=== PATIENT | male | born 1950 | race Caucasian/White ===

== ENCOUNTER 2016-08-04 15:48 | Outpatient (CLI) | payer MEDICARE, OTHER | END 2016-08-04 15:49 | disposition home or self-care (01) | DX: E29.1 Testicular hypofunction (principal) ==

== ENCOUNTER 2016-09-07 07:20 | Day surgery (SDC) | payer MEDICARE, OTHER ==
[2016-09-07] MEDS ORDERED: PHENYLEPHRINE 2.5% OPHTH 2 ML DROPS ONE (07:33)
[2016-09-07] MEDS ORDERED: LACTATED RINGERS 500 ML IV ONE (07:53)
[2016-09-07] MEDS ORDERED: PHENYLEPHRINE 2.5% OPHTH 2 ML DROPS OPTH ONE (07:57)
[2016-09-07] MEDS ORDERED: CYCLOPENTOLATE 1% OPHTH DROPS 2 ML OPTH ONE (07:57)
[2016-09-07] MEDS ORDERED: KETOROLAC 0.45% OPHTH DROPS OPTH ONE (07:57)
[2016-09-07] MEDS ORDERED: PROPARACAINE 0.5% OPHTH DROPS 15 ML OPTH ONE (07:57)
[2016-09-07] MEDS ORDERED: MIDAZOLAM 2 MG/2 ML VIAL IVP ONE (09:00)
[2016-09-07] MEDS ORDERED: PROPOFOL 200 MG/20 ML VIAL IVP ONE (09:00)
[2016-09-07] MEDS ORDERED: LIDOCAINE-PF 2% 10 ML AMP SUBQ ONE (09:00)
[2016-09-07] MEDS ORDERED: EPINEPHrine 1 MG/ML AMP IVP ONE (09:08)
[2016-09-07] MEDS ORDERED: BRIMONIDINE 0.2% OPHTH DROPS 5 ML OPTH ONE (09:08)
[2016-09-07] MEDS ORDERED: CHONDR SULF/HYALURONATE SYRINGE IO ONE (09:09)
[2016-09-07] MEDS ORDERED: TIMOLOL 0.5% OPHTH DROPS OPTH ONE (09:09)
[2016-09-07] MEDS ORDERED: BSS/LIDOCAINE/EPINEPHRINE 1 ML SYRINGE IO ONE (09:10)
[2016-09-07] MEDS ORDERED: TRIAMCIN/MOXIFLOX/VANCO 1 ML VIAL IO ONE (09:10)
== END 2016-09-07 07:21 | disposition home or self-care (01) ==
PROC: 08RJ3JZ Replacement of Right Lens with Synthetic Substitute, Percutaneous Approach (ICD-10-PCS; principal; 2016-09-07 08:30)
DX: H25.811 Combined forms of age-related cataract, right eye (principal); Z86.711 Personal history of pulmonary embolism; I10 Essential (primary) hypertension; G47.33 Obstructive sleep apnea (adult) (pediatric); Z87.01 Personal history of pneumonia (recurrent); F17.210 Nicotine dependence, cigarettes, uncomplicated; I48.91 Unspecified atrial fibrillation
CPT/HCPCS: 66984; A9270; V2632

== ENCOUNTER 2016-11-10 08:00 | Outpatient (CLI) | payer MEDICARE, OTHER ==
[2016-11-10 18:45] LABS: BASOPHILS # (AUTO) 0.1 10^3/uL (0.0-0.1); BASOPHILS % (AUTO) 0.7 %; EOSINOPHILS # (AUTO) 0.2 10^3/uL (0.0-0.7); EOSINOPHILS % (AUTO) 2.4 %; HCT - HEMATOCRIT 44.2 % (42.0-52.0); HGB - HEMOGLOBIN 15.5 g/dL (14.0-18.0); LYMPHOCYTES # (AUTO) 1.9 10^3/uL (1.5-3.5); LYMPHOCYTES % (AUTO) 22.6 %; MEAN CORPUSCULAR HEMOGLOBIN 32.1 pg (27.0-31.0); MEAN CORPUSCULAR HGB CONC 35.1 g/dL (32.0-36.0); MEAN CORPUSCULAR VOLUME 91.4 fL (80.0-94.0); MEAN PLATELET VOLUME 7.9 fL (7.4-11.4); MONOCYTES # (AUTO) 0.6 10^3/uL (0.0-1.0); MONOCYTES % (AUTO) 6.9 %; NEUTROPHILS # (AUTO) 5.6 10^3/uL (1.5-6.6); NEUTROPHILS % (AUTO) 67.4 %; RED BLOOD COUNT 4.84 10^6/uL (4.70-6.10); RED CELL DISTRIBUTION WIDTH 14.8 % (12.0-15.0); UNCORRECTED WHITE BLOOD COUNT 8.3 x10^3/uL; WHITE BLOOD COUNT 8.3 x10^3/uL (4.8-10.8)
== END 2016-11-10 08:01 | disposition home or self-care (01) ==
LOC: LAB.F 08:00
PROVIDERS: ATTEND Internal Medicine Endocrinology, Diabetes & Metabolism
DX: E29.1 Testicular hypofunction (principal)
CPT/HCPCS: 36415; 84153; 84403; 85025

== ENCOUNTER 2017-01-26 08:43 | Outpatient (CLI) | payer MEDICARE, OTHER ==
--- NOTE | 2017-01-26 11:12 | CT Report ---
CT BRAIN WITHOUT CONTRAST: 01/26/2017 CLINICAL INDICATION: Trauma. TECHNIQUE: Axial CT images of the brain were obtained without intravenous contrast. No previous CT is available for comparison. FINDINGS: The ventricles and sulci are normal in size, shape, and configuration. The basilar cister ns are patent. There is no evidence of hemorrhage, mass effect, or midline shift. The visualized or bital contents and paranasal sinuses are unremarkable. IMPRESSION: NORMAL CT OF THE BRAIN WITHOUT CONTRAST. In accordance with CT protocol optimization, one or more of the following dose reduction techniques w ere utilized for this exam: automated exposure control, adjustment of mA and/or KV based on patient size, or use of iterative reconstructive technique. JOB #: [id number] EXT JOB #:[id number]
--- NOTE | 2017-01-26 11:36 | XRAY Report ---
RIGHT HIP AND PELVIS: 01/26/2017 CLINICAL INDICATION: Pain. FINDINGS: Frontal view of the hips and pelvis and frogleg lateral view of the right hip demonstrate mild osteoarthritis. There is no evidence of acute fracture. Mild degenerative changes are seen in the sacroiliac joints. IMPRESSION: MILD RIGHT HIP OSTEOARTHRITIS. JOB #: [id number] EXT JOB #:[id number]
== END 2017-01-26 08:44 | disposition home or self-care (01) ==
LOC: DI 08:43
PROVIDERS: ATTEND Nurse Practitioner Family
DX: M25.551 Pain in right hip (principal); M16.11 Unilateral primary osteoarthritis, right hip; R51 Headache; S09.90XA Unspecified injury of head, initial encounter
CPT/HCPCS: 70450

== ENCOUNTER 2017-03-16 10:45 | Outpatient (CLI) | payer MEDICARE, OTHER ==
[2017-03-16 11:27] LABS: BASOPHILS # (AUTO) 0.1 10^3/uL (0.0-0.1); BASOPHILS % (AUTO) 0.7 %; EOSINOPHILS # (AUTO) 0.2 10^3/uL (0.0-0.7); EOSINOPHILS % (AUTO) 2.4 %; HCT - HEMATOCRIT 45.1 % (42.0-52.0); HGB - HEMOGLOBIN 15.7 g/dL (14.0-18.0); LYMPHOCYTES # (AUTO) 1.6 10^3/uL (1.5-3.5); LYMPHOCYTES % (AUTO) 19.6 %; MEAN CORPUSCULAR HEMOGLOBIN 31.3 pg (27.0-31.0); MEAN CORPUSCULAR HGB CONC 34.7 g/dL (32.0-36.0); MEAN CORPUSCULAR VOLUME 90.1 fL (80.0-94.0); MEAN PLATELET VOLUME 7.4 fL (7.4-11.4); MONOCYTES # (AUTO) 0.7 10^3/uL (0.0-1.0); MONOCYTES % (AUTO) 8.3 %; NEUTROPHILS # (AUTO) 5.8 10^3/uL (1.5-6.6); NUCLEATED RED BLOOD CELLS AUTO 0.1 /100WBC; RED BLOOD COUNT 5.01 10^6/uL (4.70-6.10); RED CELL DISTRIBUTION WIDTH 14.8 % (12.0-15.0); UNCORRECTED WHITE BLOOD COUNT 8.4 x10^3/uL; WHITE BLOOD COUNT 8.4 x10^3/uL (4.8-10.8)
== END 2017-03-16 10:46 | disposition home or self-care (01) ==
LOC: LAB 10:45
PROVIDERS: ATTEND Internal Medicine Endocrinology, Diabetes & Metabolism
DX: E29.1 Testicular hypofunction (principal)
CPT/HCPCS: 36415; 84153; 84403; 85025

== ENCOUNTER 2017-09-14 13:50 | Emergency (ER) | payer MEDICARE, OTHER ==
--- NOTE | 2017-09-14 14:24 | ED Physician Documentation ---
PD HPI CHEST PAIN - Stated complaint Stated Complaint: CHEST PX - Chief complaint Chief Complaint: Cardiac - History obtained from History obtained from: Patient, Family - History of Present Illness Timing - onset: How many days ago (3) Timing - onset during: Light activity Timing - duration: Days (3) Timing - details: Gradual onset, Still present, Waxing and waning Quality: Pressure, Sharp Location: Substernal Radiation: Left upper extremity Improved by: Rest, Other (water) Worsened by: Exertion, Inspiration Associated symptoms: Nausea, Feeling faint / dizzy. No: Shortness of air, Vomiting Similar symptoms before: Has not had sx before Recently seen: Clinic - Additional information Additional information: 67 y/o male developed anterior chest pain after getting on to his tractor to mow his lawn. This pain resolved with water. He subsequently had a return of the pain when he started to use his seeder and he has come to the ED today with pain. He has not shortness of breath or diaphoresis. Review of Systems Constitutional: denies: Fever Eyes: denies: Decreased vision Ears: denies: Ear pain Nose: denies: Congestion Throat: denies: Sore throat Cardiac: reports: Chest pain / pressure, Other (pain and fullness in the left femoral area.). denies: Palpitations, Pedal edema, Calf pain Respiratory: reports: Dyspnea, Cough GI: denies: Abdominal Pain, Nausea, Vomiting : denies: Dysuria, Frequency Skin: denies: Rash Musculoskeletal: denies: Neck pain, Back pain, Extremity pain Neurologic: denies: Generalized weakness, Focal weakness, Numbness PD PAST MEDICAL HISTORY - Past Medical History Cardiovascular: High cholesterol, Pulmonary embolism Respiratory: Pneumonia, Sleep apnea, CPAP use Neuro: None Endocrine/Autoimmune: None GI: Colon polyps, Hemorrhoids : None HEENT: Chronic vision loss Psych: None, Claustrophobia Musculoskeletal: Osteoarthritis Derm: Other - Past Surgical History Past Surgical History: Yes General: Colonoscopy Ortho: Knee replacement HEENT: Cataracts, Tonsil/Adenoidectomy - Present Medications Home Medications: Ambulatory Orders Medication Instructions Recorded Confirmed Hydrocodone/Acetaminophen 1 each PO DAILY 10/18/12 07/26/17 [Hydrocodon-Acetaminophn 10-325] Morphine Sulfate [Ms Contin] 15 mg PO TID 03/30/14 07/26/17 Testosterone Cypionate 120 mg IM ONCE 03/30/14 07/26/17 Aspirin [Aspir 81] 81 mg PO DAILY 07/03/14 07/26/17 - Allergies Allergies/Adverse Reactions: Allergies Allergy/AdvReac Type Severity Reaction Status Date / Time hydromorphone HCl * AdvReac Intermediate Respiratory Verified 09/14/17 14:32 [From Dilaudid] - Social History Does the pt smoke?: Yes Smoking Status: Current every day smoker Does the pt drink ETOH?: No Does the pt have substance abuse?: No - Immunizations Immunizations are current?: Yes - POLST Patient has POLST: No PD ED PE NORMAL - Vitals Vital signs reviewed: Yes (normal ) - General General: Alert and oriented X 3, No acute distress, Well developed/nourished, Other (large male in no distress. ) - HEENT HEENT: Atraumatic, PERRL, EOMI - Neck Neck: Supple, no meningeal sign - Cardiac Cardiac: RRR, No murmur - Respiratory Respiratory: No respiratory distress, Clear bilaterally - Abdomen Abdomen: Soft, Non tender - Back Back: No CVA TTP, No spinal TTP - Derm Derm: Normal color, Warm and dry, No rash - Extremities Extremities: No deformity, No edema, Other (There is a palpable lymph node in the left femoral area. There is palpable non-tender soft tissue accumulation in this same area when he is standing. This does not feel like bowel in the femoral area. ) - Neuro Neuro: No motor deficit, No sensory deficit Eye Opening: Spontaneous Motor: Obeys Commands Verbal: Oriented GCS Score: 15 - Psych Psych: Normal mood, Normal affect Results - Vitals Vitals: Vital Signs - 24 hr 09/14/17 09/14/17 09/14/17 13:56 14:27 16:31 Temperature 37.3 C Heart Rate 90 83 79 Respiratory 20 17 19 Rate Blood Pressure 125/76 118/68 128/63 O2 Saturation 93 94 95 Oxygen O2 Source Room air - EKG (time done) 1356 Rate: Rate (enter#) (85) [place]: LAD Compare to prior EKG: Changed from prior EKG Computer interpretation: Agree with computer - Labs Labs: Laboratory Tests 09/14/17 09/14/17 09/14/17 14:00 14:00 14:00 WBC 8.9 RBC 5.02 Hgb 16.5 Hct 46.2 MCV 92.1 MCH 32.9 H MCHC 35.7 RDW 15.2 H Plt Count 182 MPV 7.5 Neut # 6.3 Lymph # 1.5 [place] # 0.7 Eos # 0.2 Baso # 0.1 Absolute Nucleated RBC 0.00 Nucleated RBC % 0.0 D-Dimer Sodium 136 Potassium 3.8 Chloride 102 Carbon Dioxide 25 Anion Gap 9.0 BUN 11 Creatinine 1.0 Estimated GFR (MDRD) 74 L Glucose 114 H Calcium 9.2 Total Bilirubin 1.1 H AST 51 H ALT 44 Alkaline Phosphatase 49 Troponin I < 0.04 Total Protein 7.1 Albumin 4.3 Globulin 2.8 Albumin/Globulin Ratio 1.5 Lipase 24 09/14/17 09/14/17 14:00 16:15 WBC RBC Hgb Hct MCV MCH MCHC RDW Plt Count MPV Neut # Lymph # [place] # Eos # Baso # Absolute Nucleated RBC Nucleated RBC % D-Dimer TNP Sodium Potassium Chloride Carbon Dioxide Anion Gap BUN Creatinine Estimated GFR (MDRD) Glucose Calcium Total Bilirubin AST ALT Alkaline Phosphatase Troponin I < 0.04 Total Protein Albumin Globulin Albumin/Globulin Ratio Lipase - Rads (name of study) 2 view chest Radiology: Prelim report reviewed (Impression: 1. Normal heart size and clear hyperinflated lungs. 2. Stable lateral pleural thickening bilaterally. 3.Chronic degenerative changes of left shoulder.), EMP read indepedently, See rad report PD MEDICAL DECISION MAKING - ED course Complexity details: considered differential, d/w patient, d/w family ED course: 67-year-old male with episode of chest pain today that has persisted has negative troponin 2 and unchanged electrocardiogram clear chest x-ray and no hypoxia. He does have some improvement in this pain with the use of viscous lidocaine Mylanta. He has temporary resolution of the pain.He passes a road test here in the emergency department. Departure - Departure Disposition: 01 Home, Self Care Clinical Impression: Atypical chest pain Condition: Stable Instructions: ED Chest Pain Atypical Unkn Cause Follow-Up: Guille Lara MD [Provider Admit Priv/Credential] - Tylor Arana MD [Primary Care Provider] -
[2017-09-14 14:35] LABS: BASOPHILS # (AUTO) 0.1 10^3/uL (0.0-0.1); BASOPHILS % (AUTO) 0.7 %; EOSINOPHILS # (AUTO) 0.2 10^3/uL (0.0-0.7); EOSINOPHILS % (AUTO) 2.6 %; HGB - HEMOGLOBIN 16.5 g/dL (14.0-18.0); LYMPHOCYTES # (AUTO) 1.5 10^3/uL (1.5-3.5); LYMPHOCYTES % (AUTO) 17.3 %; MEAN CORPUSCULAR HEMOGLOBIN 32.9 pg (27.0-31.0); MEAN CORPUSCULAR HGB CONC 35.7 g/dL (32.0-36.0); MEAN CORPUSCULAR VOLUME 92.1 fL (80.0-94.0); MEAN PLATELET VOLUME 7.5 fL (7.4-11.4); MONOCYTES # (AUTO) 0.7 10^3/uL (0.0-1.0); MONOCYTES % (AUTO) 8.1 %; NEUTROPHILS # (AUTO) 6.3 10^3/uL (1.5-6.6); NEUTROPHILS % (AUTO) 71.3 %; PLT - PLATELET COUNT 182 10^3/uL (130-450); RED BLOOD COUNT 5.02 10^6/uL (4.70-6.10); RED CELL DISTRIBUTION WIDTH 15.2 % (12.0-15.0); WHITE BLOOD COUNT 8.9 x10^3/uL (4.8-10.8)
[2017-09-14 14:41] LABS: ALBUMIN 4.3 g/dL (3.2-5.5); ALBUMIN/GLOBULIN RATIO 1.5 (1.0-2.2); BILIRUBIN,TOTAL 1.1 mg/dL (0.2-1.0); CALCIUM 9.2 mg/dL (8.5-10.3); TOTAL PROTEIN 7.1 g/dL (6.7-8.2)
--- NOTE | 2017-09-14 15:24 | XRAY Report ---
EXAM: CHEST RADIOGRAPHY EXAM DATE: 09/14/2017 02:53 PM. CLINICAL HISTORY: Chest pain. COMPARISON: 06/06/2013. TECHNIQUE: 2 views. FINDINGS: Lungs/Pleura: Stable pleural thickening laterally on both sides, right worse than left. No sign of ef fusion or pneumothorax. Clear hyperinflated lungs. Mediastinum: Heart and mediastinal contours are unremarkable. Other: No compression fractures. Advanced degenerative changes of the left shoulder. IMPRESSION: 1. Normal heart size and clear hyperinflated lungs. 2. Stable lateral pleural thickening bilaterally. 3. Chronic degenerative changes of the left shoulder. [facility] Referring Provider Line: [phone] SITE ID: [id number]
--- NOTE | 2017-09-14 15:24 | XRAY Preliminary Report ---
Exam: XR CHEST 2 VIEW X-RAY IMPRESSION: 1. Normal heart size and clear hyperinflated lungs. 2. Stable lateral pleural thickening bilaterally. 3. Chronic degenerative changes of the left shoulder. [facility] SITE ID: [id number]
[2017-09-14] MEDS ORDERED: MAG HYDROX/AL HYDROX/SIMETH 30 ML UDC PO STA (17:44)
[2017-09-14] MEDS ORDERED: LIDOCAINE VISCOUS 2% 15 ML UDC MM STA (17:44)
[2017-09-14 17:51] VITALS: BP 131/99
== END 2017-09-14 18:32 | disposition home or self-care (01) ==
LOC: ED 13:50
DX: R07.89 Other chest pain (principal); E78.00 Pure hypercholesterolemia, unspecified; G47.30 Sleep apnea, unspecified; Z86.711 Personal history of pulmonary embolism; Z87.19 Personal history of other diseases of the digestive system; Z79.82 Long term (current) use of aspirin; M19.90 Unspecified osteoarthritis, unspecified site; F17.200 Nicotine dependence, unspecified, uncomplicated
CPT/HCPCS: 36415; 71046; 80053; 83690; 84484; 85025; 93005; 99283; A9270; 85379

== ENCOUNTER 2017-09-19 14:50 | Outpatient (CLI) | payer MEDICARE, OTHER ==
--- NOTE | 2017-09-19 16:21 | Ultrasound Report ---
ULTRASOUND LEFT INGUINAL REGION: 09/19/2017 CLINICAL INDICATION: Left upper thigh swelling, mass, question recurrent hernia. TECHNIQUE: Real-time scanning was performed with contracts representative static images obtained. FINDINGS: Ultrasound of the left groin and proximal thigh was performed. There is no evidence of a recurrent hernia. No hernia is identified. The region of swelling correlates with subcutaneous fat. Normal sized inguinal lymph nodes are present, which correlate with the palpable abnormalities identified by the patient within the region of swelling. No enlarged lymph node is identified. IMPRESSION: REGION OF SWELLING IN THE PROXIMAL LEFT UPPER THIGH CORRELATES WITH SUBCUTANEOUS FAT. PALPABLE ABNORMALITIES IDENTIFIED BY THE PATIENT WITHIN THE REGION OF SWELLING CORRELATE WITH NORMAL SIZED LEFT INGUINAL LYMPH NODES. NO RECURRENT HERNIA IS IDENTIFIED. TD: 09/19/2017 16:20
== END 2017-09-19 14:51 | disposition home or self-care (01) ==
LOC: DI 14:50
PROVIDERS: ATTEND Family Medicine
DX: R22.42 Localized swelling, mass and lump, left lower limb (principal)
CPT/HCPCS: 76857

== ENCOUNTER 2017-10-18 08:26 | Outpatient (CLI) | payer MEDICARE, OTHER | END 2017-10-18 08:27 | disposition home or self-care (01) | LOC: DI 08:26 | PROVIDERS: ATTEND Internal Medicine Cardiovascular Disease | DX: R07.9 Chest pain, unspecified (principal); I51.7 Cardiomegaly | CPT/HCPCS: 93306 ==

== ENCOUNTER 2017-10-18 12:40 | Outpatient (CLI) | payer MEDICARE, OTHER | END 2017-10-18 12:41 | disposition home or self-care (01) | LOC: RT 12:40 | PROVIDERS: ATTEND Internal Medicine Cardiovascular Disease | DX: I10 Essential (primary) hypertension (principal); I25.10 Atherosclerotic heart disease of native coronary artery without angina pectoris | CPT/HCPCS: 93005 ==

== ENCOUNTER 2017-11-02 09:19 | Outpatient (CLI) | payer MEDICARE, OTHER ==
[2017-11-02 09:41] LABS: CALCIUM 9.2 mg/dL (8.5-10.3); CREATININE 0.8 mg/dL (0.6-1.2)
== END 2017-11-02 09:20 | disposition home or self-care (01) ==
LOC: LAB 09:19
PROVIDERS: ATTEND Internal Medicine Cardiovascular Disease
DX: I10 Essential (primary) hypertension (principal)
CPT/HCPCS: 36415; 80048

== ENCOUNTER 2017-11-16 09:31 | Outpatient (CLI) | payer MEDICARE, OTHER ==
[2017-11-16 10:05] LABS: CALCIUM 9.2 mg/dL (8.5-10.3); CREATININE 0.8 mg/dL (0.6-1.2)
== END 2017-11-16 09:32 | disposition home or self-care (01) ==
LOC: LAB 09:31
PROVIDERS: ATTEND Internal Medicine Cardiovascular Disease
DX: I25.10 Atherosclerotic heart disease of native coronary artery without angina pectoris (principal)
CPT/HCPCS: 36415; 80048

== ENCOUNTER 2017-11-23 10:49 | Outpatient (CLI) | payer MEDICARE, OTHER ==
[2017-11-23 11:32] LABS: BASOPHILS # (AUTO) 0.1 10^3/uL (0.0-0.1); BASOPHILS % (AUTO) 0.7 %; EOSINOPHILS # (AUTO) 0.2 10^3/uL (0.0-0.7); LYMPHOCYTES # (AUTO) 1.6 10^3/uL (1.5-3.5); LYMPHOCYTES % (AUTO) 20.4 %; MEAN CORPUSCULAR HEMOGLOBIN 32.4 pg (27.0-31.0); MEAN CORPUSCULAR HGB CONC 35.3 g/dL (32.0-36.0); MEAN CORPUSCULAR VOLUME 91.8 fL (80.0-94.0); MEAN PLATELET VOLUME 7.5 fL (7.4-11.4); MONOCYTES # (AUTO) 0.8 10^3/uL (0.0-1.0); MONOCYTES % (AUTO) 10.4 %; NEUTROPHILS # (AUTO) 5.2 10^3/uL (1.5-6.6); NEUTROPHILS % (AUTO) 65.5 %; PLT - PLATELET COUNT 186 10^3/uL (130-450); RED BLOOD COUNT 4.93 10^6/uL (4.70-6.10); RED CELL DISTRIBUTION WIDTH 15.1 % (12.0-15.0)
== END 2017-11-23 10:50 | disposition home or self-care (01) ==
LOC: LAB 10:49
PROVIDERS: ATTEND Internal Medicine Endocrinology, Diabetes & Metabolism
DX: E29.1 Testicular hypofunction (principal)
CPT/HCPCS: 36415; 84403; 85025

== ENCOUNTER 2018-01-11 09:38 | Outpatient (CLI) | payer MEDICARE, OTHER ==
[2018-01-11 10:04] LABS: CALCIUM 9.2 mg/dL (8.5-10.3); CREATININE 0.7 mg/dL (0.6-1.2)
== END 2018-01-11 09:39 | disposition home or self-care (01) ==
LOC: LAB 09:38
PROVIDERS: ATTEND Internal Medicine Cardiovascular Disease
DX: I50.9 Heart failure, unspecified (principal)
CPT/HCPCS: 36415; 80048

== ENCOUNTER 2018-01-25 10:06 | Outpatient (CLI) | payer MEDICARE, OTHER ==
[2018-01-25 10:37] LABS: BILIRUBIN,URINE NEGATIVE (NEGATIVE); GLUCOSE, URINE (UA) NEGATIVE (NEGATIVE); KETONES,URINE (UA) NEGATIVE (NEGATIVE); LEUKOCYTE ESTERASE, URINE NEGATIVE (NEGATIVE); NITRITE,URINE NEGATIVE (NEGATIVE); OCCULT BLOOD,URINE NEGATIVE (NEGATIVE); PROTEIN,URINE NEGATIVE (NEGATIVE); UROBILINOGEN,URINE 0.2 (NORMAL) E.U./dL (NORMAL)
[2018-01-25 10:38] LABS: CLARITY,URINE CLEAR (CLEAR)
== END 2018-01-25 10:07 | disposition home or self-care (01) ==
LOC: LAB 10:06
PROVIDERS: ATTEND Family Medicine
DX: R30.0 Dysuria (principal)
CPT/HCPCS: 81001; 81003; 87086

== ENCOUNTER 2018-02-07 11:36 | Outpatient (CLI) | payer MEDICARE, OTHER ==
[2018-02-07 12:24] LABS: ALBUMIN 4.3 g/dL (3.2-5.5); ALBUMIN/GLOBULIN RATIO 1.6 (1.0-2.2); BILIRUBIN,TOTAL 1.2 mg/dL (0.2-1.0); CALCIUM 9.3 mg/dL (8.5-10.3); CREATININE 0.6 mg/dL (0.6-1.2)
== END 2018-02-07 11:37 | disposition home or self-care (01) ==
LOC: LAB 11:36
PROVIDERS: ATTEND Internal Medicine Cardiovascular Disease
DX: I50.9 Heart failure, unspecified (principal)
CPT/HCPCS: 36415; 80053

== ENCOUNTER 2018-02-22 09:35 | Outpatient (CLI) | payer MEDICARE, OTHER ==
[2018-02-22 10:17] LABS: CALCIUM 9.5 mg/dL (8.5-10.3); CREATININE 0.8 mg/dL (0.6-1.2)
== END 2018-02-22 09:36 | disposition home or self-care (01) ==
LOC: LAB 09:35
PROVIDERS: ATTEND Internal Medicine Cardiovascular Disease
DX: I50.9 Heart failure, unspecified (principal)
CPT/HCPCS: 36415; 80048

== ENCOUNTER 2018-03-22 09:39 | Outpatient (CLI) | payer MEDICARE, OTHER ==
[2018-03-22 10:21] LABS: CALCIUM 9.4 mg/dL (8.5-10.3); CREATININE 0.9 mg/dL (0.6-1.2)
== END 2018-03-22 09:40 | disposition home or self-care (01) ==
LOC: LAB 09:39
PROVIDERS: ATTEND Internal Medicine Cardiovascular Disease
DX: I50.9 Heart failure, unspecified (principal)
CPT/HCPCS: 36415; 80048

== ENCOUNTER 2018-05-17 08:55 | Outpatient (CLI) | payer MEDICARE, OTHER ==
--- NOTE | 2018-05-17 10:14 | XRAY Report ---
Reason: PNEUMONIA Procedure Date: 05/17/2018 Accession Number: [id number] / [id number] Procedure: XR - Chest 2 View X-Ray CPT Code: 49500 FULL RESULT: EXAM: CHEST RADIOGRAPHY EXAM DATE: 05/17/2018 09:16 AM. CLINICAL HISTORY: Cough, fever, shortness of breath. History of pneumonia. COMPARISON: CHEST 2 VIEW 09/14/2017 2:40 PM. TECHNIQUE: 2 views. FINDINGS: Lungs/Pleura: Mild streaky opacity at the base of the left lower lobe is increased compared to the prior exam. There is stable appearance of pleural thickening laterally on both sides of the chest. No pleural effusion. No pneumothorax. Mediastinum: Heart and mediastinal contours are unremarkable. Other: No acute osseous abnormality. There are mild degenerative disk changes of the thoracic spine. There are severe degenerative changes of the partially visualized left shoulder. IMPRESSION: 1. Streaky opacity at the base of the left lower lobe is slightly increased in density compared to the prior exam. This may represent atelectasis, aspiration, or developing pneumonia. 2. Stable lateral pleural thickening bilaterally. No pleural effusion. [facility]
== END 2018-05-17 08:56 | disposition home or self-care (01) ==
LOC: DI 08:55
PROVIDERS: ATTEND Nurse Practitioner Family
DX: J18.9 Pneumonia, unspecified organism (principal)
CPT/HCPCS: 71046

== ENCOUNTER 2018-05-17 09:26 | Emergency (ER) | payer MEDICARE, OTHER ==
--- NOTE | 2018-05-17 11:41 | ED Physician Documentation ---
PD HPI DYSPNEA - Stated complaint Stated Complaint: COUGHING/WEAKNESS - Chief complaint Chief Complaint: Resp - History obtained from History obtained from: Patient, Family (spouse) - History of Present Illness Timing - onset: How many weeks ago (1) Timing - duration: Weeks (1) Timing - details: Still present Worsened by: Laying flat, Coughing Associated symptoms: Fever, Cough Similar symptoms before: Diagnosis (History of pneumonia years ago.) Recently seen: Clinic (Was seen in clinic four days ago.) - Additional information Additional information: The patient is a 68-year-old male with history of sleep apnea, who uses CPAP, and who presents with productive cough and shortness of breath that is been progressing over the past week. He has had associated fever, and reports that his sleep has been impaired because of his coughing. He was seen by his primary physician 4 days ago and started taking Zithromax 2 days ago. An outpatient chest x-ray was done this morning, revealing left lower lobe infiltrate, prompting his presentation to the emergency department at this time. He has a past history of pneumonia years ago. He also has a history of right calf DVT years ago. He continues to smoke cigarettes. Review of Systems Constitutional: reports: Fever, Fatigue Ears: denies: Tinnitus/ringing Nose: denies: Congestion Throat: denies: Sore throat Cardiac: denies: Chest pain / pressure Respiratory: reports: Dyspnea, Cough GI: denies: Abdominal Pain, Nausea, Vomiting : denies: Dysuria Skin: denies: Rash Musculoskeletal: denies: Extremity pain, Extremity swelling Neurologic: denies: Focal weakness, Numbness, Headache PD PAST MEDICAL HISTORY - Past Medical History Past Medical History: Yes Cardiovascular: High cholesterol, Coronary artery disease, Deep vein thrombosis, [place] Respiratory: Pneumonia, Sleep apnea, CPAP use Neuro: Headaches Endocrine/Autoimmune: None GI: Colon polyps, Hemorrhoids, Other : None HEENT: Chronic vision loss Psych: None, Claustrophobia Musculoskeletal: Osteoarthritis Derm: Other - Past Surgical History Past Surgical History: Yes General: Colonoscopy, Other Ortho: Knee replacement HEENT: Cataracts, Tonsil/Adenoidectomy - Present Medications Home Medications: Ambulatory Orders Medication Instructions Recorded Confirmed Hydrocodone/Acetaminophen 1 each PO DAILY 10/18/12 04/19/18 [Hydrocodon-Acetaminophn 10-325] Morphine Sulfate [Ms Contin] 15 mg PO TID 03/30/14 04/19/18 Testosterone Cypionate 120 mg IM ONCE 03/30/14 04/19/18 Aspirin [Aspir 81] 81 mg PO DAILY 07/03/14 04/19/18 Carvedilol 12.5 mg PO BID 10/18/17 04/19/18 Atorvastatin [Lipitor] 20 mg PO DAILY 04/19/18 04/19/18 Cholecalciferol (Vitamin D3) 2,000 units 04/19/18 [Vitamin D3] Losartan [Cozaar] 50 mg PO DAILY 04/19/18 04/19/18 Albuterol Sulf [Ventolin Hfa 1 - 2 puffs INH Q4HR PRN #1 inhaler 05/17/18 Inhaler] Azithromycin [Zithromax] 0 mg PO DAILY #6 tablet 05/17/18 - Allergies Allergies/Adverse Reactions: Allergies Allergy/AdvReac Type Severity Reaction Status Date / Time hydromorphone HCl * AdvReac Intermediate Respiratory Verified 05/17/18 09:39 [From Dilaudid] - Living Situation Living Situation: reports: With spouse/s.o. - Social History Does the pt smoke?: Yes Smoking Status: Current every day smoker Does the pt drink ETOH?: No Does the pt have substance abuse?: No - Immunizations Immunizations are current?: Yes - POLST Patient has POLST: No PD ED PE NORMAL - Vitals Vital signs reviewed: Yes (Borderline hypertension initially.) - General General: Alert and oriented X 3, Well developed/nourished - HEENT HEENT: Atraumatic, Pharynx benign - Neck Neck: No adenopathy, No JVD - Cardiac Cardiac: RRR - Respiratory Respiratory: Other (Rhonchi bilaterally, more on the left than the right.) - Abdomen Abdomen: Soft, Non tender - Back Back: No CVA TTP - Derm Derm: No rash - Extremities Extremities: No edema, No calf tenderness / cord - Neuro Neuro: Alert and oriented X 3, No motor deficit, No sensory deficit Results - Vitals Vitals: Vital Signs - 24 hr 05/17/18 05/17/18 09:37 13:39 Temperature 36.7 C 36.6 C Heart Rate 74 70 Respiratory 20 18 Rate Blood Pressure 136/73 H 121/49 L O2 Saturation 92 95 Oxygen O2 Source Room air - Labs Labs: Laboratory Tests 05/17/18 05/17/18 05/17/18 12:03 12:03 12:03 WBC 8.2 RBC 4.82 Hgb 15.8 Hct 43.6 MCV 90.5 MCH 32.7 H MCHC 36.1 H RDW 15.5 H Plt Count 190 MPV 7.0 L Neut # (Auto) 5.6 Lymph # (Auto) 1.7 [place] # (Auto) 0.5 Eos # (Auto) 0.3 Baso # (Auto) 0.1 Absolute Nucleated RBC 0.00 Nucleated RBC % 0.0 Sodium 138 Potassium 4.1 Chloride 101 Carbon Dioxide 28 Anion Gap 9.0 BUN 14 Creatinine 0.8 Estimated GFR (MDRD) 96 Glucose 119 H Calcium 9.5 Total Bilirubin 1.8 H AST 48 H ALT 47 Alkaline Phosphatase 56 Troponin I < 0.04 B-Natriuretic Peptide Total Protein 7.6 Albumin 4.7 Globulin 2.9 Albumin/Globulin Ratio 1.6 Lipase 31 05/17/18 12:03 WBC RBC Hgb Hct MCV MCH MCHC RDW Plt Count MPV Neut # (Auto) Lymph # (Auto) [place] # (Auto) Eos # (Auto) Baso # (Auto) Absolute Nucleated RBC Nucleated RBC % Sodium Potassium Chloride Carbon Dioxide Anion Gap BUN Creatinine Estimated GFR (MDRD) Glucose Calcium Total Bilirubin AST ALT Alkaline Phosphatase Troponin I B-Natriuretic Peptide 18 Total Protein Albumin Globulin Albumin/Globulin Ratio Lipase - Rads (name of study) CXR Radiology: Prelim report reviewed, EMP read contemporaneously, See rad report (1) Streaky opacity at the base of the left lower lobe is slightly increased in density compared to the prior exam. This may represent atelectasis, aspiration, or developing pneumonia. 2) Stable lateral pleural thickening bilaterally. No pleural effusion.) PD MEDICAL DECISION MAKING - ED course Complexity details: reviewed results, re-evaluated patient, considered differential, d/w patient, d/w family ED course: The patient's presentation is most consistent with left lower lobe pneumonia, which is visualized on chest x-ray. Congestive heart failure was considered, but is unlikely with a normal BNP of 18. Troponin is also normal at less than 0.04. I doubt pulmonary embolus. Treatment in the emergency department included administration of DuoNeb nebulizer which did improve his air movement. Ceftriaxone 1 g was administered IV, and ibuprofen 800 mg orally. He is being discharged with a prescription for albuterol inhaler, and a full treatment course of Zithromax. I discussed with him and his the expected course of illness, antibiotic treatment and outpatient follow-up, as well as potentially worrisome signs or symptoms that should prompt reevaluation in the emergency department. Departure - Departure Disposition: 01 Home, Self Care Clinical Impression: Pneumonia Qualifiers: Pneumonia type: due to unspecified organism Laterality: left Lung location: lower lobe of lung Qualified Code(s): J18.1 - Lobar pneumonia, unspecified organism Condition: Stable Instructions: ED Pneumonia Adult Follow-Up: Tylor Arana MD [Provider Admit Priv/Credential] - Prescriptions: Albuterol Sulf [Ventolin Hfa Inhaler] 1 - 2 puffs INH Q4HR PRN #1 inhaler PRN Reason: Shortness Of Air/Wheezing Azithromycin [Zithromax] 0 mg PO DAILY #6 tablet Comments: Drink plenty of fluids. Take Zithromax daily as prescribed. Use albuterol inhaler as needed for difficulty breathing. Try to stop smoking cigarettes. Follow-up with your primary physician within 1 week. Call to schedule an appointment. Return to the emergency department if you develop increasing difficulty breathing, or otherwise worsening symptoms. Discharge Date/Time: 05/17/18 13:57
[2018-05-17] MEDS: IBUPROFEN 800 MG TABLET PO STA (11:59)
[2018-05-17] MEDS: IPRATROPIUM/ALBUTEROL 3 ML NEB INH STA (11:59)
[2018-05-17] MEDS: cefTRIAXone 1 GM in SODIUM CHLORIDE 0.9% MINIBAG 100 ML IV STA (11:59)
[2018-05-17 12:22] LABS: BASOPHILS # (AUTO) 0.1 10^3/uL (0.0-0.1); BASOPHILS % (AUTO) 0.7 %; EOSINOPHILS # (AUTO) 0.3 10^3/uL (0.0-0.7); EOSINOPHILS % (AUTO) 3.4 %; HGB - HEMOGLOBIN 15.8 g/dL (14.0-18.0); LYMPHOCYTES # (AUTO) 1.7 10^3/uL (1.5-3.5); LYMPHOCYTES % (AUTO) 21.3 %; MEAN CORPUSCULAR HEMOGLOBIN 32.7 pg (27.0-31.0); MEAN CORPUSCULAR HGB CONC 36.1 g/dL (32.0-36.0); MEAN CORPUSCULAR VOLUME 90.5 fL (80.0-94.0); MONOCYTES # (AUTO) 0.5 10^3/uL (0.0-1.0); MONOCYTES % (AUTO) 6.4 %; NEUTROPHILS # (AUTO) 5.6 10^3/uL (1.5-6.6); NEUTROPHILS % (AUTO) 68.2 %; PLT - PLATELET COUNT 190 10^3/uL (130-450); RED BLOOD COUNT 4.82 10^6/uL (4.70-6.10); RED CELL DISTRIBUTION WIDTH 15.5 % (12.0-15.0); WHITE BLOOD COUNT 8.2 x10^3/uL (4.8-10.8)
[2018-05-17] MEDS: ERYTHROMYCIN OPHTH OINT 1 GM TUBE RIGHTEYE STA (12:30)
[2018-05-17 12:35] LABS: ALBUMIN 4.7 g/dL (3.2-5.5); ALBUMIN/GLOBULIN RATIO 1.6 (1.0-2.2); BILIRUBIN,TOTAL 1.8 mg/dL (0.2-1.0); CALCIUM 9.5 mg/dL (8.5-10.3); CREATININE 0.8 mg/dL (0.6-1.2); TOTAL PROTEIN 7.6 g/dL (6.7-8.2)
[2018-05-17 13:42] VITALS: BP 121/49
== END 2018-05-17 13:57 | disposition home or self-care (01) ==
LOC: ED 09:26
DX: J18.1 Lobar pneumonia, unspecified organism (principal); F17.200 Nicotine dependence, unspecified, uncomplicated; Z79.82 Long term (current) use of aspirin
CPT/HCPCS: 36415; 71046; 80053; 83690; 83880; 84484; 85025; 94640; 94664; 96365; 99283; A9270

== ENCOUNTER 2018-06-04 11:27 | Outpatient (CLI) | payer MEDICARE, OTHER | END 2018-06-04 11:28 | disposition home or self-care (01) | LOC: DI 11:27 | PROVIDERS: ATTEND Internal Medicine Cardiovascular Disease | DX: I11.0 Hypertensive heart disease with heart failure (principal); I50.9 Heart failure, unspecified | CPT/HCPCS: 93306 ==

== ENCOUNTER 2018-06-20 09:25 | Outpatient (CLI) | payer MEDICARE, OTHER | END 2018-06-20 09:26 | disposition home or self-care (01) | LOC: LAB 09:25 | PROVIDERS: ATTEND Internal Medicine Endocrinology, Diabetes & Metabolism | DX: E29.1 Testicular hypofunction (principal) | CPT/HCPCS: 36415; 84403 ==

== ENCOUNTER 2018-08-30 14:40 | Outpatient (CLI) | payer MEDICARE, OTHER ==
[2018-08-30 15:14] LABS: HGB - HEMOGLOBIN 16.1 g/dL (14.0-18.0)
== END 2018-08-30 14:41 | disposition home or self-care (01) ==
LOC: LAB 14:40
PROVIDERS: ATTEND Internal Medicine Endocrinology, Diabetes & Metabolism
DX: E29.1 Testicular hypofunction (principal)
CPT/HCPCS: 36415; 84153; 84403; 85014; 85018

== ENCOUNTER 2018-12-06 11:59 | Outpatient (CLI) | payer MEDICARE, OTHER | END 2018-12-06 12:00 | disposition home or self-care (01) | LOC: LAB 11:59 | PROVIDERS: ATTEND Student in an Organized Health Care Education/Training Program | DX: E29.1 Testicular hypofunction (principal) | CPT/HCPCS: 36415; 84403 ==

== ENCOUNTER 2018-12-13 09:49 | Outpatient (CLI) | payer MEDICARE, OTHER | END 2018-12-13 09:50 | disposition home or self-care (01) | LOC: DI 09:49 | PROVIDERS: ATTEND Internal Medicine Cardiovascular Disease | DX: I25.2 Old myocardial infarction (principal); I51.7 Cardiomegaly | CPT/HCPCS: 93306 ==

== ENCOUNTER 2019-01-17 19:20 | Outpatient (CLI) | payer MEDICARE, OTHER ==
--- NOTE | 2019-01-19 10:14 | Ultrasound Report ---
Reason: H/O CAROTID PLAQUE Procedure Date: 01/17/2019 Accession Number: [id number] / [id number] Procedure: US - Carotid Doppler Complete CPT Code: FULL RESULT: EXAM: BILATERAL CAROTID AND VERTEBRAL ARTERY DUPLEX DOPPLER ULTRASOUND: EXAM DATE: 01/17/2019 07:39 PM CLINICAL HISTORY: History of carotid plaque. COMPARISON: None. TECHNIQUE: Grayscale imaging, color Doppler, and duplex spectral Doppler were used to evaluate the carotid and vertebral arteries bilaterally. Static images were obtained. FINDINGS: Mild atheromatous plaques are present in the right carotid bulb extending into the internal carotid artery. However, no hemodynamically significant stenoses are noted. Mild atheromatous plaques are present in the left carotid bulb extending into the internal carotid artery. Based on strict velocity criteria, elevated velocities in the mid left internal carotid artery are concerning for a stenosis of 50-69%. However, the color and grayscale imaging suggests a lesser degree of stenosis. Visualized portions of the neck soft tissues are grossly unremarkable. Normal antegrade flow is present in bilateral vertebral arteries. Elevated velocities are noted in the right external carotid artery concerning for a component of stenosis. VELOCITIES (cm/sec): RIGHT: CCA mid: PSV 108 cm/sec CCA dist: PSV 77 cm/sec ICA prox: PSV 96 cm/sec, EDV 16.4 cm/sec ICA mid: PSV 61 cm/sec, EDV 9.1 cm/sec ICA dist: PSV 66 cm/sec, EDV 16 cm/sec ECA: PSV 227 cm/sec Vert: PSV 42 cm/sec ICA/CCA: 0.9 LEFT: CCA mid: PSV 100 cm/sec CCA dist: PSV 139 cm/sec ICA prox: PSV 84 cm/sec, EDV 18.2 cm/sec ICA mid: PSV 129 cm/sec, EDV 22.8 cm/sec ICA dist: PSV 98 cm/sec, EDV 28.9 cm/sec ECA: PSV 110 cm/sec Vert: PSV 69 cm/sec ICA/CCA: 0.9 ICA diameter stenosis: Right: <50% by velocity and <70% by NASCET criteria. Left: 50-69% by velocity and <70% by NASCET criteria. IMPRESSION: 1. Mild bilateral carotid artery plaquing. 2. In the right carotid artery there are no elevated carotid artery velocities to suggest hemodynamically significant stenosis. 3. Based on strict velocity criteria, elevated velocities in the mid left internal carotid artery are concerning for a stenosis of 50-69%. However, the color and grayscale imaging suggests a lesser degree of stenosis. Recommend further evaluation with contrast-enhanced CT angiogram of the head and neck. 4. Normal antegrade flow is present in bilateral vertebral arteries. 5. Elevated velocities in the right external carotid artery could represent stenosis. General Recommendations: Stenosis =50% ICA - Follow-up ultrasound 6-12 months Stenosis <50% ICA - High Risk Patient with plaque - Follow-up ultrasound 1-2 years Normal Study but High Risk Patient - Follow-up ultrasound 3-5 years Management recommendations and diagnostic criteria are based on current IAC endorsed standards in Carotid Artery Stenosis: Grayscale and Doppler Ultrasound Diagnosis. Validated velocity measurements with angiographic measurements and velocity criteria are extrapolated from diameter data as defined by the Society of Radiologists in Ultrasound Consensus Conference Radiology 2003; 229;340-346. [facility]
== END 2019-01-17 19:21 | disposition home or self-care (01) ==
LOC: DI 19:20
PROVIDERS: ATTEND Internal Medicine Cardiovascular Disease
DX: I65.23 Occlusion and stenosis of bilateral carotid arteries (principal)
CPT/HCPCS: 93880

== ENCOUNTER 2019-06-06 15:57 | Outpatient (CLI) | payer MEDICARE, OTHER | END 2019-06-06 15:58 | disposition home or self-care (01) | LOC: LAB 15:57 | PROVIDERS: ATTEND Internal Medicine Endocrinology, Diabetes & Metabolism | DX: E29.1 Testicular hypofunction (principal) | CPT/HCPCS: 84403 ==

== ENCOUNTER 2019-06-07 11:25 | Outpatient (CLI) | payer MEDICARE, OTHER | END 2019-06-07 11:26 | disposition home or self-care (01) | LOC: LAB 11:25 | PROVIDERS: ATTEND Internal Medicine Endocrinology, Diabetes & Metabolism | DX: E29.1 Testicular hypofunction (principal) | CPT/HCPCS: 36415; 84403 ==

== ENCOUNTER 2020-03-05 13:15 | Outpatient (CLI) | payer MEDICARE, OTHER | END 2020-03-05 23:59 | LOC: LAB.R 13:15 | PROVIDERS: ATTEND Physician Assistant Medical | DX: L03.115 Cellulitis of right lower limb (principal) | CPT/HCPCS: 81599; 87070; 87075; 87205 ==

== ENCOUNTER 2020-03-10 18:41 | Outpatient (CLI) | payer MEDICARE, OTHER ==
--- NOTE | 2020-03-11 17:32 | Ultrasound Report ---
PROCEDURE: Duplex Lwr Ext Arterial Bilat INDICATIONS: OPEN WOUND OF RT LOWER LEG TECHNIQUE: Color and pulse Doppler interrogation was performed of both lower extremity arterial systems, with im age documentation. COMPARISON: None FINDINGS: Right lower extremity: Common femoral artery: 115 cm/sec, with triphasic flow. Deep femoral artery: 54.7 cm/sec, with biphasic flow. Proximal superficial femoral artery: 110.5 cm/sec, with triphasic flow. Mid superficial femoral artery: 71.8 cm/sec, with triphasic flow. Distal superficial femoral artery: 80 cm/sec, with triphasic flow. Popliteal artery: 77 cm/sec, with triphasic flow. Posterior tibial artery: 136 cm/sec, with triphasic flow. Anterior tibial artery/dorsalis pedis: 66/104 cm/sec, with triphasic flow. [place]-scale imaging description: Tortuous right profundus femoris. Scattered calcified and noncalcifi ed aortic plaque. No flow limiting stenosis visualized on grayscale imaging. Left lower extremity: Common femoral artery: 200.1 cm/sec, with triphasic flow. Deep femoral artery: 68 cm/sec, with biphasic flow. Proximal superficial femoral artery: 109 cm/sec, with triphasic flow. Mid superficial femoral artery: 107 cm/sec, with triphasic flow. Distal superficial femoral artery: 96 cm/sec, with triphasic flow. Popliteal artery: 80 cm/sec, with triphasic flow. Posterior tibial artery: 109 cm/sec, with triphasic flow. Anterior tibial artery/dorsalis pedis: 65.3/92.8 cm/sec, with biphasic/triphasic flow. [place]-scale imaging description: Calcified and noncalcified atherosclerotic plaque with no focal hemo dynamically significant stenosis demonstrated IMPRESSION: Elevated flow velocity in the left common femoral arteries suggestive of high-grade stenosis, althoug h there is no grayscale evidence for severe narrowing. Large segmental velocity decreased between the common femoral artery and deep femoral artery on the r ight, with biphasic flow in the deep femoral artery. This is suggestive of a clinically significant s tenosis in either the common femoral artery, versus in the origin or proximal segment of the profunda femoris. Patient body habitus severely limits evaluation. CT angiogram is recommended if there is clinical con cern for hemodynamically significant limb ischemia contributing to poor wound healing. Arrhythmia is noted. EKG correlation recommended. Reviewed by: Maximilian Lyons MD on 03/11/2020 5:31 PM PDT Approved by: Maximilian Lyons MD on 03/11/2020 5:31 PM PDT Station ID: [id number]
== END 2020-03-10 18:42 | disposition home or self-care (01) ==
LOC: DI 18:41
PROVIDERS: ATTEND Nurse Practitioner Family
DX: S81.801D Unspecified open wound, right lower leg, subsequent encounter (principal); R93.6 Abnormal findings on diagnostic imaging of limbs; I49.9 Cardiac arrhythmia, unspecified
CPT/HCPCS: 93925

== ENCOUNTER 2020-03-19 15:33 | Outpatient (CLI) | payer MEDICARE, OTHER ==
--- NOTE | 2020-03-19 22:00 | Ultrasound Report ---
PROCEDURE: Ankle Brachial Index INDICATIONS: FEMORAL ARTERY STENOSIS TECHNIQUE: Ankle-brachial indices were obtained bilaterally and recorded. COMPARISONS: 03/10/2020 lower extremity bilateral arterial ultrasound.. FINDINGS: Right ankle brachial index (ACE): 1.3, normal. Left ankle brachial index (ACE): 1.3, normal. Healing potential: Ankle pressures >55 mm Hg in non-diabetics and >80 mm Hg in diabetics are likely to achieve primary h ealing of ischemic foot ulcers. Toe pressures >30 mm Hg are likely to achieve primary healing of ischemic foot ulcers, toe or transme tatarsal amputations. IMPRESSION: Normal bilateral ankle-brachial index of 1.3. Reviewed by: Kelton Tineo MD on 03/19/2020 9:59 PM PDT Approved by: Kelton Tineo MD on 03/19/2020 9:59 PM PDT Station ID: [id number]
== END 2020-03-19 15:34 | disposition home or self-care (01) ==
LOC: DI 15:33
PROVIDERS: ATTEND Nurse Practitioner Family
DX: I70.209 Unspecified atherosclerosis of native arteries of extremities, unspecified extremity (principal)
CPT/HCPCS: 93922

== ENCOUNTER 2020-06-18 08:00 | Outpatient (CLI) | payer MEDICARE, OTHER | END 2020-06-18 23:59 | disposition home or self-care (01) | LOC: LAB 08:00 | PROVIDERS: ATTEND Internal Medicine Endocrinology, Diabetes & Metabolism | DX: E29.1 Testicular hypofunction (principal) | CPT/HCPCS: 36415; 84403 ==

== ENCOUNTER 2020-10-08 08:36 | Outpatient (CLI) | payer MEDICARE, OTHER | END 2020-10-08 08:37 | disposition home or self-care (01) | LOC: LAB 08:36 | PROVIDERS: ATTEND Internal Medicine Endocrinology, Diabetes & Metabolism | DX: E29.1 Testicular hypofunction (principal) | CPT/HCPCS: 36415; 84403 ==

== ENCOUNTER 2020-12-23 11:05 | Outpatient (CLI) | payer MEDICARE, OTHER ==
[2020-12-23] MEDS ORDERED: AMINOPHYLLINE 500 MG/20 ML VIAL ONE (12:04)
[2020-12-23] MEDS ORDERED: REGADENOSON 0.4 MG/5 ML SYRINGE IVP ONE ×2 (12:04→16:35)
--- NOTE | 2020-12-23 12:33 | CARDIAC PROCEDURE NOTE ---
Stress Test Report Service Date: 12/23/20 Service Time: 12:15 Ordering Provider: Guille Lara MD Indication for Test: Assess for inducible ischemia in patient with reported prior SC and intermittent chest discomfort. Significant Medical History: 70 yr old man with reported SC "a few years ago" with prior abnormal myocardial imaging; describes chest discomfort of typical anginal character but atypical pattern of occurrence, intermittently triggered by stress or pain from chronic foot injuries, not typically exertional. Rarely uses SL NTG, not on baseline anti-anginal meds. Cardiac Risk Factors: Reported history of prior SC; has intermittent/occasional smoking history, denies hypertension and diabetes; is on statin, though denies hyperlipidemia, thus likely for secondary prevention. Type of Stress Test: Pharmacologic Stress Test with MPI Pharmacologic Agent: Lexiscan (Walking) Procedure: -Pharmacologic Stress Test- After signing informed consent, the patient underwent a pharmacologic stress test using lexiscan, while walking slowly on the treadmill. The test was terminated due to completing the protocol. Resting heart rate: 69 Peak heart rate: 106 Normal HR response. Resting BP: 134/76 Peak BP: 130/82 Normal BP response. Rhythm during testing: Sinus rhythm throughout, with occasional multiform PVCs. Symptoms: None. EKG at rest showed normal sinus rhythm, with borderline nonspecific intraventricular conduction delay. EKG at peak stress showed no ischemia by EKG criteria. Frequency of PVCs increased slightly. In Recovery EKG remained stable, with decrease in PVC frequency. Nuclear imaging was performed with stress, with rest images to be obtained the following day. Summary: 1) Abnormal resting EKG. 2) Adequate stress was achieved. 3) Normal BP response to pharmacologic agent. 4) No ischemic changes by EKG criteria were seen at peak. 5) Analysis of nuclear images revealed normal resting/stress perfusion, thus without evidence of prior infarct or inducible ischemia. LV cavity size was moderately to severely enlarged by SPECT imaging, but with low normal range EF of 51%. See separate Nuclear imaging report for more detail. CONCLUSIONS: 1. Low risk study, without evidence of prior infarct or inducible ischemia. 2. LV enlargement present, but with low normal range ejection fraction, with caveat that SPECT imaging may underestimate true EF.
[2020-12-23] MEDS ORDERED: LORazepam 2 MG/ML VIAL IVP STA (13:38)
[2020-12-23] MEDS ORDERED: LORazepam 2 MG/ML VIAL ONE (13:49)
[2020-12-24] MEDS ORDERED: LORazepam 2 MG/ML VIAL IVP STA (10:49)
[2020-12-24] MEDS ORDERED: LORazepam 2 MG/ML VIAL ONE (10:59)
--- NOTE | 2020-12-24 18:02 | Nuclear Medicine Report ---
PROCEDURE: Rest and pharmacological myocardial perfusion SPECT with gated imaging and ejection fraction INDICATIONS: HIST OF IA, PALPITATIONS RADIOPHARMACEUTICAL: 26.5 mCi Tc-99m Myoview IV at rest and 28.7 mCi Tc-99m Myoview IV at peak exerc ise. A [id number] was performed. TECHNIQUE: Radiopharmaceutical was injected at peak stress test, and also at rest. SPECT images wer e obtained. SPECT myocardial perfusion images were displayed in short axis, horizontal long axis, an d vertical long axis views. Gated images were reviewed using Auto[employer] software. COMPARISON: None available. FINDINGS: Raw data: There is good myocardial labeling by radiotracer. No significant motion artifacts. Lung- to-heart ratio is 0.44 (normal is less than 0.46 for tetrafosmin tracer). Left ventricle function: Gated images demonstrate normal left ventricle wall thickening. The apex i s mildly dyskinetic. There is no other segmental wall motion abnormality. No transient ischemic dila tion; TID is 1.23 (normal less than 1.30). The left ventricle resting end-diastolic volume is 216 mL . Left ventricle stress ejection fraction is 51%; normal values are above 45%. Myocardial perfusion: There is a large area of fixed decreased activity in the inferior wall, which is resolved on prone imaging, consistent with diaphragmatic attenuation artifact. There is normal dis tribution of activity in the left and right ventricular myocardium. No fixed or reversible perfusion defects. IMPRESSION: 1. Normal myocardial perfusion images. No perfusion defect to suggest myocardial ischemia or infarct. 2. [id number] left ventricular enlargement. The left ventricular ejection fraction is at the low normal range. 3. Please correlate with stress EKG result. PQRS ATTESTATIONS: Measure 322 - Is this imaging test primarily performed on a low-risk surgery patient for preoperative evaluation within 30 days preceding their low-risk non-cardiac surgery? Low-risk surgery is defined as cardiac or myocardial infarction less than 1%, including (but not limited to) endoscopic pr ocedures, superficial procedures, cataract surgery, and excisional breast surgery: Answer: No Measure 323 - Is this imaging test performed primarily for the monitoring of an asymptomatic patient who had percutaneous coronary intervention on the visit date or within 2 years of the visit date? An swer: No Measure 324 - Is this imaging test performed primarily for the initial detection and risk assessment on an asymptomatic, low coronary heart disease patient? Low CHD risk definition = clinicians should consider the maximum number of available patient factors used to estimate risk based on [place] (A TP III criteria), typically age, gender, diabetes, smoking status, and use of blood pressure medicati on, and integrate age appropriate estimates for missing elements, such as LDL or standard blood press ure. Answer: No Reviewed by: Ciera Lopez MD on 12/24/2020 5:01 PM [facility] Approved by: Ciera Lopez MD on 12/24/2020 5:01 PM [facility] Station ID: [id number]
== END 2020-12-23 11:06 | disposition home or self-care (01) ==
LOC: DI 11:05
PROVIDERS: ATTEND Internal Medicine Cardiovascular Disease
DX: I51.7 Cardiomegaly (principal); Z87.891 Personal history of nicotine dependence
CPT/HCPCS: 78452; 93017; A9500; J2060; J2785

== ENCOUNTER 2020-12-27 08:39 | Outpatient (CLI) | payer MEDICARE, OTHER | END 2020-12-27 08:40 | disposition home or self-care (01) | LOC: LAB 08:39 | PROVIDERS: ATTEND Internal Medicine Endocrinology, Diabetes & Metabolism | DX: E29.1 Testicular hypofunction (principal); Z53.9 Procedure and treatment not carried out, unspecified reason | CPT/HCPCS: 81599; 84153; 84403 ==

== ENCOUNTER 2020-12-31 10:28 | Outpatient (CLI) | payer MEDICARE, OTHER ==
[2020-12-31 10:43] LABS: HCT - HEMATOCRIT 46.5 % (42.0-52.0); HGB - HEMOGLOBIN 16.5 g/dL (14.0-18.0)
== END 2020-12-31 10:29 | disposition home or self-care (01) ==
LOC: LAB 10:28
PROVIDERS: ATTEND Internal Medicine Endocrinology, Diabetes & Metabolism
DX: E29.1 Testicular hypofunction (principal)
CPT/HCPCS: 36415; 84153; 84403; 85014; 85018

== ENCOUNTER 2021-02-11 14:45 | Outpatient (CLI) | payer MEDICARE, OTHER | END 2021-02-11 14:46 | disposition home or self-care (01) | LOC: COV 14:45 | PROVIDERS: ATTEND Internal Medicine Cardiovascular Disease | DX: Z01.812 Encounter for preprocedural laboratory examination (principal); Z20.822 Contact with and (suspected) exposure to COVID-19 ==

== ENCOUNTER 2021-04-04 10:44 | Outpatient (CLI) | payer MEDICARE, OTHER ==
[2021-04-04 11:16] LABS: BASOPHILS % (AUTO) 0.4 %; EOSINOPHILS # (AUTO) 0.2 10^3/uL (0.0-0.7); EOSINOPHILS % (AUTO) 3.2 %; HCT - HEMATOCRIT 37.9 % (42.0-52.0); HGB - HEMOGLOBIN 13.7 g/dL (14.0-18.0); LYMPHOCYTES # (AUTO) 1.2 10^3/uL (1.5-3.5); LYMPHOCYTES % (AUTO) 16.3 %; MEAN CORPUSCULAR HEMOGLOBIN 33.3 pg (27.0-31.0); MEAN CORPUSCULAR HGB CONC 36.1 g/dL (32.0-36.0); MEAN PLATELET VOLUME 9.1 fL (7.4-11.4); MONOCYTES # (AUTO) 0.5 10^3/uL (0.0-1.0); MONOCYTES % (AUTO) 6.3 %; NEUTROPHILS # (AUTO) 5.5 10^3/uL (1.5-6.6); NEUTROPHILS % (AUTO) 73.3 %; PLT - PLATELET COUNT 169 10^3/uL (130-450); RED BLOOD COUNT 4.12 10^6/uL (4.70-6.10); RED CELL DISTRIBUTION WIDTH 15.1 % (12.0-15.0); WHITE BLOOD COUNT 7.5 x10^3/uL (4.8-10.8)
[2021-04-04 11:22] LABS: INR 1.1 (0.8-1.2); PT - PROTHROMBIN TIME 12.5 secs (9.9-12.6)
[2021-04-04 11:27] LABS: CALCIUM 9.5 mg/dL (8.5-10.3); POTASSIUM 4.4 mmol/L (3.5-5.0)
== END 2021-04-04 10:45 | disposition home or self-care (01) ==
LOC: LAB 10:44
PROVIDERS: ATTEND Internal Medicine
DX: Z01.812 Encounter for preprocedural laboratory examination (principal); I47.2 Ventricular tachycardia; Z20.822 Contact with and (suspected) exposure to COVID-19
CPT/HCPCS: 36415; 80048; 85025; 85610; U0004

== ENCOUNTER 2021-04-04 16:43 | Outpatient (CLI) | payer MEDICARE, OTHER | END 2021-04-04 16:44 | disposition home or self-care (01) | LOC: COV 16:43 | PROVIDERS: ATTEND Internal Medicine | DX: Z01.812 Encounter for preprocedural laboratory examination (principal); Z20.822 Contact with and (suspected) exposure to COVID-19 ==

== ENCOUNTER 2021-04-28 10:55 | Emergency (ER) | payer MEDICARE, OTHER ==
[2021-04-28 11:53] LABS: BASOPHILS % (AUTO) 0.5 %; EOSINOPHILS # (AUTO) 0.4 10^3/uL (0.0-0.7); EOSINOPHILS % (AUTO) 4.9 %; LYMPHOCYTES # (AUTO) 1.3 10^3/uL (1.5-3.5); LYMPHOCYTES % (AUTO) 16.8 %; MEAN CORPUSCULAR HEMOGLOBIN 32.2 pg (27.0-31.0); MEAN CORPUSCULAR HGB CONC 35.3 g/dL (32.0-36.0); MEAN CORPUSCULAR VOLUME 91.2 fL (80.0-94.0); MEAN PLATELET VOLUME 9.3 fL (7.4-11.4); MONOCYTES # (AUTO) 0.5 10^3/uL (0.0-1.0); MONOCYTES % (AUTO) 6.4 %; NEUTROPHILS # (AUTO) 5.4 10^3/uL (1.5-6.6); NEUTROPHILS % (AUTO) 70.7 %; PLT - PLATELET COUNT 153 10^3/uL (130-450); RED BLOOD COUNT 3.73 10^6/uL (4.70-6.10); RED CELL DISTRIBUTION WIDTH 15.1 % (12.0-15.0); WHITE BLOOD COUNT 7.7 x10^3/uL (4.8-10.8)
[2021-04-28 12:00] LABS: ALBUMIN 3.7 g/dL (3.2-5.5); ALBUMIN/GLOBULIN RATIO 1.4 (1.0-2.2); CALCIUM 8.9 mg/dL (8.5-10.3); CREATININE 1.1 mg/dL (0.6-1.2); POTASSIUM 4.2 mmol/L (3.5-5.0); TOTAL PROTEIN 6.3 g/dL (6.7-8.2)
--- NOTE | 2021-04-28 12:09 | XRAY Report ---
PROCEDURE: Chest 1 View X-Ray INDICATIONS: Chest Pain TECHNIQUE: One view of the chest was acquired. COMPARISON: Chest radiographs 05/17/2018 FINDINGS: Surgical changes and devices: A cardiac pacemaker is seen with pulse generator in the left chest. Lungs and pleura: No pleural effusions or pneumothorax. The central pulmonary vasculature is promine nt. Mediastinum: Mediastinal contours appear normal. Heart size is mildly enlarged. Bones and chest wall: No suspicious bony lesions. Overlying soft tissues appear unremarkable. A he aled right posterior rib fracture is noted. IMPRESSION: Mild cardiomegaly and prominence of the central pulmonary vasculature is suspicious for mild CHF. Reviewed by: Moncho Rivera MD on 04/28/2021 12:08 PM [facility] Approved by: Moncho Rivera MD on 04/28/2021 12:08 PM [facility] Station ID: [id number]
[2021-04-28] MEDS ORDERED: FUROSEMIDE 20 MG TABLET PO STA (12:48)
--- NOTE | 2021-04-28 13:25 | ED Physician Documentation ---
PD HPI DYSPNEA - Stated complaint Stated Complaint: SOA - Chief complaint Chief Complaint: Resp - History obtained from History obtained from: Patient - Additional information Additional information: Patient comes emergency department chief complaint of increasing dyspnea, especially when he lays flat. He states that sometimes he feels a gurgling sensation in his chest. He has been noticing the symptoms over the last couple of weeks and had a recent pacer/defibrillator placement. 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 However, when patient's symptoms were worsening, he called the substation manager office again and was told to come here for further evaluation. Patient denies any chest pain. No fever or chills. No cough. He denies any swelling in his lower extremities. He is vaccinated for Covid and denies sick contacts. No other complaints at this time. He states that he feels fairly well just sitting in the bed. Review of Systems Ten Systems: 10 systems reviewed and negative Constitutional: reports: Reviewed and negative Eyes: reports: Reviewed and negative Ears: reports: Reviewed and negative Nose: reports: Reviewed and negative Throat: reports: Reviewed and negative Cardiac: reports: Reviewed and negative Respiratory: reports: Dyspnea GI: reports: Reviewed and negative : reports: Reviewed and negative Skin: reports: Reviewed and negative Musculoskeletal: reports: Reviewed and negative Neurologic: reports: Reviewed and negative Psychiatric: reports: Reviewed and negative Endocrine: reports: Reviewed and negative Immunocompromised: reports: Reviewed and negative PD PAST MEDICAL HISTORY - Past Medical History Cardiovascular: High cholesterol, Coronary artery disease, Deep vein thrombosis, [place] Respiratory: Pneumonia, Sleep apnea, CPAP use Neuro: Headaches Endocrine/Autoimmune: None GI: Colon polyps, Hemorrhoids, Other : None HEENT: Chronic vision loss Psych: None, Claustrophobia Musculoskeletal: Osteoarthritis Derm: Other - Past Surgical History Past Surgical History: Yes General: Colonoscopy, Other Ortho: Knee replacement Cardiovascular: AICD HEENT: Cataracts, Tonsil/Adenoidectomy - Present Medications Home Medications: Ambulatory Orders Medication Instructions Recorded Confirmed Hydrocodone/Acetaminophen 1 each PO DAILY PRN 10/18/12 12/10/20 [Hydrocodon-Acetaminophn 10-325] Morphine Sulfate [Ms Contin] 15 mg PO TID 03/30/14 12/10/20 Testosterone Cypionate 140 mg IM ONCE 03/30/14 12/10/20 Aspirin [Aspir 81] 81 mg PO DAILY 07/03/14 12/10/20 Atorvastatin [Lipitor] 20 mg PO DAILY 04/19/18 12/10/20 Losartan [Cozaar] 50 mg PO DAILY 04/19/18 12/10/20 Cholecalciferol (Vitamin D3) 1 tab ORAL DAILY 10/18/18 12/10/20 [Vitamin D3] Melatonin 1 mg PO QPM 10/17/19 12/10/20 Furosemide [Lasix] 20 mg PO DAILY #30 tablet 04/28/21 - Allergies Allergies/Adverse Reactions: Allergies Allergy/AdvReac Type Severity Reaction Status Date / Time hydromorphone HCl * AdvReac Intermediate Respiratory Verified 04/28/21 11:25 [From Dilaudid] - Social History Does the pt smoke?: Yes Smoking Status: Current every day smoker Does the pt drink ETOH?: No Does the pt have substance abuse?: No - Immunizations Immunizations are current?: Yes - POLST Patient has POLST: No PD ED PE NORMAL - Vitals Vital signs reviewed: Yes - General General: Alert and oriented X 3, No acute distress, Well developed/nourished - HEENT HEENT: Atraumatic, PERRL, EOMI, Moist mucous membranes - Neck Neck: Supple, no meningeal sign - Cardiac Cardiac: RRR, No murmur, Strong equal pulses - Respiratory Respiratory: No respiratory distress, Clear bilaterally - Abdomen Abdomen: Soft, Non tender, Non distended - Derm Derm: Normal color, Warm and dry, No rash - Extremities Extremities: No deformity, Other (1+ pitting edema bilaterally.) - Neuro Neuro: Alert and oriented X 3, history instructor 2-12 intact, Normal speech - Psych Psych: Normal mood, Normal affect Results - Vitals Vitals: Oxygen O2 Source Room air - EKG (time done) 1154 Rate: Rate (enter#) (72) Rhythm: NSR [place]: Normal Intervals: Normal SD QRS: Normal Ischemia: Normal ST segments Compare to prior EKG: Old EKG unavailable Computer interpretation: Agree with computer - Labs Labs: Laboratory Tests 04/28/21 04/28/21 04/28/21 11:39 11:39 11:39 WBC 7.7 RBC 3.73 L Hgb 12.0 L Hct 34.0 L MCV 91.2 MCH 32.2 H MCHC 35.3 RDW 15.1 H Plt Count 153 MPV 9.3 Neut # (Auto) 5.4 Lymph # (Auto) 1.3 L [place] # (Auto) 0.5 Eos # (Auto) 0.4 Baso # (Auto) 0.0 Absolute Nucleated RBC 0.00 Nucleated RBC % 0.0 Sodium 134 L Potassium 4.2 Chloride 101 Carbon Dioxide 24 Anion Gap 9.0 BUN 23 H Creatinine 1.1 Estimated GFR (MDRD) 66 L Glucose 202 H Calcium 8.9 Total Bilirubin 1.0 AST 28 ALT 23 Alkaline Phosphatase 62 Troponin I High Sens 5.2 B-Natriuretic Peptide Total Protein 6.3 L Albumin 3.7 Globulin 2.6 Albumin/Globulin Ratio 1.4 Lipase 27 04/28/21 11:39 WBC RBC Hgb Hct MCV MCH MCHC RDW Plt Count MPV Neut # (Auto) Lymph # (Auto) [place] # (Auto) Eos # (Auto) Baso # (Auto) Absolute Nucleated RBC Nucleated RBC % Sodium Potassium Chloride Carbon Dioxide Anion Gap BUN Creatinine Estimated GFR (MDRD) Glucose Calcium Total Bilirubin AST ALT Alkaline Phosphatase Troponin I High Sens B-Natriuretic Peptide 30 Total Protein Albumin Globulin Albumin/Globulin Ratio Lipase - Rads (name of study) Chest x-ray Radiology: Final report received, EMP read indepedently, See rad report (Borderline cardiomegaly and appearance of mild CHF.) PD MEDICAL DECISION MAKING - ED course Complexity details: reviewed results, re-evaluated patient, considered differential, d/w patient ED course: The patient was worked up with laboratory studies found to have a normal troponin and normal BNP. However, his chest x-ray was read as showing symptoms findings consistent with mild CHF. Additionally, I have reviewed the patient's past records and found he had a myocardial perfusion scan in November which showed borderline EF and no evidence of ischemia. At this point in time, I felt it would benefit the patient to have at least a temporary course of Lasix. We have discussed that he needs to call his substation manager office and follow-up as soon as possible for reevaluation. The patient's vital signs here have been unremarkable and overall he looks fairly good, at this point in time, I do not feel he needs admission to the hospital. However, we have discussed the usual indications for return. Departure - Departure Disposition: Home, Self Care Clinical Impression: Pulmonary edema Qualifiers: Chronicity: acute Qualified Code(s): J81.0 - Acute pulmonary edema Congestive heart failure Qualifiers: Heart failure type: unspecified Heart failure chronicity: acute on chronic Qualified Code(s): I50.9 - Heart failure, unspecified Condition: Stable Instructions: ED CHF General Prescriptions: Furosemide [Lasix] 20 mg PO DAILY #30 tablet Comments: Your labs overall look good. Your EKG does not show any concerning findings. Your chest x-ray does show some enlargement of your heart and a little bit of fluid in your lungs, which would be consistent with some mild chronic congestive heart failure. Reviewing your heart tests from the summer, it appears that your heart function was on the very low edge of normal, and so it may be that since having this procedure, you has had a temporary decline in the strength of your heart pump function. For now, we will put you on a low-dose of diuretic medicine, or "water pill" to help get the fluid out of your legs and lungs. You should call your substation manager office first thing tomorrow to make the soonest possible appointment for follow-up on this emergency department visit. There is no evidence of a more serious cause of your shortness of breath. If you are having trouble breathing when you lay back, then please try sleeping with your upper body up a little, either in a recliner or on a few pillows, until the water pills kick in and you get feeling better. Discharge Date/Time: 04/28/21 14:21
[2021-04-28 14:21] VITALS: BP 116/58
== END 2021-04-28 14:21 | disposition home or self-care (01) ==
LOC: ED 10:55
DX: I50.9 Heart failure, unspecified (principal); J18.0 Bronchopneumonia, unspecified organism; Z95.0 Presence of cardiac pacemaker; Z86.718 Personal history of other venous thrombosis and embolism; Z79.82 Long term (current) use of aspirin; F17.200 Nicotine dependence, unspecified, uncomplicated
CPT/HCPCS: 36415; 71045; 80053; 83690; 83880; 84484; 85025; 93005; 99284; A9270

== ENCOUNTER 2021-05-02 18:45 | Inpatient (IN) | payer MEDICARE, OTHER ==
[2021-05-02 19:15] LABS: BASOPHILS # (AUTO) 0.1 10^3/uL (0.0-0.1); BASOPHILS % (AUTO) 0.3 %; EOSINOPHILS # (AUTO) 0.3 10^3/uL (0.0-0.7); EOSINOPHILS % (AUTO) 1.6 %; HCT - HEMATOCRIT 39.9 % (42.0-52.0); HGB - HEMOGLOBIN 13.9 g/dL (14.0-18.0); LYMPHOCYTES # (AUTO) 0.8 10^3/uL (1.5-3.5); LYMPHOCYTES % (AUTO) 4.6 %; MEAN CORPUSCULAR HEMOGLOBIN 31.6 pg (27.0-31.0); MEAN CORPUSCULAR HGB CONC 34.8 g/dL (32.0-36.0); MEAN CORPUSCULAR VOLUME 90.7 fL (80.0-94.0); MEAN PLATELET VOLUME 8.8 fL (7.4-11.4); MONOCYTES # (AUTO) 0.8 10^3/uL (0.0-1.0); MONOCYTES % (AUTO) 4.8 %; NEUTROPHILS # (AUTO) 14.4 10^3/uL (1.5-6.6); NEUTROPHILS % (AUTO) 87.7 %; PLT - PLATELET COUNT 99 10^3/uL (130-450); RED CELL DISTRIBUTION WIDTH 15.2 % (12.0-15.0); WHITE BLOOD COUNT 16.5 x10^3/uL (4.8-10.8)
[2021-05-02] MEDS ORDERED: ACETAMINOPHEN 325 MG TABLET PO STA (19:23)
--- NOTE | 2021-05-02 19:24 | ED Physician Documentation ---
History of Present Illness - Stated complaint Stated Complaint: RIGHT LEG PX, SOA - Chief complaint Chief Complaint: General - History obtained from History obtained from: Patient - History of Present Illness Timing: Today - Additonal information Additional information: On my HPI, patient has great difficulty answering questions. Asked why he came to ER, he eventually says "I don't feel well", and he then eventually says "breathing", acknowledges he is having difficulty breathing when I ask if this is what he means. He was T+R 4 days ago from this ED for dyspnea. He had a PPM placed 04/12 at [facility]. Review of Systems Unable to obtain: Other (most ROS questions he is unable to answer (mostly "I don't know", or seems to be thinking about the question without providing an answer)) Constitutional: reports: Fever PD PAST MEDICAL HISTORY - Past Medical History Cardiovascular: High cholesterol, Coronary artery disease, Deep vein thrombosis, [place] Respiratory: Pneumonia, Sleep apnea, CPAP use Neuro: Headaches Endocrine/Autoimmune: None GI: Colon polyps, Hemorrhoids, Other : None HEENT: Chronic vision loss Psych: None, Claustrophobia Musculoskeletal: Osteoarthritis Derm: Other - Past Surgical History Past Surgical History: Yes General: Colonoscopy, Other Ortho: Knee replacement Cardiovascular: AICD HEENT: Cataracts, Tonsil/Adenoidectomy - Present Medications Home Medications: Ambulatory Orders Medication Instructions Recorded Confirmed Hydrocodone/Acetaminophen 1 each PO DAILY PRN 10/18/12 12/10/20 [Hydrocodon-Acetaminophn 10-325] Morphine Sulfate [Ms Contin] 15 mg PO TID 03/30/14 12/10/20 Testosterone Cypionate 140 mg IM ONCE 03/30/14 12/10/20 Aspirin [Aspir 81] 81 mg PO DAILY 07/03/14 12/10/20 Atorvastatin [Lipitor] 20 mg PO DAILY 04/19/18 12/10/20 Losartan [Cozaar] 50 mg PO DAILY 04/19/18 12/10/20 Cholecalciferol (Vitamin D3) 1 tab ORAL DAILY 10/18/18 12/10/20 [Vitamin D3] Melatonin 1 mg PO QPM 10/17/19 12/10/20 Furosemide [Lasix] 20 mg PO DAILY #30 tablet 04/28/21 - Allergies Allergies/Adverse Reactions: Allergies Allergy/AdvReac Type Severity Reaction Status Date / Time hydromorphone HCl * AdvReac Intermediate Respiratory Verified 05/02/21 18:49 [From Dilaudid] - Social History Does the pt smoke?: Yes Smoking Status: Current every day smoker Does the pt drink ETOH?: No Does the pt have substance abuse?: No - Immunizations Immunizations are current?: Yes - POLST Patient has POLST: No PD ED PE NORMAL - Vitals Vital signs reviewed: Yes - General General: Other (obese; mild tachypnea. he is AAOx3 (can answer orientation questions), but most other answers are without useful content as noted above) - HEENT HEENT: PERRL, EOMI, Other (pasty mucous membranes) - Neck Neck: Supple, no meningeal sign - Cardiac Cardiac: RRR, No murmur, Other (left chest wall PPM site is c/d/i without erythema or swelling) - Abdomen Abdomen: Soft, Non tender, Non distended - Derm Derm: Other (BLE venous stasis changes) PD ED PE EXPANDED - Respiratory Respiratory: Rhonchi (scattered bilateral rhonchi). No: Wheezing - Extremities Extremities: Pedal edema bilateral Results - Vitals Vitals: Vital Signs - 24 hr 05/02/21 05/02/21 05/02/21 18:49 19:23 19:57 Temperature 39.4 C H Heart Rate 100 99 96 Respiratory 24 31 H 34 H Rate Blood Pressure 142/61 H 116/68 118/68 O2 Saturation 94 91 L 87 L 05/02/21 05/02/21 19:58 20:03 Temperature Heart Rate 97 Respiratory 33 H 31 H Rate Blood Pressure 136/60 H O2 Saturation 93 93 Oxygen O2 Source Nasal cannula - Labs Labs: Microbiology 05/02/21 19:08 Blood Culture (PCR) - Final Blood - Left Arm 05/02/21 19:08 Blood Culture - Preliminary Blood - Right Hand 05/02/21 19:08 Blood Culture - Preliminary Blood - Left Arm Laboratory Tests 05/02/21 05/02/21 05/02/21 19:08 19:08 19:08 WBC 16.5 H RBC 4.40 L Hgb 13.9 L Hct 39.9 L MCV 90.7 MCH 31.6 H MCHC 34.8 RDW 15.2 H Plt Count 99 L MPV 8.8 Neut # (Auto) 14.4 H Lymph # (Auto) 0.8 L Roosevelt # (Auto) 0.8 Eos # (Auto) 0.3 Baso # (Auto) 0.1 Absolute Nucleated RBC 0.00 Nucleated RBC % 0.0 Sodium 129 L Potassium 3.7 Chloride 93 L Carbon Dioxide 23 Anion Gap 13.0 BUN 26 H Creatinine 1.7 H Estimated GFR (MDRD) 40 L Glucose 283 H Lactic Acid 4.7 H* Calcium 9.3 Phosphorus Magnesium Total Bilirubin 2.2 H AST 50 H ALT 31 Alkaline Phosphatase 58 Troponin I High Sens C-Reactive Protein B-Natriuretic Peptide Total Protein 7.3 Albumin 4.2 Globulin 3.1 Albumin/Globulin Ratio 1.4 Lipase 34 Urine Color Urine Clarity Urine pH Ur Specific [place] Urine Protein Urine Glucose (UA) Urine Ketones Urine Occult Blood Urine Nitrite Urine Bilirubin Urine Urobilinogen Ur Leukocyte Esterase Urine RBC Urine WBC Ur Squamous Epith Cells Urine Bacteria Urine Casts Urine Culture Comments Nasal Adenovirus (PCR) Nasal B. parapertussis DNA (PCR) Nasal Coronavir 229E PCR Nasal Coronavir HKU1 PCR Nasal Coronavir NL63 PCR Nasal Coronavir OC43 PCR Nasal Enterovir/Rhinovir PCR Nasal Influenza B PCR Nasal Influenza A PCR Nasal Parainfluen 1 PCR Nasal Parainfluen 2 PCR Nasal Parainfluen 3 PCR Nasal Parainfluen 4 PCR Nasal RSV (PCR) Nasal B.pertussis DNA PCR Nasal C.pneumoniae (PCR) Kyle Human Metapneumo PCR Nasal M.pneumoniae (PCR) Nasal SARS-CoV-2 (PCR) 05/02/21 05/02/21 05/02/21 19:08 19:08 19:08 WBC RBC Hgb Hct MCV MCH MCHC RDW Plt Count MPV Neut # (Auto) Lymph # (Auto) Roosevelt # (Auto) Eos # (Auto) Baso # (Auto) Absolute Nucleated RBC Nucleated RBC % Sodium Potassium Chloride Carbon Dioxide Anion Gap BUN Creatinine Estimated GFR (MDRD) Glucose Lactic Acid Calcium Phosphorus 2.7 Magnesium 1.9 Total Bilirubin AST ALT Alkaline Phosphatase Troponin I High Sens C-Reactive Protein 21.3 H B-Natriuretic Peptide 117 H Total Protein Albumin Globulin Albumin/Globulin Ratio Lipase Urine Color Urine Clarity Urine pH Ur Specific [place] Urine Protein Urine Glucose (UA) Urine Ketones Urine Occult Blood Urine Nitrite Urine Bilirubin Urine Urobilinogen Ur Leukocyte Esterase Urine RBC Urine WBC Ur Squamous Epith Cells Urine Bacteria Urine Casts Urine Culture Comments Nasal Adenovirus (PCR) Nasal B. parapertussis DNA (PCR) Nasal Coronavir 229E PCR Nasal Coronavir HKU1 PCR Nasal Coronavir NL63 PCR Nasal Coronavir OC43 PCR Nasal Enterovir/Rhinovir PCR Nasal Influenza B PCR Nasal Influenza A PCR Nasal Parainfluen 1 PCR Nasal Parainfluen 2 PCR Nasal Parainfluen 3 PCR Nasal Parainfluen 4 PCR Nasal RSV (PCR) Nasal B.pertussis DNA PCR Nasal C.pneumoniae (PCR) Kyle Human Metapneumo PCR Nasal M.pneumoniae (PCR) Nasal SARS-CoV-2 (PCR) 05/02/21 05/02/21 05/02/21 19:08 19:45 19:58 WBC RBC Hgb Hct MCV MCH MCHC RDW Plt Count MPV Neut # (Auto) Lymph # (Auto) Roosevelt # (Auto) Eos # (Auto) Baso # (Auto) Absolute Nucleated RBC Nucleated RBC % Sodium Potassium Chloride Carbon Dioxide Anion Gap BUN Creatinine Estimated GFR (MDRD) Glucose Lactic Acid Calcium Phosphorus Magnesium Total Bilirubin AST ALT Alkaline Phosphatase Troponin I High Sens 56.9 H* C-Reactive Protein B-Natriuretic Peptide Total Protein Albumin Globulin Albumin/Globulin Ratio Lipase Urine Color YELLOW Urine Clarity CLEAR Urine pH 5.5 Ur Specific [place] 1.025 Urine Protein TRACE Urine Glucose (UA) 250 H Urine Ketones NEGATIVE Urine Occult Blood SMALL H Urine Nitrite NEGATIVE Urine Bilirubin NEGATIVE Urine Urobilinogen 0.2 (NORMAL) Ur Leukocyte Esterase NEGATIVE Urine RBC 6-10 H Urine WBC 0-3 Ur Squamous Epith Cells RARE Squamous Urine Bacteria Rare Urine Casts 3-5 Granular Casts Urine Culture Comments NOT INDICATED Nasal Adenovirus (PCR) NOT DETECTED Nasal B. parapertussis DNA (PCR) NOT DETECTED Nasal Coronavir 229E PCR NOT DETECTED Nasal Coronavir HKU1 PCR NOT DETECTED Nasal Coronavir NL63 PCR NOT DETECTED Nasal Coronavir OC43 PCR NOT DETECTED Nasal Enterovir/Rhinovir PCR NOT DETECTED Nasal Influenza B PCR NOT DETECTED Nasal Influenza A PCR NOT DETECTED Nasal Parainfluen 1 PCR NOT DETECTED Nasal Parainfluen 2 PCR NOT DETECTED Nasal Parainfluen 3 PCR NOT DETECTED Nasal Parainfluen 4 PCR NOT DETECTED Nasal RSV (PCR) NOT DETECTED Nasal B.pertussis DNA PCR NOT DETECTED Nasal C.pneumoniae (PCR) NOT DETECTED Kyle Human Metapneumo PCR NOT DETECTED Nasal M.pneumoniae (PCR) NOT DETECTED Nasal SARS-CoV-2 (PCR) NOT DETECTED - Rads (name of study) chest xray Radiology: Prelim report reviewed, See rad report PD MEDICAL DECISION MAKING - ED course Complexity details: reviewed old records, reviewed results, re-evaluated patient, considered differential, d/w patient ED course: Presents with fever, AMS (which improved later in ED stay once he defervesced after tylenol). He was normotensive during stay although tachypneic, tachycardic, and pulse ox low 90s. Leukocytosis with WBC over 16k, lactate 4.7, elevated bilirubin over 2, and creatinine 1.7 (was normal 04/28). He is given vancomycin, cefepime, and flagyl, as well as 1 liter bolus NS. After lactate returned over 4, an addition 3 liters NS is ordered to approximate 30 cc/kg bolus (his legs are edematous and he takes lasix, so fluid overload is a concern). D/W Dr. Alfred who evaluated patient in ED and will admit. Prior to patient being transferred to the floor, he had increasingly frequent periods of ventricular tachycardia. He was asymptomatic with these episodes and had strong radial pulse, although the rate of the palpable pulse was lower than the 140s-160s rate on the monitor, and pulse was irregular (but strong when felt). He would spontaneously return to NSR. I asked him many times during the episodes about symptoms and he denies symptoms, specifically chest pain, palpitations, lightheadedness. I discussed this with Dr. Kidd (signal circuit designer rodent control worker at [facility]); he recommends amiodarone (150mg IV over 10 minutes followed by 1mg/min for 6 hours). He says patient is still appropriate for admission to [facility] Departure - Departure Disposition: 66 [facility] DC/Xfer Clinical Impression: Ventricular tachycardia (paroxysmal) Sepsis Qualifiers: Sepsis type: sepsis due to unspecified organism Sepsis acute organ dysfunction status: unspecified Qualified Code(s): A41.9 - Sepsis, unspecified organism Condition: Fair Discharge Date/Time: 05/02/21 22:34
[2021-05-02 19:27] LABS: ALBUMIN 4.2 g/dL (3.2-5.5); ALBUMIN/GLOBULIN RATIO 1.4 (1.0-2.2); BILIRUBIN,TOTAL 2.2 mg/dL (0.2-1.0); CALCIUM 9.3 mg/dL (8.5-10.3); CREATININE 1.7 mg/dL (0.6-1.2); POTASSIUM 3.7 mmol/L (3.5-5.0); TOTAL PROTEIN 7.3 g/dL (6.7-8.2)
[2021-05-02 19:36] LABS: LACTIC ACID, VENOUS 4.7 mmol/L (0.5-2.2)
[2021-05-02] MEDS ORDERED: metroNIDAZOLE 500 MG/100 ML 500 MG/100 ML BAG IV STA (19:43)
[2021-05-02] MEDS ORDERED: CEFEPIME 2 GM in SODIUM CHLORIDE 0.9% MINIBAG 100 ML IV STA (19:43)
[2021-05-02] MEDS ORDERED: VANCOMYCIN INJ 3 GM in SODIUM CHLORIDE 0.9% 500 ML IV STA (19:43)
[2021-05-02] MEDS ORDERED: SODIUM CHLORIDE 0.9% 1,000 ML IV STA (19:57)
[2021-05-02 20:00] LABS: BILIRUBIN,URINE NEGATIVE (NEGATIVE); GLUCOSE, URINE (UA) 250 mg/dL (NEGATIVE); KETONES,URINE (UA) NEGATIVE (NEGATIVE); LEUKOCYTE ESTERASE, URINE NEGATIVE (NEGATIVE); NITRITE,URINE NEGATIVE (NEGATIVE); OCCULT BLOOD,URINE SMALL (NEGATIVE); PH,URINE 5.5 PH (5.0-7.5); PROTEIN,URINE TRACE mg/dL (NEGATIVE); UROBILINOGEN,URINE 0.2 (NORMAL) E.U./dL (NORMAL)
[2021-05-02] MEDS ORDERED: VANCOMYCIN 1 GM VIAL ONE (20:02)
--- NOTE | 2021-05-02 20:02 | XRAY Report ---
PROCEDURE: Chest 1 View X-Ray INDICATIONS: fever, dyspnea COMMENTS: Pt unable to provide history, notably unable to speak full sentences due to SOA. Pt was treated 04/28/21 for SOA at [facility], hx of CAD and DVT PRIORS: 04/28/21, , 09/14/17 TECHNIQUE: One view of the chest was acquired. COMPARISON: 04/28/2021 FINDINGS: Surgical changes and devices: Cardiac pacer is seen in the left chest wall with intact leads. Lungs and pleura: No pleural effusions or pneumothorax. Lungs are clear. Mediastinum: Mediastinal contours appear normal. Heart size is normal. Bones and chest wall: No suspicious bony lesions. Overlying soft tissues appear unremarkable. IMPRESSION: No acute cardiopulmonary abnormality. Reviewed by: Puneet Steen on 05/02/2021 8:01 PM PST Approved by: Puneet Steen on 05/02/2021 8:01 PM [facility] Station ID: [email or web address]
[2021-05-02] MEDS ORDERED: WATER FOR INJECTION,STERILE 20 ML MC ONE (20:03)
[2021-05-02 20:04] LABS: CLARITY,URINE CLEAR (CLEAR)
[2021-05-02 20:17] LABS: WBC,URINE 0-3 /HPF (0-3)
[2021-05-02 20:18] LABS: BACTERIA,URINE Rare /HPF (None Seen); SQUAMOUS EPITHELIAL CELL,UR RARE Squamous (<= Few)
[2021-05-02] MEDS ORDERED: ONDANSETRON 4 MG/2 ML VIAL IVP PRN (20:26)
[2021-05-02] MEDS ORDERED: HYDROmorphone 0.5 MG/0.5 ML SYRINGE IVP PRN (20:26)
[2021-05-02] MEDS ORDERED: SODIUM CHLORIDE 0.9% 3,000 ML IV STA ×2 (20:34→20:37)
--- NOTE | 2021-05-02 20:41 | HISTORY & PHYSICAL EXAMINATION ---
Chief Complaint - Chief Complaint Chief Complaint: fever, dyspnea, right leg pain History - Past Medical History Cardiovascular: reports: High cholesterol, Coronary artery disease, Deep vein thrombosis, [place] Respiratory: reports: Pneumonia, Sleep apnea, CPAP use Neuro: reports: Headaches Endocrine/Autoimmune: reports: None GI: reports: Colon polyps, Hemorrhoids, Other : reports: None HEENT: reports: Chronic vision loss Psych: reports: None, Claustrophobia Musculoskeletal: reports: Osteoarthritis Derm: reports: Other MRSA Hx?: No - Past Surgical History General: reports: Colonoscopy, Other Ortho: reports: Knee replacement Cardiovascular: reports: AICD HEENT: reports: Cataracts, Tonsil/Adenoidectomy - POLST Patient has POLST: No Meds/Allgy - Home Medications Home Medications: Ambulatory Orders Medication Instructions Recorded Confirmed Hydrocodone/Acetaminophen 1 each PO DAILY PRN 10/18/12 12/10/20 [Hydrocodon-Acetaminophn 10-325] Morphine Sulfate [Ms Contin] 15 mg PO TID 03/30/14 12/10/20 Testosterone Cypionate 140 mg IM ONCE 03/30/14 12/10/20 Aspirin [Aspir 81] 81 mg PO DAILY 07/03/14 12/10/20 Atorvastatin [Lipitor] 20 mg PO DAILY 04/19/18 12/10/20 Losartan [Cozaar] 50 mg PO DAILY 04/19/18 12/10/20 Cholecalciferol (Vitamin D3) 1 tab ORAL DAILY 10/18/18 12/10/20 [Vitamin D3] Melatonin 1 mg PO QPM 10/17/19 12/10/20 Furosemide [Lasix] 20 mg PO DAILY #30 tablet 04/28/21 - Allergies Allergies/Adverse Reactions: Allergies Allergy/AdvReac Type Severity Reaction Status Date / Time hydromorphone HCl * AdvReac Intermediate Respiratory Verified 05/02/21 18:49 [From Dilaudid] Exam - Vital Signs Vital Signs: Vital Signs x48h Temp Pulse Resp BP Pulse Ox 05/02/21 20:35 37.7 C 05/02/21 20:30 97 26 H 137/59 H 92 05/02/21 20:03 97 31 H 136/60 H 93 05/02/21 19:58 33 H 93 05/02/21 19:57 96 34 H 118/68 87 L 05/02/21 19:23 99 31 H 116/68 91 L 05/02/21 18:49 39.4 C H 100 24 142/61 H 94 Conclusion/Plan - Lab Results Fish Bones: 05/02/21 19:08 05/02/21 19:08
--- NOTE | 2021-05-02 20:45 | HISTORY & PHYSICAL EXAMINATION ---
Chief Complaint - Chief Complaint Chief Complaint: fever, dyspnea, right leg pain History of Present Illness - Admitted From Admitted From:: [facility] ED - History Obtained From Records Reviewed: yes History obtained from: patient - History of Present Illness HPI Comment/Other: Patient is a 70-year-old male with history of hyperlipidemia, coronary disease, DVT, chronic leg pain and recent AICD placement who presented to the ED with complaint of dyspnea. He reported that this has been going on for the past week and progressively worse. He denied chest pain or abdominal pain, nausea, vomiting. He has significant right leg pain. In the ED he was noted to have a fever with a temperature of 39.4 C. Lactic acid was 4.7 and a white blood cell count of 16.5. At the time of initial exam his history was very limited because the patient was somewhat confused. This was likely related to his fever. He was presented for admission for further treatment. Chest x-ray and urinalysis were unremarkable. History - Past Medical History Cardiovascular: reports: High cholesterol, Coronary artery disease, Deep vein thrombosis, [place] Respiratory: reports: Pneumonia, Sleep apnea, CPAP use Neuro: reports: Headaches Endocrine/Autoimmune: reports: None GI: reports: Colon polyps, Hemorrhoids, Other : reports: None HEENT: reports: Chronic vision loss Psych: reports: None, Claustrophobia Musculoskeletal: reports: Osteoarthritis Derm: reports: Other MRSA Hx?: No - Past Surgical History General: reports: Colonoscopy, Other Ortho: reports: Knee replacement Cardiovascular: reports: AICD HEENT: reports: Cataracts, Tonsil/Adenoidectomy - Family & Social History Family History Comment/Other: Patient denies any significant family history Social History Notes: He lives at home with his . he quite smoking 3 weeks ago - POLST Patient has POLST: No POLST Status: Full Code Meds/Allgy - Home Medications Home Medications: Ambulatory Orders Medication Instructions Recorded Confirmed Hydrocodone/Acetaminophen 1 each PO DAILY PRN 10/18/12 12/10/20 [Hydrocodon-Acetaminophn 10-325] Morphine Sulfate [Ms Contin] 15 mg PO TID 03/30/14 12/10/20 Testosterone Cypionate 140 mg IM ONCE 03/30/14 12/10/20 Aspirin [Aspir 81] 81 mg PO DAILY 07/03/14 12/10/20 Atorvastatin [Lipitor] 20 mg PO DAILY 04/19/18 12/10/20 Losartan [Cozaar] 50 mg PO DAILY 04/19/18 12/10/20 Cholecalciferol (Vitamin D3) 1 tab ORAL DAILY 10/18/18 12/10/20 [Vitamin D3] Melatonin 1 mg PO QPM 10/17/19 12/10/20 Furosemide [Lasix] 20 mg PO DAILY #30 tablet 04/28/21 - Allergies Allergies/Adverse Reactions: Allergies Allergy/AdvReac Type Severity Reaction Status Date / Time hydromorphone HCl * AdvReac Intermediate Respiratory Verified 05/02/21 18:49 [From Dilaudid] Review of Systems - Constitutional Constitutional: reports: Fever. denies: Fatigue - Eyes Eyes: denies: Pain - Ears, Nose & Throat Ears, Nose & Throat: denies: Ear pain, Sore throat - Cardiovascular Cariovascular: reports: Irregular heart rate, Palpitations. denies: Chest pain, Edema - Respiratory Respiratory: reports: SOB at rest. denies: Wheezing - Gastrointestinal Gastrointestinal: denies: Abdominal pain, Abdominal distention, Nausea, Vomiting - Genitourinary Genitourinary: denies: Dysuria, Frequency, Urgency, Hematuria - Musculoskeletal Musculoskeletal: denies: Muscle pain, Muscle aches - Integumentary Integumentary: denies: Rash, Pruritis - Neurological Neurological: denies: Headache - Psychiatric Psychiatric: denies: Depression, Anxiety - Endocrine Endocrine: denies: Polyuria, Polydypsia - Hematologic/Lymphatic Hematologic/Lymphatic: denies: Anemia, Bruising Prior Level of Functionality: Patient is normally independent of activities of daily living. He gets around using a cane. Exam - Vital Signs Vital Signs: Vital Signs x48h Temp Pulse Resp BP Pulse Ox 05/02/21 20:35 37.7 C 05/02/21 20:30 97 26 H 137/59 H 92 05/02/21 20:03 97 31 H 136/60 H 93 05/02/21 19:58 33 H 93 05/02/21 19:57 96 34 H 118/68 87 L 05/02/21 19:23 99 31 H 116/68 91 L 05/02/21 18:49 39.4 C H 100 24 142/61 H 94 - Physical Exam General Appearance: positive: Alert, Moderate distress Eyes Bilateral: positive: PERRL, EOMI ENT: positive: Dry mucous membranes Neck: positive: No JVD, Trachea midline Respiratory: positive: Chest non-tender, No respiratory distress, Breath sounds nml. negative: Wheezes, Rales, Rhonchi Cardiovascular: positive: No murmur, Tachycardia Abdomen: positive: Non-tender, No organomegaly, Nml bowel sounds, No distention Back: positive: Nml inspection Skin: positive: Other (skin tattooing on lower extremities. Likely from v enostasis. Right lower extremity erythematous.. Site of AICD placement in left pectoral area appreciable. No redness or drainage noted) Extremities: positive: Other (Right leg painful to touch and warm. Ulcer on the ball of right foot) Neurologic/Psychiatric: positive: Disoriented to person, Disoriented to time, Other (intermittent mild confusion) Sepsis Event Note (H) - Evaluation Current Stage of Sepsis: Sepsis Possible source of Sepsis: positive: Skin/soft tissue - Sepsis Criteria Sepsis Criteria: Recorded Temperature greater than 38.3C or Less than 36C, Recorded Heart Rate greater than 90 bpm, Recorded Respiratory Rate greater than 20, Respiratory: Increasing oxygen requirements, WBC count greater than 12,000 or less than 4000, Metabolic: lactate > 2 mmol/L Conclusion/Plan - Problem List (1) Sepsis Conclusion/Plan: Etiology undetermined Suspect 2/2 Right lower extremity cellulitis Will need to rule out osteomyelitis Patient has an ulcer on the ball of the right foot WBC 16.5, lactic acid 4.7, Temp 39.4 degree celsius Patient received a total of 4L of normal saline in the ED Will continue IV hydration at 150ml/hr. Tylenol prn for fever Blood cultures drawn. Urinalysis and Chest xray unremarkable. COVID19 Test negative On vancomycin, cefepime and flagyl Will trend lactic acid q4hr X [address] of the right lower extremity (from knee distally) when renal function improves Qualifiers: Sepsis type: sepsis due to unspecified organism Sepsis acute organ dysfunction status: unspecified Qualified Code(s): A41.9 - Sepsis, unspecified organism (2) V-tach Conclusion/Plan: Intermittent. Blood pressure stable at 137/59. Patient awake and alert. Etiology undetermined. ? 2/2 septic state. Treating infection. Initial trop 56.9. Will trend X2 more Magnesium 1.9. Phosphorus 2.7 Patient recently had an AICD placed on 04/12/21. Reason unknown. Records requested from [facility]. Dr Kidd (acid treater medical radiation tech) at [facility] contacted by Dr Welch. He recommended initiating Amiodarone gtt. This has been initiated. 2D echo ordered for the morning. Patient moved to the ICU for closer monitoring (3) Acute kidney injury Conclusion/Plan: Likely pre-renal due to dehydration and/or septic state Cr 1.7 with eGFR 40. Patient received a total of 4L of NS in the ED Will continue IV hydration with NS at 150ml/hr (4) Elevated troponin I level Conclusion/Plan: Possibly 2/2 sepsis and/or Vtach Patient denies chest pain. Will administer a full dose aspirin Initial Trop 56.9. Will trend X 2more 2D echo ordered for 05/03/21 am (5) Hyperlipidemia Conclusion/Plan: On atorvastatin 20mg po daily (6) Coronary artery disease Conclusion/Plan: On baby aspirin and atorvastatin 20mg po daily Will hold losartan due to acute kidney injury. Not on a beta-deepa. Reason unknown Initial trop 56.9. No chest pain Full dose aspirin given X1 today. (7) Chronic pain Conclusion/Plan: Tylenol, oxycodone and dilaudid ordered prn for pain - Lab Results Fish Bones: 05/02/21 19:08 05/02/21 19:08 Core Measures - Anticipated LOS I expect patient to be DC'd or transferred within 96 hours.: Yes - DVT/VTE - Prophylaxis VTE/DVT Device ordered at admit?: No VTE/DVT Prophylaxis med ordered at admit?: Yes
[2021-05-02 20:56] LABS: B. PARAPERTUSSIS- RESP PCR PAN NOT DETECTED; B. PERTUSSIS- RESP PCR PANEL NOT DETECTED; CORONAVIRUS 229E-RESP PCR NOT DETECTED; CORONAVIRUS HKU1-RESP PCR NOT DETECTED; CORONAVIRUS NL63-RESP PCR NOT DETECTED; CORONAVIRUS OC43-RESP PCR NOT DETECTED; HUMAN METAPNEUMOVIRUS NOT DETECTED; INFLUENZA A- RESP PCR PANEL NOT DETECTED; INFLUENZA B - RESP PCR PANEL NOT DETECTED; PARAINFLUENZA VIRUS 1 NOT DETECTED; PARAINFLUENZA VIRUS 2 NOT DETECTED; PARAINFLUENZA VIRUS 3 NOT DETECTED; PARAINFLUENZA VIRUS 4 NOT DETECTED; RHINOVIRUS/ENTEROVIRUS NOT DETECTED; RSV- RESP PCR PANEL NOT DETECTED; SARS-CoV-2 -RESP PCR PANEL NOT DETECTED
[2021-05-02 20:57] LABS: C. PNEUMONIAE- RESP PCR PANEL NOT DETECTED; M. PNEUMONIAE- RESP PCR PANEL NOT DETECTED
[2021-05-02 21:13] LABS: MAGNESIUM 1.9 mg/dL (1.7-2.8); PHOSPHORUS 2.7 mg/dL (2.5-4.6)
[2021-05-02] MEDS ORDERED: AMIODARONE 150 MG/100 ML 100 ML IV ONE (21:40)
[2021-05-02] MEDS ORDERED: AMIODARONE 360 MG/200 ML 200 ML IV ONE (21:41)
[2021-05-02] MEDS ORDERED: ASPIRIN 325 MG TABLET PO STA (22:07)
[2021-05-02 23:04] LABS: LACTIC ACID, VENOUS 3.8 mmol/L (0.5-2.2)
[2021-05-02] MEDS: SODIUM CHLORIDE 0.9% 1,000 ML IV SCH (23:09)
[2021-05-02] MEDS: SODIUM CHLORIDE FLUSH 0.9% 10 ML SYRINGE IVP SCH (23:11)
[2021-05-02] MEDS: AMIODARONE 360 MG/200 ML 200 ML IV ONE (23:38)
[2021-05-03] MEDS: NYSTATIN POWDER 15 GM TOP SCH ×3 (00:08→20:30)
[2021-05-03] MEDS: ACETAMINOPHEN 325 MG TABLET PO PRN ×3 (00:13→20:54)
[2021-05-03] MEDS: SODIUM CHLORIDE FLUSH 0.9% 10 ML SYRINGE IVP SCH ×4 (01:01→20:35)
[2021-05-03] MEDS: MORPHINE 2 MG/ML CARPUJECT IVP PRN ×4 (01:01→19:48)
[2021-05-03 02:29] LABS: LACTIC ACID, VENOUS 2.1 mmol/L (0.5-2.2)
[2021-05-03] MEDS: AMIODARONE 360 MG/200 ML 200 ML IV ONE (03:17)
[2021-05-03] MEDS: metroNIDAZOLE 500 MG/100 ML 500 MG/100 ML BAG IV SCH ×3 (04:54→20:31)
[2021-05-03 06:31] LABS: BASOPHILS % (AUTO) 0.2 %; EOSINOPHILS % (AUTO) 1.3 %; HCT - HEMATOCRIT 31.8 % (42.0-52.0); HGB - HEMOGLOBIN 11.4 g/dL (14.0-18.0); LYMPHOCYTES % (AUTO) 5.2 %; MEAN CORPUSCULAR HEMOGLOBIN 31.8 pg (27.0-31.0); MEAN CORPUSCULAR HGB CONC 35.8 g/dL (32.0-36.0); MEAN CORPUSCULAR VOLUME 88.8 fL (80.0-94.0); MEAN PLATELET VOLUME 9.7 fL (7.4-11.4); MONOCYTES % (AUTO) 5.7 %; NEUTROPHILS % (AUTO) 86.4 %; PLT - PLATELET COUNT 84 10^3/uL (130-450); RED BLOOD COUNT 3.58 10^6/uL (4.70-6.10); RED CELL DISTRIBUTION WIDTH 15.2 % (12.0-15.0)
[2021-05-03 06:39] LABS: ABNORMAL LYMPHS % (MANUAL) 0 %
[2021-05-03] MEDS: SODIUM CHLORIDE 0.9% 1,000 ML IV SCH ×4 (06:48→22:36)
[2021-05-03 06:50] LABS: CALCIUM 8.1 mg/dL (8.5-10.3); CREATININE 1.6 mg/dL (0.6-1.2); POTASSIUM 3.6 mmol/L (3.5-5.0)
[2021-05-03 07:12] LABS: MAGNESIUM 1.6 mg/dL (1.7-2.8); PHOSPHORUS 3.5 mg/dL (2.5-4.6)
[2021-05-03] MEDS ORDERED: POTASSIUM CHLORIDE 20 MEQ TABLET PO ONE (07:46)
[2021-05-03] MEDS ORDERED: MAGNESIUM OXIDE 400 MG TABLET PO ONE (07:46)
[2021-05-03 08:13] LABS: BAND NEUTROPHILS % (MANUAL) 7 %; LYMPHOCYTES # (MANUAL) 1.3 10^3/uL (1.5-3.5); LYMPHOCYTES % (MANUAL) 7 %; MONOCYTES # (MANUAL) 1.1 10^3/uL (0.0-1.0); NEUTROPHILS # (MANUAL) 15.3 10^3/uL (1.5-6.6); PLATELET MORPHOLOGY NORMAL APPEARANCE (NORMAL); RBC MORPHOLOGY (MULTIPLE) NORMAL APPEARANCE (NORMAL)
[2021-05-03 08:14] LABS: OTHER CELLS % (MANUAL) 2 %; WBC MORPHOLOGY (MULTIPLE) NORMAL APPEARANCE (NORMAL)
[2021-05-03 08:15] LABS: DIFFERENTIAL COMMENT MANUAL DIFFERENTIAL
[2021-05-03] MEDS: CEFEPIME 2 GM in SODIUM CHLORIDE 0.9% MINIBAG 100 ML IV SCH ×2 (08:49→19:40)
[2021-05-03] MEDS: ASPIRIN EC 81 MG TABLET PO SCH (08:55)
[2021-05-03] MEDS: ENOXAPARIN 40 MG/0.4 ML SYRINGE SUBQ SCH (08:59)
[2021-05-03 09:15] LABS: CALCIUM, IONIZED 1.03 mmol/L (1.15-1.33); VBG PH 7.427 (7.31-7.41)
--- NOTE | 2021-05-03 09:28 | PROVIDER PROGRESS NOTE ---
Subjective - Prog Note Date Prog Note Date: 05/03/21 Prog Note Time: 09:25 - Subjective Pt reports feeling: Worse Subjective: Patient reports ongoing right leg pain that has slightly improved since admission. He is wearing his BiPap machine while laying supine and sounds dyspneic when trying to speak. He is unable to talk in complete sentences but does not seem to be in respiratory distress. He has a history of DVT, coronary artery disease, and recent AICD placement but no documented history of chronic venous insufficiency. His right leg is still warm and he reports breaking both feet, which were repaired with hardware. This hardware has broken and is still implanted in both feet. There is a visible bony deformity on the medial aspecet of the feet bilaterally but more prominent on his right foot. There is also stasis dermatitis with erythema that is more prominent on the right leg than left leg. Blood cultures show streptococcus. He is now afebrile and no longer confused. Current Medications - Current Medications Current Medications: Active Medications Acetaminophen (Acetaminophen 325 Mg Tablet) 650 mg PO Q4HR PRN PRN Reason: Pain 1 to 4 Last Admin: 05/03/21 00:13 Dose: 650 mg Documented by: Aspirin (Aspirin Ec 81 Mg Tablet) 81 mg PO DAILY [facility] Last Admin: 05/03/21 08:55 Dose: 81 mg Documented by: Atorvastatin Calcium (Atorvastatin 40 Mg Tablet) 20 mg PO QPM [facility] Calcium Carbonate/Glycine (Calcium Carbonate Chew 500 Mg Tablet) 1,250 mg PO Q4H [facility]; Protocol Stop: 05/03/21 14:01 Last Admin: 05/03/21 10:17 Dose: 1,250 mg Documented by: Enoxaparin Sodium (Enoxaparin 40 Mg/0.4 Ml Syringe) 40 mg SUBQ DAILY [facility] Last Admin: 05/03/21 08:59 Dose: Not Given Documented by: Sodium Chloride (Normal Saline 0.9%) 1,000 mls @ 150 mls/hr IV .Q6H40M [facility] Last Admin: 05/03/21 06:48 Dose: 150 mls/hr Documented by: Cefepime HCl 2 gm/ Sodium (Chloride) 100 mls @ 200 mls/hr IV Q12H [facility] Last Infusion: 05/03/21 09:30 Dose: Infused Documented by: Metronidazole (Flagyl 500 Mg/100 Ml) 500 mg in 100 mls @ 100 mls/hr IV Q8H [facility] Last Infusion: 05/03/21 05:55 Dose: Infused Documented by: Vancomycin HCl 2 gm/ Sodium (Chloride) 500 mls @ 250 mls/hr IV Q24H [facility] Morphine Sulfate (Morphine 2 Mg/Ml Carpuject) 2 mg IVP Q2HR PRN PRN Reason: PAIN Last Admin: 05/03/21 10:18 Dose: 2 mg Documented by: Nystatin (Nystatin Powder 15 Gm) 1 applic TOP BID [facility] Last Admin: 05/03/21 10:16 Dose: 1 applic Documented by: Ondansetron HCl (Ondansetron 4 Mg/2 Ml Vial) 4 mg IVP Q6HR PRN PRN Reason: Nausea / Vomiting Oxycodone HCl (Oxycodone 5 Mg Tablet) 5 mg PO Q4HR PRN PRN Reason: Pain 5 to 7 Sodium Chloride (Sodium Chloride Flush 0.9% 10 Ml Syringe) 10 ml IVP PRN PRN PRN Reason: NEEDED PER PROVIDER ORDERS Sodium Chloride (Sodium Chloride Flush 0.9% 10 Ml Syringe) 10 ml IVP 0100,0900,1700 [facility] Last Admin: 05/03/21 01:01 Dose: 10 ml Documented by: Hydrocodone/Acetaminophen [Hydrocodon-Acetaminophn 10-325] 1 each PO DAILY PRN 10/18/12 Morphine Sulfate [Ms Contin] 15 mg PO TID 03/30/14 Testosterone Cypionate 140 mg IM ONCE 03/30/14 Aspirin [Aspir 81] 81 mg PO DAILY 07/03/14 Atorvastatin [Lipitor] 20 mg PO DAILY 04/19/18 Losartan [Cozaar] 50 mg PO DAILY 04/19/18 Cholecalciferol (Vitamin D3) [Vitamin D3] 1 tab ORAL DAILY 10/18/18 Melatonin 1 mg PO QPM 10/17/19 Objective - Vital Signs/Intake & Output Reviewed Vital Signs: Yes Vital Signs: Vital Signs x48h Temp Pulse Resp BP Pulse Ox 05/03/21 09:00 76 17 126/74 95 05/03/21 08:00 36.8 C 77 20 134/59 H 94 05/03/21 07:00 80 18 128/58 L 93 05/03/21 06:00 81 24 135/58 H 88 L 05/03/21 05:00 83 25 H 135/59 H 90 L 05/03/21 04:00 37.1 C 85 25 H 134/58 H 90 L 05/03/21 03:00 37.1 C 86 25 H 143/55 H 91 L Intake & Output: Intake & Output 04/30/21 05/01/21 05/02/21 05/03/21 23:59 23:59 23:59 23:59 Intake Total 4425.25 1371.665 Output Total 2632 615 Balance 1793.25 756.665 - Objective General Appearance: positive: No acute distress Eyes Bilateral: positive: PERRL, EOMI ENT: positive: Dry mucous membranes Neck: positive: No JVD, Trachea midline Respiratory: positive: No respiratory distress, Other (Dyspneic when talking despite being on BiPap.) Cardiovascular: positive: Regular rate & rhythm, No murmur, No gallop Abdomen: positive: Non-tender, No organomegaly Skin: positive: Other (Stasis dermatitis with erythema on bilateral lower extremities, more pronounced on right leg likely due to venostasis.) Extremities: positive: Other (Right leg painful to the touch and warm. Ulcer on ball of right foot.) Neurologic/Psychiatric: positive: Oriented x3 - Lab Results Fish Bones: 05/03/21 05:20 05/03/21 05:20 Other Labs: Lab Results x24hrs 05/03/21 05/03/21 05/03/21 Range/Units 08:31 08:31 05:20 WBC (4.8-10.8) x10^3/uL RBC (4.70-6.10) 10^6/uL Hgb (14.0-18.0) g/dL Hct (42.0-52.0) % MCV (80.0-94.0) fL MCH (27.0-31.0) pg MCHC (32.0-36.0) g/dL RDW (12.0-15.0) % Plt Count (130-450) 10^3/uL MPV (7.4-11.4) fL Neut # (Auto) (1.5-6.6) 10^3/uL Lymph # (Auto) (1.5-3.5) 10^3/uL [place] # (Auto) (0.0-1.0) 10^3/uL Eos # (Auto) (0.0-0.7) 10^3/uL Baso # (Auto) (0.0-0.1) 10^3/uL Absolute Nucleated RBC x10^3/uL Total Counted Band Neuts % (Manual) (0 - 10) % Abnorm Lymph % (Manual) % Other Cells % % Nucleated RBC % /100WBC Neutrophils # (Manual) (1.5-6.6) 10^3/uL Lymphocytes # (Manual) (1.5-3.5) 10^3/uL Monocytes # (Manual) (0.0-1.0) 10^3/uL Eosinophils # (Manual) (0-0.7) 10^3/uL Basophils # (Manual) (0-0.1) 10^3/uL Differential Comment WBC Morphology (NORMAL) Platelet Morphology (NORMAL) RBC Morph Micro Appear (NORMAL) ESR (0-20) mm/Hr VBG pH 7.427 H (7.31-7.41) Ionized Calcium 1.03 L (1.15-1.33) mmol/L Sodium (135-145) mmol/L Potassium (3.5-5.0) mmol/L Chloride (101-111) mmol/L Carbon Dioxide (21-32) mmol/L Anion Gap (6-13) BUN (6-20) mg/dL Creatinine (0.6-1.2) mg/dL Estimated GFR (MDRD) (>89) Glucose (70-100) mg/dL Lactic Acid 2.1 (0.5-2.2) mmol/L Calcium (8.5-10.3) mg/dL Phosphorus 3.5 (2.5-4.6) mg/dL Magnesium 1.6 L (1.7-2.8) mg/dL Total Bilirubin (0.2-1.0) mg/dL AST (10-42) IU/L ALT (10-60) IU/L Alkaline Phosphatase (42-121) IU/L Troponin I High Sens (2.3-19.7) ng/L C-Reactive Protein (0-1.0) mg/dL B-Natriuretic Peptide (5-100) pg/mL Total Protein (6.7-8.2) g/dL Albumin (3.2-5.5) g/dL Globulin (2.1-4.2) g/dL Albumin/Globulin Ratio (1.0-2.2) Lipase (22-51) U/L Urine Color Urine Clarity (CLEAR) Urine pH (5.0-7.5) PH Ur Specific [place] (1.002-1.030) Urine Protein (NEGATIVE) mg/dL Urine Glucose (UA) (NEGATIVE) mg/dL Urine Ketones (NEGATIVE) mg/dL Urine Occult Blood (NEGATIVE) Urine Nitrite (NEGATIVE) Urine Bilirubin (NEGATIVE) Urine Urobilinogen (NORMAL) E.U./dL Ur Leukocyte Esterase (NEGATIVE) Urine RBC (0-5) /HPF Urine WBC (0-3) /HPF Ur Squamous Epith Cells (<= Few) Urine Bacteria (None Seen) /HPF Urine Casts /LPF Urine Culture Comments Nasal Adenovirus (PCR) Nasal B. parapertussis DNA (PCR) Nasal Coronavir 229E PCR Nasal Coronavir HKU1 PCR Nasal Coronavir NL63 PCR Nasal Coronavir OC43 PCR Nasal Enterovir/Rhinovir PCR Nasal Influenza B PCR Nasal Influenza A PCR Nasal Parainfluen 1 PCR Nasal Parainfluen 2 PCR Nasal Parainfluen 3 PCR Nasal Parainfluen 4 PCR Nasal RSV (PCR) Nasal Screen MRSA (PCR) (NEGATIVE) Nasal B.pertussis DNA PCR Nasal C.pneumoniae (PCR) Kyle Human Metapneumo PCR Nasal M.pneumoniae (PCR) Nasal SARS-CoV-2 (PCR) 05/03/21 05/03/21 05/03/21 Range/Units 05:20 05:20 03:11 WBC 18.0 H (4.8-10.8) x10^3/uL RBC 3.58 L (4.70-6.10) 10^6/uL Hgb 11.4 L (14.0-18.0) g/dL Hct 31.8 L (42.0-52.0) % MCV 88.8 (80.0-94.0) fL MCH 31.8 H (27.0-31.0) pg MCHC 35.8 (32.0-36.0) g/dL RDW 15.2 H (12.0-15.0) % Plt Count 84 L (130-450) 10^3/uL MPV 9.7 (7.4-11.4) fL Neut # (Auto) Not Reportable (1.5-6.6) 10^3/uL Lymph # (Auto) Not Reportable (1.5-3.5) 10^3/uL [place] # (Auto) Not Reportable (0.0-1.0) 10^3/uL Eos # (Auto) Not Reportable (0.0-0.7) 10^3/uL Baso # (Auto) Not Reportable (0.0-0.1) 10^3/uL Absolute Nucleated RBC Not Reportable x10^3/uL Total Counted 100 Band Neuts % (Manual) 7 (0 - 10) % Abnorm Lymph % (Manual) 0 % Other Cells % 2 % Nucleated RBC % Not Reportable /100WBC Neutrophils # (Manual) 15.3 H (1.5-6.6) 10^3/uL Lymphocytes # (Manual) 1.3 L (1.5-3.5) 10^3/uL Monocytes # (Manual) 1.1 H (0.0-1.0) 10^3/uL Eosinophils # (Manual) 0.0 (0-0.7) 10^3/uL Basophils # (Manual) 0.0 (0-0.1) 10^3/uL Differential Comment MANUAL DIFFERENTIAL WBC Morphology NORMAL APPEARANCE (NORMAL) Platelet Morphology NORMAL APPEARANCE (NORMAL) RBC Morph Micro Appear NORMAL APPEARANCE (NORMAL) ESR (0-20) mm/Hr VBG pH (7.31-7.41) Ionized Calcium (1.15-1.33) mmol/L Sodium 129 L (135-145) mmol/L Potassium 3.6 (3.5-5.0) mmol/L Chloride 97 L (101-111) mmol/L Carbon Dioxide 21 (21-32) mmol/L Anion Gap 11.0 (6-13) BUN 28 H (6-20) mg/dL Creatinine 1.6 H (0.6-1.2) mg/dL Estimated GFR (MDRD) 43 L (>89) Glucose 283 H (70-100) mg/dL Lactic Acid (0.5-2.2) mmol/L Calcium 8.1 L (8.5-10.3) mg/dL Phosphorus (2.5-4.6) mg/dL Magnesium (1.7-2.8) mg/dL Total Bilirubin (0.2-1.0) mg/dL AST (10-42) IU/L ALT (10-60) IU/L Alkaline Phosphatase (42-121) IU/L Troponin I High Sens 109.7 H* (2.3-19.7) ng/L C-Reactive Protein (0-1.0) mg/dL B-Natriuretic Peptide (5-100) pg/mL Total Protein (6.7-8.2) g/dL Albumin (3.2-5.5) g/dL Globulin (2.1-4.2) g/dL Albumin/Globulin Ratio (1.0-2.2) Lipase (22-51) U/L Urine Color Urine Clarity (CLEAR) Urine pH (5.0-7.5) PH Ur Specific [place] (1.002-1.030) Urine Protein (NEGATIVE) mg/dL Urine Glucose (UA) (NEGATIVE) mg/dL Urine Ketones (NEGATIVE) mg/dL Urine Occult Blood (NEGATIVE) Urine Nitrite (NEGATIVE) Urine Bilirubin (NEGATIVE) Urine Urobilinogen (NORMAL) E.U./dL Ur Leukocyte Esterase (NEGATIVE) Urine RBC (0-5) /HPF Urine WBC (0-3) /HPF Ur Squamous Epith Cells (<= Few) Urine Bacteria (None Seen) /HPF Urine Casts /LPF Urine Culture Comments Nasal Adenovirus (PCR) Nasal B. parapertussis DNA (PCR) Nasal Coronavir 229E PCR Nasal Coronavir HKU1 PCR Nasal Coronavir NL63 PCR Nasal Coronavir OC43 PCR Nasal Enterovir/Rhinovir PCR Nasal Influenza B PCR Nasal Influenza A PCR Nasal Parainfluen 1 PCR Nasal Parainfluen 2 PCR Nasal Parainfluen 3 PCR Nasal Parainfluen 4 PCR Nasal RSV (PCR) Nasal Screen MRSA (PCR) (NEGATIVE) Nasal B.pertussis DNA PCR Nasal C.pneumoniae (PCR) Kyle Human Metapneumo PCR Nasal M.pneumoniae (PCR) Nasal SARS-CoV-2 (PCR) 05/03/21 05/03/21 05/02/21 Range/Units 03:11 02:09 22:35 WBC (4.8-10.8) x10^3/uL RBC (4.70-6.10) 10^6/uL Hgb (14.0-18.0) g/dL Hct (42.0-52.0) % MCV (80.0-94.0) fL MCH (27.0-31.0) pg MCHC (32.0-36.0) g/dL RDW (12.0-15.0) % Plt Count (130-450) 10^3/uL MPV (7.4-11.4) fL Neut # (Auto) (1.5-6.6) 10^3/uL Lymph # (Auto) (1.5-3.5) 10^3/uL [place] # (Auto) (0.0-1.0) 10^3/uL Eos # (Auto) (0.0-0.7) 10^3/uL Baso # (Auto) (0.0-0.1) 10^3/uL Absolute Nucleated RBC x10^3/uL Total Counted Band Neuts % (Manual) (0 - 10) % Abnorm Lymph % (Manual) % Other Cells % % Nucleated RBC % /100WBC Neutrophils # (Manual) (1.5-6.6) 10^3/uL Lymphocytes # (Manual) (1.5-3.5) 10^3/uL Monocytes # (Manual) (0.0-1.0) 10^3/uL Eosinophils # (Manual) (0-0.7) 10^3/uL Basophils # (Manual) (0-0.1) 10^3/uL Differential Comment WBC Morphology (NORMAL) Platelet Morphology (NORMAL) RBC Morph Micro Appear (NORMAL) ESR (0-20) mm/Hr VBG pH (7.31-7.41) Ionized Calcium (1.15-1.33) mmol/L Sodium (135-145) mmol/L Potassium (3.5-5.0) mmol/L Chloride (101-111) mmol/L Carbon Dioxide (21-32) mmol/L Anion Gap (6-13) BUN (6-20) mg/dL Creatinine (0.6-1.2) mg/dL Estimated GFR (MDRD) (>89) Glucose (70-100) mg/dL Lactic Acid 2.2 2.1 (0.5-2.2) mmol/L Calcium (8.5-10.3) mg/dL Phosphorus (2.5-4.6) mg/dL Magnesium (1.7-2.8) mg/dL Total Bilirubin (0.2-1.0) mg/dL AST (10-42) IU/L ALT (10-60) IU/L Alkaline Phosphatase (42-121) IU/L Troponin I High Sens (2.3-19.7) ng/L C-Reactive Protein (0-1.0) mg/dL B-Natriuretic Peptide (5-100) pg/mL Total Protein (6.7-8.2) g/dL Albumin (3.2-5.5) g/dL Globulin (2.1-4.2) g/dL Albumin/Globulin Ratio (1.0-2.2) Lipase (22-51) U/L Urine Color Urine Clarity (CLEAR) Urine pH (5.0-7.5) PH Ur Specific [place] (1.002-1.030) Urine Protein (NEGATIVE) mg/dL Urine Glucose (UA) (NEGATIVE) mg/dL Urine Ketones (NEGATIVE) mg/dL Urine Occult Blood (NEGATIVE) Urine Nitrite (NEGATIVE) Urine Bilirubin (NEGATIVE) Urine Urobilinogen (NORMAL) E.U./dL Ur Leukocyte Esterase (NEGATIVE) Urine RBC (0-5) /HPF Urine WBC (0-3) /HPF Ur Squamous Epith Cells (<= Few) Urine Bacteria (None Seen) /HPF Urine Casts /LPF Urine Culture Comments Nasal Adenovirus (PCR) Nasal B. parapertussis DNA (PCR) Nasal Coronavir 229E PCR Nasal Coronavir HKU1 PCR Nasal Coronavir NL63 PCR Nasal Coronavir OC43 PCR Nasal Enterovir/Rhinovir PCR Nasal Influenza B PCR Nasal Influenza A PCR Nasal Parainfluen 1 PCR Nasal Parainfluen 2 PCR Nasal Parainfluen 3 PCR Nasal Parainfluen 4 PCR Nasal RSV (PCR) Nasal Screen MRSA (PCR) NEGATIVE (NEGATIVE) Nasal B.pertussis DNA PCR Nasal C.pneumoniae (PCR) Kyle Human Metapneumo PCR Nasal M.pneumoniae (PCR) Nasal SARS-CoV-2 (PCR) 05/02/21 05/02/21 05/02/21 Range/Units 22:35 21:01 19:58 WBC (4.8-10.8) x10^3/uL RBC (4.70-6.10) 10^6/uL Hgb (14.0-18.0) g/dL Hct (42.0-52.0) % MCV (80.0-94.0) fL MCH (27.0-31.0) pg MCHC (32.0-36.0) g/dL RDW (12.0-15.0) % Plt Count (130-450) 10^3/uL MPV (7.4-11.4) fL Neut # (Auto) (1.5-6.6) 10^3/uL Lymph # (Auto) (1.5-3.5) 10^3/uL [place] # (Auto) (0.0-1.0) 10^3/uL Eos # (Auto) (0.0-0.7) 10^3/uL Baso # (Auto) (0.0-0.1) 10^3/uL Absolute Nucleated RBC x10^3/uL Total Counted Band Neuts % (Manual) (0 - 10) % Abnorm Lymph % (Manual) % Other Cells % % Nucleated RBC % /100WBC Neutrophils # (Manual) (1.5-6.6) 10^3/uL Lymphocytes # (Manual) (1.5-3.5) 10^3/uL Monocytes # (Manual) (0.0-1.0) 10^3/uL Eosinophils # (Manual) (0-0.7) 10^3/uL Basophils # (Manual) (0-0.1) 10^3/uL Differential Comment WBC Morphology (NORMAL) Platelet Morphology (NORMAL) RBC Morph Micro Appear (NORMAL) ESR 32 H (0-20) mm/Hr VBG pH (7.31-7.41) Ionized Calcium (1.15-1.33) mmol/L Sodium (135-145) mmol/L Potassium (3.5-5.0) mmol/L Chloride (101-111) mmol/L Carbon Dioxide (21-32) mmol/L Anion Gap (6-13) BUN (6-20) mg/dL Creatinine (0.6-1.2) mg/dL Estimated GFR (MDRD) (>89) Glucose (70-100) mg/dL Lactic Acid 3.8 H* (0.5-2.2) mmol/L Calcium (8.5-10.3) mg/dL Phosphorus (2.5-4.6) mg/dL Magnesium (1.7-2.8) mg/dL Total Bilirubin (0.2-1.0) mg/dL AST (10-42) IU/L ALT (10-60) IU/L Alkaline Phosphatase (42-121) IU/L Troponin I High Sens (2.3-19.7) ng/L C-Reactive Protein (0-1.0) mg/dL B-Natriuretic Peptide (5-100) pg/mL Total Protein (6.7-8.2) g/dL Albumin (3.2-5.5) g/dL Globulin (2.1-4.2) g/dL Albumin/Globulin Ratio (1.0-2.2) Lipase (22-51) U/L Urine Color Urine Clarity (CLEAR) Urine pH (5.0-7.5) PH Ur Specific [place] (1.002-1.030) Urine Protein (NEGATIVE) mg/dL Urine Glucose (UA) (NEGATIVE) mg/dL Urine Ketones (NEGATIVE) mg/dL Urine Occult Blood (NEGATIVE) Urine Nitrite (NEGATIVE) Urine Bilirubin (NEGATIVE) Urine Urobilinogen (NORMAL) E.U./dL Ur Leukocyte Esterase (NEGATIVE) Urine RBC (0-5) /HPF Urine WBC (0-3) /HPF Ur Squamous Epith Cells (<= Few) Urine Bacteria (None Seen) /HPF Urine Casts /LPF Urine Culture Comments Nasal Adenovirus (PCR) NOT DETECTED Nasal B. parapertussis DNA (PCR) NOT DETECTED Nasal Coronavir 229E PCR NOT DETECTED Nasal Coronavir HKU1 PCR NOT DETECTED Nasal Coronavir NL63 PCR NOT DETECTED Nasal Coronavir OC43 PCR NOT DETECTED Nasal Enterovir/Rhinovir PCR NOT DETECTED Nasal Influenza B PCR NOT DETECTED Nasal Influenza A PCR NOT DETECTED Nasal Parainfluen 1 PCR NOT DETECTED Nasal Parainfluen 2 PCR NOT DETECTED Nasal Parainfluen 3 PCR NOT DETECTED Nasal Parainfluen 4 PCR NOT DETECTED Nasal RSV (PCR) NOT DETECTED Nasal Screen MRSA (PCR) (NEGATIVE) Nasal B.pertussis DNA PCR NOT DETECTED Nasal C.pneumoniae (PCR) NOT DETECTED Kyle Human Metapneumo PCR NOT DETECTED Nasal M.pneumoniae (PCR) NOT DETECTED Nasal SARS-CoV-2 (PCR) NOT DETECTED 05/02/21 05/02/21 05/02/21 Range/Units 19:45 19:08 19:08 WBC (4.8-10.8) x10^3/uL RBC (4.70-6.10) 10^6/uL Hgb (14.0-18.0) g/dL Hct (42.0-52.0) % MCV (80.0-94.0) fL MCH (27.0-31.0) pg MCHC (32.0-36.0) g/dL RDW (12.0-15.0) % Plt Count (130-450) 10^3/uL MPV (7.4-11.4) fL Neut # (Auto) (1.5-6.6) 10^3/uL Lymph # (Auto) (1.5-3.5) 10^3/uL [place] # (Auto) (0.0-1.0) 10^3/uL Eos # (Auto) (0.0-0.7) 10^3/uL Baso # (Auto) (0.0-0.1) 10^3/uL Absolute Nucleated RBC x10^3/uL Total Counted Band Neuts % (Manual) (0 - 10) % Abnorm Lymph % (Manual) % Other Cells % % Nucleated RBC % /100WBC Neutrophils # (Manual) (1.5-6.6) 10^3/uL Lymphocytes # (Manual) (1.5-3.5) 10^3/uL Monocytes # (Manual) (0.0-1.0) 10^3/uL Eosinophils # (Manual) (0-0.7) 10^3/uL Basophils # (Manual) (0-0.1) 10^3/uL Differential Comment WBC Morphology (NORMAL) Platelet Morphology (NORMAL) RBC Morph Micro Appear (NORMAL) ESR (0-20) mm/Hr VBG pH (7.31-7.41) Ionized Calcium (1.15-1.33) mmol/L Sodium (135-145) mmol/L Potassium (3.5-5.0) mmol/L Chloride (101-111) mmol/L Carbon Dioxide (21-32) mmol/L Anion Gap (6-13) BUN (6-20) mg/dL Creatinine (0.6-1.2) mg/dL Estimated GFR (MDRD) (>89) Glucose (70-100) mg/dL Lactic Acid (0.5-2.2) mmol/L Calcium (8.5-10.3) mg/dL Phosphorus 2.7 (2.5-4.6) mg/dL Magnesium 1.9 (1.7-2.8) mg/dL Total Bilirubin (0.2-1.0) mg/dL AST (10-42) IU/L ALT (10-60) IU/L Alkaline Phosphatase (42-121) IU/L Troponin I High Sens 56.9 H* (2.3-19.7) ng/L C-Reactive Protein (0-1.0) mg/dL B-Natriuretic Peptide (5-100) pg/mL Total Protein (6.7-8.2) g/dL Albumin (3.2-5.5) g/dL Globulin (2.1-4.2) g/dL Albumin/Globulin Ratio (1.0-2.2) Lipase (22-51) U/L Urine Color YELLOW Urine Clarity CLEAR (CLEAR) Urine pH 5.5 (5.0-7.5) PH Ur Specific [place] 1.025 (1.002-1.030) Urine Protein TRACE (NEGATIVE) mg/dL Urine Glucose (UA) 250 H (NEGATIVE) mg/dL Urine Ketones NEGATIVE (NEGATIVE) mg/dL Urine Occult Blood SMALL H (NEGATIVE) Urine Nitrite NEGATIVE (NEGATIVE) Urine Bilirubin NEGATIVE (NEGATIVE) Urine Urobilinogen 0.2 (NORMAL) (NORMAL) E.U./dL Ur Leukocyte Esterase NEGATIVE (NEGATIVE) Urine RBC 6-10 H (0-5) /HPF Urine WBC 0-3 (0-3) /HPF Ur Squamous Epith Cells RARE Squamous (<= Few) Urine Bacteria Rare (None Seen) /HPF Urine Casts 3-5 Granular Casts /LPF Urine Culture Comments NOT INDICATED Nasal Adenovirus (PCR) Nasal B. parapertussis DNA (PCR) Nasal Coronavir 229E PCR Nasal Coronavir HKU1 PCR Nasal Coronavir NL63 PCR Nasal Coronavir OC43 PCR Nasal Enterovir/Rhinovir PCR Nasal Influenza B PCR Nasal Influenza A PCR Nasal Parainfluen 1 PCR Nasal Parainfluen 2 PCR Nasal Parainfluen 3 PCR Nasal Parainfluen 4 PCR Nasal RSV (PCR) Nasal Screen MRSA (PCR) (NEGATIVE) Nasal B.pertussis DNA PCR Nasal C.pneumoniae (PCR) Kyle Human Metapneumo PCR Nasal M.pneumoniae (PCR) Nasal SARS-CoV-2 (PCR) 05/02/21 05/02/21 05/02/21 Range/Units 19:08 19:08 19:08 WBC (4.8-10.8) x10^3/uL RBC (4.70-6.10) 10^6/uL Hgb (14.0-18.0) g/dL Hct (42.0-52.0) % MCV (80.0-94.0) fL MCH (27.0-31.0) pg MCHC (32.0-36.0) g/dL RDW (12.0-15.0) % Plt Count (130-450) 10^3/uL MPV (7.4-11.4) fL Neut # (Auto) (1.5-6.6) 10^3/uL Lymph # (Auto) (1.5-3.5) 10^3/uL [place] # (Auto) (0.0-1.0) 10^3/uL Eos # (Auto) (0.0-0.7) 10^3/uL Baso # (Auto) (0.0-0.1) 10^3/uL Absolute Nucleated RBC x10^3/uL Total Counted Band Neuts % (Manual) (0 - 10) % Abnorm Lymph % (Manual) % Other Cells % % Nucleated RBC % /100WBC Neutrophils # (Manual) (1.5-6.6) 10^3/uL Lymphocytes # (Manual) (1.5-3.5) 10^3/uL Monocytes # (Manual) (0.0-1.0) 10^3/uL Eosinophils # (Manual) (0-0.7) 10^3/uL Basophils # (Manual) (0-0.1) 10^3/uL Differential Comment WBC Morphology (NORMAL) Platelet Morphology (NORMAL) RBC Morph Micro Appear (NORMAL) ESR (0-20) mm/Hr VBG pH (7.31-7.41) Ionized Calcium (1.15-1.33) mmol/L Sodium (135-145) mmol/L Potassium (3.5-5.0) mmol/L Chloride (101-111) mmol/L Carbon Dioxide (21-32) mmol/L Anion Gap (6-13) BUN (6-20) mg/dL Creatinine (0.6-1.2) mg/dL Estimated GFR (MDRD) (>89) Glucose (70-100) mg/dL Lactic Acid 4.7 H* (0.5-2.2) mmol/L Calcium (8.5-10.3) mg/dL Phosphorus (2.5-4.6) mg/dL Magnesium (1.7-2.8) mg/dL Total Bilirubin (0.2-1.0) mg/dL AST (10-42) IU/L ALT (10-60) IU/L Alkaline Phosphatase (42-121) IU/L Troponin I High Sens (2.3-19.7) ng/L C-Reactive Protein 21.3 H (0-1.0) mg/dL B-Natriuretic Peptide 117 H (5-100) pg/mL Total Protein (6.7-8.2) g/dL Albumin (3.2-5.5) g/dL Globulin (2.1-4.2) g/dL Albumin/Globulin Ratio (1.0-2.2) Lipase (22-51) U/L Urine Color Urine Clarity (CLEAR) Urine pH (5.0-7.5) PH Ur Specific [place] (1.002-1.030) Urine Protein (NEGATIVE) mg/dL Urine Glucose (UA) (NEGATIVE) mg/dL Urine Ketones (NEGATIVE) mg/dL Urine Occult Blood (NEGATIVE) Urine Nitrite (NEGATIVE) Urine Bilirubin (NEGATIVE) Urine Urobilinogen (NORMAL) E.U./dL Ur Leukocyte Esterase (NEGATIVE) Urine RBC (0-5) /HPF Urine WBC (0-3) /HPF Ur Squamous Epith Cells (<= Few) Urine Bacteria (None Seen) /HPF Urine Casts /LPF Urine Culture Comments Nasal Adenovirus (PCR) Nasal B. parapertussis DNA (PCR) Nasal Coronavir 229E PCR Nasal Coronavir HKU1 PCR Nasal Coronavir NL63 PCR Nasal Coronavir OC43 PCR Nasal Enterovir/Rhinovir PCR Nasal Influenza B PCR Nasal Influenza A PCR Nasal Parainfluen 1 PCR Nasal Parainfluen 2 PCR Nasal Parainfluen 3 PCR Nasal Parainfluen 4 PCR Nasal RSV (PCR) Nasal Screen MRSA (PCR) (NEGATIVE) Nasal B.pertussis DNA PCR Nasal C.pneumoniae (PCR) Kyle Human Metapneumo PCR Nasal M.pneumoniae (PCR) Nasal SARS-CoV-2 (PCR) 05/02/21 05/02/21 Range/Units 19:08 19:08 WBC 16.5 H (4.8-10.8) x10^3/uL RBC 4.40 L (4.70-6.10) 10^6/uL Hgb 13.9 L (14.0-18.0) g/dL Hct 39.9 L (42.0-52.0) % MCV 90.7 (80.0-94.0) fL MCH 31.6 H (27.0-31.0) pg MCHC 34.8 (32.0-36.0) g/dL RDW 15.2 H (12.0-15.0) % Plt Count 99 L (130-450) 10^3/uL MPV 8.8 (7.4-11.4) fL Neut # (Auto) 14.4 H (1.5-6.6) 10^3/uL Lymph # (Auto) 0.8 L (1.5-3.5) 10^3/uL [place] # (Auto) 0.8 (0.0-1.0) 10^3/uL Eos # (Auto) 0.3 (0.0-0.7) 10^3/uL Baso # (Auto) 0.1 (0.0-0.1) 10^3/uL Absolute Nucleated RBC 0.00 x10^3/uL Total Counted Band Neuts % (Manual) (0 - 10) % Abnorm Lymph % (Manual) % Other Cells % % Nucleated RBC % 0.0 /100WBC Neutrophils # (Manual) (1.5-6.6) 10^3/uL Lymphocytes # (Manual) (1.5-3.5) 10^3/uL Monocytes # (Manual) (0.0-1.0) 10^3/uL Eosinophils # (Manual) (0-0.7) 10^3/uL Basophils # (Manual) (0-0.1) 10^3/uL Differential Comment WBC Morphology (NORMAL) Platelet Morphology (NORMAL) RBC Morph Micro Appear (NORMAL) ESR (0-20) mm/Hr VBG pH (7.31-7.41) Ionized Calcium (1.15-1.33) mmol/L Sodium 129 L (135-145) mmol/L Potassium 3.7 (3.5-5.0) mmol/L Chloride 93 L (101-111) mmol/L Carbon Dioxide 23 (21-32) mmol/L Anion Gap 13.0 (6-13) BUN 26 H (6-20) mg/dL Creatinine 1.7 H (0.6-1.2) mg/dL Estimated GFR (MDRD) 40 L (>89) Glucose 283 H (70-100) mg/dL Lactic Acid (0.5-2.2) mmol/L Calcium 9.3 (8.5-10.3) mg/dL Phosphorus (2.5-4.6) mg/dL Magnesium (1.7-2.8) mg/dL Total Bilirubin 2.2 H (0.2-1.0) mg/dL AST 50 H (10-42) IU/L ALT 31 (10-60) IU/L Alkaline Phosphatase 58 (42-121) IU/L Troponin I High Sens (2.3-19.7) ng/L C-Reactive Protein (0-1.0) mg/dL B-Natriuretic Peptide (5-100) pg/mL Total Protein 7.3 (6.7-8.2) g/dL Albumin 4.2 (3.2-5.5) g/dL Globulin 3.1 (2.1-4.2) g/dL Albumin/Globulin Ratio 1.4 (1.0-2.2) Lipase 34 (22-51) U/L Urine Color Urine Clarity (CLEAR) Urine pH (5.0-7.5) PH Ur Specific [place] (1.002-1.030) Urine Protein (NEGATIVE) mg/dL Urine Glucose (UA) (NEGATIVE) mg/dL Urine Ketones (NEGATIVE) mg/dL Urine Occult Blood (NEGATIVE) Urine Nitrite (NEGATIVE) Urine Bilirubin (NEGATIVE) Urine Urobilinogen (NORMAL) E.U./dL Ur Leukocyte Esterase (NEGATIVE) Urine RBC (0-5) /HPF Urine WBC (0-3) /HPF Ur Squamous Epith Cells (<= Few) Urine Bacteria (None Seen) /HPF Urine Casts /LPF Urine Culture Comments Nasal Adenovirus (PCR) Nasal B. parapertussis DNA (PCR) Nasal Coronavir 229E PCR Nasal Coronavir HKU1 PCR Nasal Coronavir NL63 PCR Nasal Coronavir OC43 PCR Nasal Enterovir/Rhinovir PCR Nasal Influenza B PCR Nasal Influenza A PCR Nasal Parainfluen 1 PCR Nasal Parainfluen 2 PCR Nasal Parainfluen 3 PCR Nasal Parainfluen 4 PCR Nasal RSV (PCR) Nasal Screen MRSA (PCR) (NEGATIVE) Nasal B.pertussis DNA PCR Nasal C.pneumoniae (PCR) Kyle Human Metapneumo PCR Nasal M.pneumoniae (PCR) Nasal SARS-CoV-2 (PCR) ABX Reporting Has patient been on IV antibiotics over the past 48 hours?: Yes Sepsis Event Note (H) - Evaluation Current Stage of Sepsis: Sepsis Possible source of Sepsis: positive: Skin/soft tissue - Sepsis Criteria Sepsis Criteria: Recorded Temperature greater than 38.3C or Less than 36C, Recorded Heart Rate greater than 90 bpm, Recorded Respiratory Rate greater than 20, Respiratory: Increasing oxygen requirements, WBC count greater than 12,000 or less than 4000 Assessment/Plan - Problem List (1) Sepsis Impression: Conclusion/Plan: Blood culture grew Streptococcus, unspecified. Suspect 2/2 Right lower extremity cellulitis. We will need to rule out osteomyelitis, which we will obtain a CT s can for once renal function improves. Today, eGFR is 43 and Cr 1.6, so we are still unable to perform a CT scan with contrast. Hopefully his renal function is high enough for a CT scan tomorrow. Patient has an ulcer on the ball of the right foot, which could be the cause of the cellulitis and sepsis. Sepsis could also be due to infected foot hardware from prior surgery to repair right foot fracture. CT scan will give us a better idea of potential infection source. WBC has increased to 18.0, lactic acid has decreased to 2.1, and Temp has decreased to 37.1 degree Celsius. Will continue IV hydration at 150ml/hr. Tylenol prn if fever returns. Urinalysis and Chest xray unremarkable. COVID19 Test negative. Continue on vancomycin, cefepime and flagyl until exact organism is known. Will switch to appropriate antibiotic coverage if needed once organism is known. Continue with daily blood cultures until cultures result negative. Discontinue lactic acid trend as this has normalized. Qualifiers: Sepsis type: sepsis due to Streptococcus, unspecified Sepsis acute organ dysfunction status: unspecified Qualified Code(s): A41.9 - Sepsis, unspecified organism (2) V-tach Conclusion/Plan: Patient has long-standing history of intermittent V-tach. Blood pressure stable at 135/58. Patient awake and alert. 2/2 septic state could be worsening the V-tach. Continue to treat infection. Initial trop 56.9. Elevated to 109.7 at 3:59am and decreased to 64.7 at 8am. Discontinue trop trending. Magnesium has decreased further to 1.6. Phosphorus has normalized and is currently at 3.5. Patient recently had an AICD placed on 04/12/21. Reason unknown. Records requested from [facility]. Dr Kidd (family preservation officer plant utility person) at [facility] contacted by Dr Welch. He advised the patient be started on Amiodarone, which was started yesterday. Continue Amiodarone gtt until loading complete. Will switch to PO once loading dose completed. Still waiting on 2D echo to be performed. Patient in the ICU for continued closer monitoring (3) Acute kidney injury Conclusion/Plan: Likely pre-renal due to dehydration and/or septic state Cr 1.6 with eGFR 43 today. Will continue IV hydration with NS at 150ml/hr (4) Elevated troponin I level Conclusion/Plan: Possibly 2/2 sepsis and/or Vtach Patient denies chest pain. Full dose of aspirin given yesterday. Initial Trop 56.9. Elevated to 109.7 at 3:59am and decreased to 64.7 at 8am. Still pending 2D echo, which was ordered for this morning. (5) Hyperlipidemia Conclusion/Plan: Continue atorvastatin 20mg po daily. (6) Coronary artery disease Conclusion/Plan: On baby aspirin and atorvastatin 20mg po daily Will hold losartan due to acute kidney injury. Not on a beta-deepa. Reason unknown Initial trop 56.9, which elevated to 109.7 at 3:59am and decreased to 64.7 at 8am this morning. Continues to report no chest pain (7) Chronic pain Conclusion/Plan: Continue Tylenol, oxycodone and dilaudid prn for pain
[2021-05-03] MEDS: CALCIUM CARBONATE CHEW 500 MG TABLET PO SCH ×4 (10:17→22:32)
--- NOTE | 2021-05-03 16:27 | PHARMACY PROGRESS NOTE ---
- Best Possible Medication History Admit Date and Time: 05/02/212025 Processed by: Pharmacy Medication History completed: Yes Patient Interview: Completed Secondary Source(s): Spouse/Significant other, Physician records, Pharmacy records, Insurance records As the person ultimately responsible for medication therapy, providers are able to order a medication from an existing home medication list in [facility] via the "Reconcile Routine" prior to Confirmation of that medication by systems support engineer. Such practice is discouraged except when the physician, in their clinical judgment, deems that a medical need exists for a medication without regard to previous use.
[2021-05-03] MEDS: INSULIN ASPART 300 UNIT/3 ML PEN SUBQ SCH ×2 (17:27→20:43)
[2021-05-03 17:58] LABS: CALCIUM, IONIZED 1.07 mmol/L (1.15-1.33); VBG PH 7.461 (7.31-7.41)
[2021-05-03 18:05] LABS: MAGNESIUM 1.9 mg/dL (1.7-2.8)
[2021-05-03] MEDS: SODIUM CHLORIDE FLUSH 0.9% 10 ML SYRINGE IVP PRN (19:49)
[2021-05-03] MEDS ORDERED: VANCOMYCIN INJ 2 GM in SODIUM CHLORIDE 0.9% 500 ML IV SCH (20:00)
[2021-05-03] MEDS: ATORVASTATIN 40 MG TABLET PO SCH (20:30)
[2021-05-03] MEDS: INSULIN GLARGINE 300 UNIT/3 ML PEN SUBQ SCH (20:43)
[2021-05-04] MEDS: SODIUM CHLORIDE 0.9% 1,000 ML IV SCH (04:48)
[2021-05-04] MEDS: metroNIDAZOLE 500 MG/100 ML 500 MG/100 ML BAG IV SCH ×3 (04:48→20:51)
[2021-05-04] MEDS: ACETAMINOPHEN 325 MG TABLET PO PRN (04:55)
[2021-05-04 05:13] LABS: CALCIUM, IONIZED 1.08 mmol/L (1.15-1.33); VBG PH 7.455 (7.31-7.41)
[2021-05-04 05:15] LABS: BASOPHILS % (AUTO) 0.1 %; HCT - HEMATOCRIT 29.3 % (42.0-52.0); HGB - HEMOGLOBIN 10.5 g/dL (14.0-18.0); LYMPHOCYTES # (AUTO) 0.5 10^3/uL (1.5-3.5); LYMPHOCYTES % (AUTO) 7.2 %; MEAN CORPUSCULAR HEMOGLOBIN 31.8 pg (27.0-31.0); MEAN CORPUSCULAR HGB CONC 35.8 g/dL (32.0-36.0); MEAN CORPUSCULAR VOLUME 88.8 fL (80.0-94.0); MEAN PLATELET VOLUME 9.7 fL (7.4-11.4); MONOCYTES # (AUTO) 0.6 10^3/uL (0.0-1.0); MONOCYTES % (AUTO) 7.9 %; NEUTROPHILS # (AUTO) 5.9 10^3/uL (1.5-6.6); NEUTROPHILS % (AUTO) 83.9 %; PLT - PLATELET COUNT 83 10^3/uL (130-450)
[2021-05-04 05:24] LABS: CALCIUM 7.9 mg/dL (8.5-10.3); CREATININE 1.1 mg/dL (0.6-1.2); MAGNESIUM 1.9 mg/dL (1.7-2.8); PHOSPHORUS 1.8 mg/dL (2.5-4.6); POTASSIUM 3.8 mmol/L (3.5-5.0)
[2021-05-04] MEDS: CALCIUM CARBONATE CHEW 500 MG TABLET PO SCH ×2 (06:27→10:07)
[2021-05-04] MEDS: CEFEPIME 2 GM in SODIUM CHLORIDE 0.9% MINIBAG 100 ML IV SCH ×2 (08:08→20:05)
[2021-05-04] MEDS: ASPIRIN EC 81 MG TABLET PO SCH (08:09)
[2021-05-04] MEDS: NEUTRA-PHOS 250 MG TABLET PO SCH ×4 (08:09→18:44)
[2021-05-04] MEDS: INSULIN ASPART 300 UNIT/3 ML PEN SUBQ SCH ×4 (08:09→20:49)
[2021-05-04] MEDS: NYSTATIN POWDER 15 GM TOP SCH ×2 (08:10→20:52)
[2021-05-04] MEDS: ENOXAPARIN 40 MG/0.4 ML SYRINGE SUBQ SCH (08:10)
[2021-05-04] MEDS: SODIUM CHLORIDE FLUSH 0.9% 10 ML SYRINGE IVP SCH ×2 (08:11→17:03)
[2021-05-04] MEDS: VANCOMYCIN INJ 1 GM, VANCOMYCIN INJ 500 MG in SODIUM CHLORIDE 0.9% 500 ML IV SCH ×2 (08:11→20:05)
--- NOTE | 2021-05-04 09:09 | PROVIDER PROGRESS NOTE ---
Subjective - Prog Note Date Prog Note Date: 05/04/21 Prog Note Time: 08:58 - Subjective Pt reports feeling: Improved Subjective: Parvez reports feeling slightly better this morning. He is off his Bipap this morning and less dyspneic when talking however he was also sitting up this morning whereas yesterday he was laying down. He is eating well and appetite is intact. He reports the pain is more so in the right calf rather than the foot or ankle. He also reports a prior history of a similar episode and recalls being give antibiotics to cover both gram negative and gram positive bacteria. He does not have a documented history of diabetes however his blood sugars have been elevated while admitted. We obtained an A1c, and depending on the results, he may end up with a new diabetes diagnosis. Current Medications - Current Medications Current Medications: Active Medications Acetaminophen (Acetaminophen 325 Mg Tablet) 650 mg PO Q4HR PRN PRN Reason: Pain 1 to 4 Last Admin: 05/04/21 04:55 Dose: 650 mg Documented by: Aspirin (Aspirin Ec 81 Mg Tablet) 81 mg PO DAILY [facility] Last Admin: 05/04/21 08:09 Dose: 81 mg Documented by: Atorvastatin Calcium (Atorvastatin 40 Mg Tablet) 20 mg PO QPM [facility] Last Admin: 05/03/21 20:30 Dose: 20 mg Documented by: Calcium Carbonate/Glycine (Calcium Carbonate Chew 500 Mg Tablet) 1,250 mg PO Q4H [facility]; Protocol Stop: 05/04/21 11:01 Last Admin: 05/04/21 06:27 Dose: 1,250 mg Documented by: Enoxaparin Sodium (Enoxaparin 40 Mg/0.4 Ml Syringe) 40 mg SUBQ DAILY [facility] Last Admin: 05/04/21 08:10 Dose: Not Given Documented by: Cefepime HCl 2 gm/ Sodium (Chloride) 100 mls @ 200 mls/hr IV Q12H [facility] Last Admin: 05/04/21 08:08 Dose: 200 mls/hr Documented by: Metronidazole (Flagyl 500 Mg/100 Ml) 500 mg in 100 mls @ 100 mls/hr IV Q8H [facility] Last Infusion: 05/04/21 06:02 Dose: Infused Documented by: Vancomycin HCl 1 gm/Vancomycin HCl 500 mg/ Sodium Chloride 500 mls @ 250 mls/hr IV Q12H [facility] Last Admin: 05/04/21 08:11 Dose: 250 mls/hr Documented by: Insulin Aspart (Insulin Aspart 300 Unit/3 Ml Pen) 2 - 10 unit SUBQ 0800,1200,1700,2100 [facility]; Protocol Last Admin: 05/04/21 08:09 Dose: 6 unit Documented by: Insulin Glargine (Insulin Glargine 300 Unit/3 Ml Pen) 10 unit SUBQ QPM [facility] Last Admin: 05/03/21 20:43 Dose: 10 unit Documented by: Morphine Sulfate (Morphine 2 Mg/Ml Carpuject) 2 mg IVP Q2HR PRN PRN Reason: PAIN Last Admin: 05/03/21 19:48 Dose: 2 mg Documented by: Nystatin (Nystatin Powder 15 Gm) 1 applic TOP BID [facility] Last Admin: 05/04/21 08:10 Dose: 1 applic Documented by: Ondansetron HCl (Ondansetron 4 Mg/2 Ml Vial) 4 mg IVP Q6HR PRN PRN Reason: Nausea / Vomiting Oxycodone HCl (Oxycodone 5 Mg Tablet) 5 mg PO Q4HR PRN PRN Reason: Pain 5 to 7 Sodium Chloride (Sodium Chloride Flush 0.9% 10 Ml Syringe) 10 ml IVP PRN PRN PRN Reason: NEEDED PER PROVIDER ORDERS Last Admin: 05/03/21 19:49 Dose: 10 ml Documented by: Sodium Chloride (Sodium Chloride Flush 0.9% 10 Ml Syringe) 10 ml IVP 0100,0900,1700 [facility] Last Admin: 05/04/21 08:11 Dose: 10 ml Documented by: Sodium Phosphate (Neutra-Phos 250 Mg Tablet) 250 mg PO Q2H [facility]; Protocol Stop: 05/04/21 11:01 Last Admin: 05/04/21 08:09 Dose: 250 mg Documented by: Morphine Sulfate [Ms Contin] 15 mg PO TID 03/30/14 Atorvastatin [Lipitor] 20 mg PO QPM 04/19/18 Losartan [Cozaar] 50 mg PO DAILY 04/19/18 Cholecalciferol (Vitamin D3) [Vitamin D3] 2,000 unit PO DAILY 10/18/18 Melatonin 3 mg PO QPM PRN 10/17/19 Hydrocodone/Acetaminophen [Hydrocodone-Acetamin 5-300 mg] 2 tab PO BID PRN 05/03/21 Tamsulosin [Flomax] 0.4 mg PO QPM 05/03/21 bisoproloL fumarate [Bisoprolol Fumarate] 5 mg PO QPM 05/03/21 Objective - Vital Signs/Intake & Output Reviewed Vital Signs: Yes Vital Signs: Vital Signs x48h Temp Pulse Resp BP Pulse Ox 05/04/21 07:49 37.3 C 75 22 122/61 94 05/04/21 07:00 77 23 118/60 92 05/04/21 06:00 37.9 C 79 22 130/62 93 05/04/21 05:00 37 C 84 21 124/64 93 05/04/21 04:55 37.8 C 05/04/21 04:00 83 19 128/65 90 L 05/04/21 03:00 79 22 131/58 H 91 L 05/04/21 02:00 80 23 124/55 L 90 L 05/04/21 01:00 82 22 132/58 H 91 L Intake & Output: Intake & Output 05/01/21 05/02/21 05/03/21 05/04/21 23:59 23:59 23:59 23:59 Intake Total 4425.25 5559.165 1405 Output Total 2632 1710 755 Balance 1793.25 3849.165 650 - Objective General Appearance: positive: No acute distress, Alert Eyes Bilateral: positive: PERRL, EOMI ENT: positive: ENT inspection nml, No signs of dehydration Neck: positive: Nml inspection, No JVD Respiratory: positive: No respiratory distress, Breath sounds nml Cardiovascular: positive: Regular rate & rhythm Abdomen: positive: Non-tender, No organomegaly Skin: positive: Other (Right leg stasis dermatitis and pretibial hyperpigmentation with underlying erythema.) Extremities: positive: Other (Right lower leg/calf is tender to palpation) Neurologic/Psychiatric: positive: Oriented x3 - Lab Results Fish Bones: 05/04/21 04:49 05/04/21 13:55 Other Labs: Lab Results x24hrs 05/04/21 05/04/21 05/04/21 Range/Units 07:49 04:49 04:49 WBC (4.8-10.8) x10^3/uL RBC (4.70-6.10) 10^6/uL Hgb (14.0-18.0) g/dL Hct (42.0-52.0) % MCV (80.0-94.0) fL MCH (27.0-31.0) pg MCHC (32.0-36.0) g/dL RDW (12.0-15.0) % Plt Count (130-450) 10^3/uL MPV (7.4-11.4) fL Neut # (Auto) (1.5-6.6) 10^3/uL Lymph # (Auto) (1.5-3.5) 10^3/uL [place] # (Auto) (0.0-1.0) 10^3/uL Eos # (Auto) (0.0-0.7) 10^3/uL Baso # (Auto) (0.0-0.1) 10^3/uL Absolute Nucleated RBC x10^3/uL Nucleated RBC % /100WBC VBG pH 7.455 H (7.31-7.41) Ionized Calcium 1.08 L (1.15-1.33) mmol/L Sodium 128 L (135-145) mmol/L Potassium 3.8 (3.5-5.0) mmol/L Chloride 98 L (101-111) mmol/L Carbon Dioxide 22 (21-32) mmol/L Anion Gap 8.0 (6-13) BUN 20 (6-20) mg/dL Creatinine 1.1 (0.6-1.2) mg/dL Estimated GFR (MDRD) 66 L (>89) Glucose 222 H (70-100) mg/dL POC Whole Bld Glucose 234 H (70 - 100) mg/dL Calcium 7.9 L (8.5-10.3) mg/dL Phosphorus 1.8 L (2.5-4.6) mg/dL Magnesium 1.9 (1.7-2.8) mg/dL Troponin I High Sens (2.3-19.7) ng/L 05/04/21 05/03/21 05/03/21 Range/Units 04:49 20:31 17:52 WBC 7.0 (4.8-10.8) x10^3/uL RBC 3.30 L (4.70-6.10) 10^6/uL Hgb 10.5 L (14.0-18.0) g/dL Hct 29.3 L (42.0-52.0) % MCV 88.8 (80.0-94.0) fL MCH 31.8 H (27.0-31.0) pg MCHC 35.8 (32.0-36.0) g/dL RDW 15.0 (12.0-15.0) % Plt Count 83 L (130-450) 10^3/uL MPV 9.7 (7.4-11.4) fL Neut # (Auto) 5.9 (1.5-6.6) 10^3/uL Lymph # (Auto) 0.5 L (1.5-3.5) 10^3/uL [place] # (Auto) 0.6 (0.0-1.0) 10^3/uL Eos # (Auto) 0.0 (0.0-0.7) 10^3/uL Baso # (Auto) 0.0 (0.0-0.1) 10^3/uL Absolute Nucleated RBC 0.00 x10^3/uL Nucleated RBC % 0.0 /100WBC VBG pH 7.461 H (7.31-7.41) Ionized Calcium 1.07 L (1.15-1.33) mmol/L Sodium (135-145) mmol/L Potassium (3.5-5.0) mmol/L Chloride (101-111) mmol/L Carbon Dioxide (21-32) mmol/L Anion Gap (6-13) BUN (6-20) mg/dL Creatinine (0.6-1.2) mg/dL Estimated GFR (MDRD) (>89) Glucose (70-100) mg/dL POC Whole Bld Glucose 245 H (70 - 100) mg/dL Calcium (8.5-10.3) mg/dL Phosphorus (2.5-4.6) mg/dL Magnesium (1.7-2.8) mg/dL Troponin I High Sens (2.3-19.7) ng/L 05/03/21 05/03/21 05/03/21 Range/Units 17:52 16:29 12:49 WBC (4.8-10.8) x10^3/uL RBC (4.70-6.10) 10^6/uL Hgb (14.0-18.0) g/dL Hct (42.0-52.0) % MCV (80.0-94.0) fL MCH (27.0-31.0) pg MCHC (32.0-36.0) g/dL RDW (12.0-15.0) % Plt Count (130-450) 10^3/uL MPV (7.4-11.4) fL Neut # (Auto) (1.5-6.6) 10^3/uL Lymph # (Auto) (1.5-3.5) 10^3/uL [place] # (Auto) (0.0-1.0) 10^3/uL Eos # (Auto) (0.0-0.7) 10^3/uL Baso # (Auto) (0.0-0.1) 10^3/uL Absolute Nucleated RBC x10^3/uL Nucleated RBC % /100WBC VBG pH (7.31-7.41) Ionized Calcium (1.15-1.33) mmol/L Sodium (135-145) mmol/L Potassium 4.0 (3.5-5.0) mmol/L Chloride (101-111) mmol/L Carbon Dioxide (21-32) mmol/L Anion Gap (6-13) BUN (6-20) mg/dL Creatinine (0.6-1.2) mg/dL Estimated GFR (MDRD) (>89) Glucose (70-100) mg/dL POC Whole Bld Glucose 282 H 267 H (70 - 100) mg/dL Calcium (8.5-10.3) mg/dL Phosphorus (2.5-4.6) mg/dL Magnesium 1.9 (1.7-2.8) mg/dL Troponin I High Sens (2.3-19.7) ng/L 05/03/21 05/03/21 Range/Units 08:31 08:31 WBC (4.8-10.8) x10^3/uL RBC (4.70-6.10) 10^6/uL Hgb (14.0-18.0) g/dL Hct (42.0-52.0) % MCV (80.0-94.0) fL MCH (27.0-31.0) pg MCHC (32.0-36.0) g/dL RDW (12.0-15.0) % Plt Count (130-450) 10^3/uL MPV (7.4-11.4) fL Neut # (Auto) (1.5-6.6) 10^3/uL Lymph # (Auto) (1.5-3.5) 10^3/uL [place] # (Auto) (0.0-1.0) 10^3/uL Eos # (Auto) (0.0-0.7) 10^3/uL Baso # (Auto) (0.0-0.1) 10^3/uL Absolute Nucleated RBC x10^3/uL Nucleated RBC % /100WBC VBG pH 7.427 H (7.31-7.41) Ionized Calcium 1.03 L (1.15-1.33) mmol/L Sodium (135-145) mmol/L Potassium (3.5-5.0) mmol/L Chloride (101-111) mmol/L Carbon Dioxide (21-32) mmol/L Anion Gap (6-13) BUN (6-20) mg/dL Creatinine (0.6-1.2) mg/dL Estimated GFR (MDRD) (>89) Glucose (70-100) mg/dL POC Whole Bld Glucose (70 - 100) mg/dL Calcium (8.5-10.3) mg/dL Phosphorus (2.5-4.6) mg/dL Magnesium (1.7-2.8) mg/dL Troponin I High Sens 64.7 H* (2.3-19.7) ng/L ABX Reporting Has patient been on IV antibiotics over the past 48 hours?: Yes Sepsis Event Note (H) - Evaluation Current Stage of Sepsis: Sepsis Possible source of Sepsis: positive: Skin/soft tissue - Sepsis Criteria Sepsis Criteria: Recorded Temperature greater than 38.3C or Less than 36C, Recorded Heart Rate greater than 90 bpm, Recorded Respiratory Rate greater than 20, Respiratory: Increasing oxygen requirements, WBC count greater than 12,000 or less than 4000 Assessment/Plan - Problem List (1) Sepsis Impression: Conclusion/Plan: Blood culture from 05/02/2021 grew Streptococcus, unspecified. Blood cultures that were collected on 05/03/2021 are still pending. Still suspect 2/2 Right lower extremity cellulitis. We were unable to obtain the CT scan yesterday due to ongoing poor kidney function, however, his kidney function is much improved today so we will proceed with the CT to rule out osteomyelitis or other potential sources of infection. Patient has a closed ulcer on the ball of the right foot, however, given his pain is more so in the calf rather than the foot, it is unlikely this is the source of infection. Sepsis could be due to infected foot hardware from prior surgery to repair right foot fracture, however, again this is not the location of reported pain so also an unlikely infection source. Today, his WBC has normalized to 7.0 and his temp is 37.3 degree Celsius. IV fluids discontinued today given his lactic acid has normalized and improvement in kidney function. Tylenol prn if fever returns. Continue on vancomycin, cefepime and flagyl until exact organism is known. Vancomycin empirically increased by pharmacy given improvement in renal fu nction. Will switch to appropriate antibiotic coverage if needed once organism is known. Continue with daily blood cultures until cultures result negative. He will need PT at some point to assist in his return to full independence after discharge. Qualifiers: Sepsis type: sepsis due to Streptococcus, unspecified Sepsis acute organ dysfunction status: unspecified Qualified Code(s): A41.9 - Sepsis, unspecified organism (2) Diabetes mellitus Impression: Patient does not have a document history of diabetes but has been told in the past he is borderline. While in the hospital, his blood glucose has been consistently elevated in the mid 200's. A1c is still pending however we are treating him like a diabetic with PM Lantus and sliding scale insulin. Will continue to check blood glucose levels and monitor for hypoglycemia. (3) V-tach Conclusion/Plan: Patient has long-standing history of intermittent V-tach. Blood pressure stable at 122/61. Patient awake and alert. 2/2 septic state could be worsening the V-tach. Continue to treat infection. Troponin trending discontinued yesterday. Magnesium is 1.9 today, up from 1.6 yesterday. Phosphorus has decreased to 1.8 today. Patient recently had an AICD placed on 04/12/21. Reason unknown. Records requested from [facility]. Dr Kidd (supervisor core shop addiction treatment counselor) at [facility] contacted by Dr Welch. He advised the patient be started on Amiodarone, which was started yesterday. Amiodarone gtt completed yesterday. Will switch to 200mg PO, which has been ordered and should be started today. 2D echo performed yesterday. No significant abnormalities noted. Patient in the ICU for continued closer monitoring (4) Acute kidney injury Conclusion/Plan: Likely pre-renal due to dehydration and/or septic state Kidney function is much improved today with a of Cr 1.1 and eGFR 66. IV fluids discontinued given improved renal function and normalized lactic acid. (5) Elevated troponin I level Conclusion/Plan: Possibly 2/2 sepsis and/or Vtach Troponin normalized yesterday and we are no longer trending this. Patient continues to deny chest pain. 2D echo performed yesterday. No significant abnormalities noted. (6) Hyperlipidemia Conclusion/Plan: Continue atorvastatin 20mg po daily. (7) Coronary artery disease Conclusion/Plan: On baby aspirin and atorvastatin 20mg po daily Will hold losartan due to acute kidney injury. Not on a beta-deepa. Reason unknown (8) Chronic pain Conclusion/Plan: Continue Tylenol, oxycodone and dilaudid prn for pain
[2021-05-04] MEDS: AMIODARONE 200 MG TABLET PO SCH (10:07)
[2021-05-04] MEDS ORDERED: IOPAMIDOL-300 100 ML VIAL ONE ×2 (11:55→13:11)
[2021-05-04 12:58] LABS: ESTIMATED AVERAGE GLUCOSE 157 mg/dL (70-100); HEMOGLOBIN A1c% 7.1 % (4.27-6.07)
--- NOTE | 2021-05-04 16:48 | CT Report ---
PROCEDURE: LOWER EXTREMITY W - RT INDICATIONS: Abscess CONTRAST: IV CONTRAST: Isovue 300 ml: 100 PO CONTRAST: *NO PO CONTRAST TECHNIQUE: After the administration of intravenous contrast, 1 mm axial sections acquired of the right foot, wit h coronal and sagittal reformats. COMPARISON: Right ankle x-ray 06/18/2015. FINDINGS: Image quality: Excellent. Bones: No acute fractures or dislocation. There is severe degeneration within the mid foot suggestiv e of Charcot arthropathy. Moderate degeneration also demonstrated at the tibiotalar and subtalar join ts. No definite suspicious bony erosions or periosteal reaction to suggest osteomyelitis. Soft tissues: There is diffuse skin thickening and subcutaneous changes edema most prominent along t he dorsal aspect of the foot. There is also a prominent region of subcutaneous edema and skin thicken ing along the medial plantar aspect of the midfoot. No discrete loculated fluid collections to sugges t an abscess. There is severe fatty atrophy of the visualized muscular fracture. Visualized flexor an d extensor tendons appear intact. IMPRESSION: 1. No discrete abscess collection identified. 2. Diffuse subcutaneous changes edema and skin thickening including a prominent region within the med ial plantar aspect of the midfoot are nonspecific and may reflect cellulitis. 3. No definite CT evidence of osteomyelitis. 4. Severe degeneration in the mid foot suggestive of Charcot arthropathy. Reviewed by: Brandon Borges MD on 05/04/2021 3:47 PM AKST Approved by: Brandon Borges MD on 05/04/2021 3:47 PM [place] Station ID: [id number]
[2021-05-04] MEDS: SODIUM CHLORIDE FLUSH 0.9% 10 ML SYRINGE IVP PRN (20:05)
[2021-05-04] MEDS: ATORVASTATIN 40 MG TABLET PO SCH (20:49)
[2021-05-04] MEDS: INSULIN GLARGINE 300 UNIT/3 ML PEN SUBQ SCH (20:49)
[2021-05-05] MEDS: MORPHINE 2 MG/ML CARPUJECT IVP PRN ×5 (00:55→21:32)
[2021-05-05] MEDS: SODIUM CHLORIDE FLUSH 0.9% 10 ML SYRINGE IVP SCH ×4 (00:55→21:32)
[2021-05-05] MEDS: SODIUM CHLORIDE FLUSH 0.9% 10 ML SYRINGE IVP PRN (03:13)
[2021-05-05] MEDS: metroNIDAZOLE 500 MG/100 ML 500 MG/100 ML BAG IV SCH (04:34)
[2021-05-05 04:45] LABS: BASOPHILS % (AUTO) 0.3 %; EOSINOPHILS % (AUTO) 0.5 %; HCT - HEMATOCRIT 25.8 % (42.0-52.0); HGB - HEMOGLOBIN 9.5 g/dL (14.0-18.0); LYMPHOCYTES # (AUTO) 0.8 10^3/uL (1.5-3.5); LYMPHOCYTES % (AUTO) 13.1 %; MEAN CORPUSCULAR HEMOGLOBIN 32.2 pg (27.0-31.0); MEAN CORPUSCULAR HGB CONC 36.8 g/dL (32.0-36.0); MEAN CORPUSCULAR VOLUME 87.5 fL (80.0-94.0); MEAN PLATELET VOLUME 10.5 fL (7.4-11.4); MONOCYTES # (AUTO) 0.7 10^3/uL (0.0-1.0); MONOCYTES % (AUTO) 10.7 %; NEUTROPHILS # (AUTO) 4.7 10^3/uL (1.5-6.6); NEUTROPHILS % (AUTO) 74.3 %; PLT - PLATELET COUNT 90 10^3/uL (130-450); RED BLOOD COUNT 2.95 10^6/uL (4.70-6.10); RED CELL DISTRIBUTION WIDTH 14.9 % (12.0-15.0); WHITE BLOOD COUNT 6.3 x10^3/uL (4.8-10.8)
[2021-05-05 04:54] LABS: CALCIUM 7.9 mg/dL (8.5-10.3); CREATININE 0.9 mg/dL (0.6-1.2); PHOSPHORUS 1.7 mg/dL (2.5-4.6); POTASSIUM 3.6 mmol/L (3.5-5.0)
[2021-05-05 07:35] LABS: ALBUMIN 2.4 g/dL (3.2-5.5); BILIRUBIN,DIRECT 0.5 mg/dL (0.1-0.5); BILIRUBIN,TOTAL 1.6 mg/dL (0.2-1.0); TOTAL PROTEIN 4.8 g/dL (6.7-8.2)
[2021-05-05] MEDS: CEFEPIME 2 GM in SODIUM CHLORIDE 0.9% MINIBAG 100 ML IV SCH (07:58)
[2021-05-05] MEDS: INSULIN ASPART 300 UNIT/3 ML PEN SUBQ SCH ×4 (07:59→21:33)
[2021-05-05] MEDS: NEUTRA-PHOS 250 MG TABLET PO SCH ×4 (07:59→21:29)
[2021-05-05] MEDS: NYSTATIN POWDER 15 GM TOP SCH ×2 (08:00→21:34)
[2021-05-05] MEDS: ASPIRIN EC 81 MG TABLET PO SCH (08:00)
[2021-05-05] MEDS: AMIODARONE 200 MG TABLET PO SCH (08:00)
[2021-05-05] MEDS: ENOXAPARIN 40 MG/0.4 ML SYRINGE SUBQ SCH (08:01)
[2021-05-05] MEDS: oxyCODONE 5 MG TABLET PO PRN (08:01)
--- NOTE | 2021-05-05 09:21 | PROVIDER PROGRESS NOTE ---
Subjective - Prog Note Date Prog Note Date: 05/05/21 Prog Note Time: 09:17 - Subjective Pt reports feeling: Improved Subjective: Patient reports feeling slightly better. He is up sitting on the side of the bed eating breakfast. Not dyspneic when speaking and he is only wearing his BiPap when sleeping. Still having ongoing right leg/calf pain and he reports feeling very fatigued and that this infection "knocked him on his butt". He reports that a few months ago he developed a callous on the medial plantar surface of right foot, which developed an abscess that needed to be drained. No ulceration or abscess noted on the callous while in the hospital. Blood cultures show Streptococcus C with sensitivity to Ampicillin so we will be starting him on that today. CT scan was done yesterday and did not show any abscess or osteom yelitis. Current Medications - Current Medications Current Medications: Active Medications Acetaminophen (Acetaminophen 325 Mg Tablet) 650 mg PO Q4HR PRN PRN Reason: Pain 1 to 4 Last Admin: 05/04/21 04:55 Dose: 650 mg Documented by: Amiodarone HCl (Amiodarone 200 Mg Tablet) 200 mg PO DAILY [facility] Last Admin: 05/05/21 08:00 Dose: 200 mg Documented by: Aspirin (Aspirin Ec 81 Mg Tablet) 81 mg PO DAILY [facility] Last Admin: 05/05/21 08:00 Dose: 81 mg Documented by: Atorvastatin Calcium (Atorvastatin 40 Mg Tablet) 20 mg PO QPM [facility] Last Admin: 05/04/21 20:49 Dose: 20 mg Documented by: Enoxaparin Sodium (Enoxaparin 40 Mg/0.4 Ml Syringe) 40 mg SUBQ DAILY [facility] Last Admin: 05/05/21 08:01 Dose: Not Given Documented by: Cefepime HCl 2 gm/ Sodium (Chloride) 100 mls @ 200 mls/hr IV Q12H [facility] Last Admin: 05/05/21 07:58 Dose: 200 mls/hr Documented by: Metronidazole (Flagyl 500 Mg/100 Ml) 500 mg in 100 mls @ 100 mls/hr IV Q8H [facility] Last Infusion: 05/05/21 05:35 Dose: Infused Documented by: Vancomycin HCl 1 gm/Vancomycin HCl 500 mg/ Sodium Chloride 500 mls @ 250 mls/hr IV Q12H [facility] Last Infusion: 05/04/21 22:11 Dose: Infused Documented by: Insulin Aspart (Insulin Aspart 300 Unit/3 Ml Pen) 2 - 10 unit SUBQ 0800,1200,1700,2100 [facility]; Protocol Last Admin: 05/05/21 07:59 Dose: 2 unit Documented by: Insulin Glargine (Insulin Glargine 300 Unit/3 Ml Pen) 10 unit SUBQ QPM [facility] Last Admin: 05/04/21 20:49 Dose: 10 unit Documented by: Morphine Sulfate (Morphine 2 Mg/Ml Carpuject) 2 mg IVP Q2HR PRN PRN Reason: PAIN Last Admin: 05/05/21 03:12 Dose: 2 mg Documented by: Nystatin (Nystatin Powder 15 Gm) 1 applic TOP BID [facility] Last Admin: 05/05/21 08:00 Dose: 1 applic Documented by: Ondansetron HCl (Ondansetron 4 Mg/2 Ml Vial) 4 mg IVP Q6HR PRN PRN Reason: Nausea / Vomiting Oxycodone HCl (Oxycodone 5 Mg Tablet) 5 mg PO Q4HR PRN PRN Reason: Pain 5 to 7 Last Admin: 05/05/21 08:01 Dose: 5 mg Documented by: Sodium Chloride (Sodium Chloride Flush 0.9% 10 Ml Syringe) 10 ml IVP PRN PRN PRN Reason: NEEDED PER PROVIDER ORDERS Last Admin: 05/05/21 03:13 Dose: 10 ml Documented by: Sodium Chloride (Sodium Chloride Flush 0.9% 10 Ml Syringe) 10 ml IVP 010 0,0900,1700 [facility] Last Admin: 05/05/21 08:01 Dose: 10 ml Documented by: Sodium Phosphate (Neutra-Phos 250 Mg Tablet) 250 mg PO Q2H [facility]; Protocol Stop: 05/05/21 10:01 Last Admin: 05/05/21 07:59 Dose: 250 mg Documented by: Morphine Sulfate [Ms Contin] 15 mg PO TID 03/30/14 Atorvastatin [Lipitor] 20 mg PO QPM 04/19/18 Losartan [Cozaar] 50 mg PO DAILY 04/19/18 Cholecalciferol (Vitamin D3) [Vitamin D3] 2,000 unit PO DAILY 10/18/18 Melatonin 3 mg PO QPM PRN 10/17/19 Hydrocodone/Acetaminophen [Hydrocodone-Acetamin 5-300 mg] 2 tab PO BID PRN 05/03/21 Tamsulosin [Flomax] 0.4 mg PO QPM 05/03/21 bisoproloL fumarate [Bisoprolol Fumarate] 5 mg PO QPM 05/03/21 Objective - Vital Signs/Intake & Output Reviewed Vital Signs: Yes Vital Signs: Vital Signs x48h Temp Pulse Resp BP Pulse Ox 05/05/21 09:00 75 25 H 118/99 H 93 05/05/21 08:00 37.0 C 84 23 167/79 H 96 05/05/21 07:00 68 19 117/77 96 05/05/21 06:00 70 14 112/56 L 94 05/05/21 05:00 74 17 120/49 L 91 L 05/05/21 04:00 37.3 C 73 14 107/50 L 96 05/05/21 03:00 77 24 128/52 L 93 05/05/21 02:00 76 17 132/63 H 94 Intake & Output: Intake & Output 05/02/21 05/03/21 05/04/21 05/05/21 23:59 23:59 23:59 23:59 Intake Total 4425.25 5559.165 4570 660 Output Total 2632 1710 3270 1140 Balance 1793.25 3849.165 1300 -480 - Objective General Appearance: positive: No acute distress Eyes Bilateral: positive: PERRL, EOMI Neck: positive: Thyroid nml, No JVD Respiratory: positive: Chest non-tender, No respiratory distress Skin: positive: Other (Hemosiderin deposits, stasis dermatitis, pretibial hyperpigmentation with underlying erythema) Extremities: positive: Other (Right leg calf tender to palpation, warm and edematous.) Neurologic/Psychiatric: positive: Oriented x3 - Lab Results Fish Bones: 05/05/21 04:36 05/05/21 04:36 Other Labs: Lab Results x24hrs 05/05/21 05/05/21 05/05/21 Range/Units 07:41 04:36 04:36 WBC (4.8-10.8) x10^3/uL RBC (4.70-6.10) 10^6/uL Hgb (14.0-18.0) g/dL Hct (42.0-52.0) % MCV (80.0-94.0) fL MCH (27.0-31.0) pg MCHC (32.0-36.0) g/dL RDW (12.0-15.0) % Plt Count (130-450) 10^3/uL MPV (7.4-11.4) fL Neut # (Auto) (1.5-6.6) 10^3/uL Lymph # (Auto) (1.5-3.5) 10^3/uL [place] # (Auto) (0.0-1.0) 10^3/uL Eos # (Auto) (0.0-0.7) 10^3/uL Baso # (Auto) (0.0-0.1) 10^3/uL Absolute Nucleated RBC x10^3/uL Nucleated RBC % /100WBC Sodium 130 L (135-145) mmol/L Potassium 3.6 (3.5-5.0) mmol/L Chloride 100 L (101-111) mmol/L Carbon Dioxide 23 (21-32) mmol/L Anion Gap 7.0 (6-13) BUN 18 (6-20) mg/dL Creatinine 0.9 (0.6-1.2) mg/dL Estimated GFR (MDRD) 83 L (>89) Glucose 189 H (70-100) mg/dL POC Whole Bld Glucose 168 H (70 - 100) mg/dL Estimat Average Glucose (70-100) mg/dL Hemoglobin A1c % (4.27-6.07) % Calcium 7.9 L (8.5-10.3) mg/dL Phosphorus 1.7 L (2.5-4.6) mg/dL Magnesium 2.0 (1.7-2.8) mg/dL Total Bilirubin 1.6 H (0.2-1.0) mg/dL Direct Bilirubin 0.5 (0.1-0.5) mg/dL AST 61 H (10-42) IU/L ALT 41 (10-60) IU/L Alkaline Phosphatase 37 L (42-121) IU/L Total Protein 4.8 L (6.7-8.2) g/dL Albumin 2.4 L (3.2-5.5) g/dL Globulin 2.4 (2.1-4.2) g/dL 05/05/21 05/04/21 05/04/21 Range/Units 04:36 20:20 16:32 WBC 6.3 (4.8-10.8) x10^3/uL RBC 2.95 L (4.70-6.10) 10^6/uL Hgb 9.5 L (14.0-18.0) g/dL Hct 25.8 L (42.0-52.0) % MCV 87.5 (80.0-94.0) fL MCH 32.2 H (27.0-31.0) pg MCHC 36.8 H (32.0-36.0) g/dL RDW 14.9 (12.0-15.0) % Plt Count 90 L (130-450) 10^3/uL MPV 10.5 (7.4-11.4) fL Neut # (Auto) 4.7 (1.5-6.6) 10^3/uL Lymph # (Auto) 0.8 L (1.5-3.5) 10^3/uL [place] # (Auto) 0.7 (0.0-1.0) 10^3/uL Eos # (Auto) 0.0 (0.0-0.7) 10^3/uL Baso # (Auto) 0.0 (0.0-0.1) 10^3/uL Absolute Nucleated RBC 0.00 x10^3/uL Nucleated RBC % 0.0 /100WBC Sodium (135-145) mmol/L Potassium (3.5-5.0) mmol/L Chloride (101-111) mmol/L Carbon Dioxide (21-32) mmol/L Anion Gap (6-13) BUN (6-20) mg/dL Creatinine (0.6-1.2) mg/dL Estimated GFR (MDRD) (>89) Glucose (70-100) mg/dL POC Whole Bld Glucose 250 H 207 H (70 - 100) mg/dL Estimat Average Glucose (70-100) mg/dL Hemoglobin A1c % (4.27-6.07) % Calcium (8.5-10.3) mg/dL Phosphorus (2.5-4.6) mg/dL Magnesium (1.7-2.8) mg/dL Total Bilirubin (0.2-1.0) mg/dL Direct Bilirubin (0.1-0.5) mg/dL AST (10-42) IU/L ALT (10-60) IU/L Alkaline Phosphatase (42-121) IU/L Total Protein (6.7-8.2) g/dL Albumin (3.2-5.5) g/dL Globulin (2.1-4.2) g/dL 05/04/21 05/04/21 05/04/21 Range/Units 13:55 13:55 13:55 WBC (4.8-10.8) x10^3/uL RBC (4.70-6.10) 10^6/uL Hgb (14.0-18.0) g/dL Hct (42.0-52.0) % MCV (80.0-94.0) fL MCH (27.0-31.0) pg MCHC (32.0-36.0) g/dL RDW (12.0-15.0) % Plt Count (130-450) 10^3/uL MPV (7.4-11.4) fL Neut # (Auto) (1.5-6.6) 10^3/uL Lymph # (Auto) (1.5-3.5) 10^3/uL [place] # (Auto) (0.0-1.0) 10^3/uL Eos # (Auto) (0.0-0.7) 10^3/uL Baso # (Auto) (0.0-0.1) 10^3/uL Absolute Nucleated RBC x10^3/uL Nucleated RBC % /100WBC Sodium (135-145) mmol/L Potassium 4.0 (3.5-5.0) mmol/L Chloride (101-111) mmol/L Carbon Dioxide (21-32) mmol/L Anion Gap (6-13) BUN (6-20) mg/dL Creatinine (0.6-1.2) mg/dL Estimated GFR (MDRD) (>89) Glucose (70-100) mg/dL POC Whole Bld Glucose (70 - 100) mg/dL Estimat Average Glucose (70-100) mg/dL Hemoglobin A1c % (4.27-6.07) % Calcium 8.0 L (8.5-10.3) mg/dL Phosphorus 2.1 L (2.5-4.6) mg/dL Magnesium (1.7-2.8) mg/dL Total Bilirubin (0.2-1.0) mg/dL Direct Bilirubin (0.1-0.5) mg/dL AST (10-42) IU/L ALT (10-60) IU/L Alkaline Phosphatase (42-121) IU/L Total Protein (6.7-8.2) g/dL Albumin (3.2-5.5) g/dL Globulin (2.1-4.2) g/dL 05/04/21 05/04/21 Range/Units 12:13 04:49 WBC (4.8-10.8) x10^3/uL RBC (4.70-6.10) 10^6/uL Hgb (14.0-18.0) g/dL Hct (42.0-52.0) % MCV (80.0-94.0) fL MCH (27.0-31.0) pg MCHC (32.0-36.0) g/dL RDW (12.0-15.0) % Plt Count (130-450) 10^3/uL MPV (7.4-11.4) fL Neut # (Auto) (1.5-6.6) 10^3/uL Lymph # (Auto) (1.5-3.5) 10^3/uL [place] # (Auto) (0.0-1.0) 10^3/uL Eos # (Auto) (0.0-0.7) 10^3/uL Baso # (Auto) (0.0-0.1) 10^3/uL Absolute Nucleated RBC x10^3/uL Nucleated RBC % /100WBC Sodium (135-145) mmol/L Potassium (3.5-5.0) mmol/L Chloride (101-111) mmol/L Carbon Dioxide (21-32) mmol/L Anion Gap (6-13) BUN (6-20) mg/dL Creatinine (0.6-1.2) mg/dL Estimated GFR (MDRD) (>89) Glucose (70-100) mg/dL POC Whole Bld Glucose 260 H (70 - 100) mg/dL Estimat Average Glucose 157 H (70-100) mg/dL Hemoglobin A1c % 7.1 H (4.27-6.07) % Calcium (8.5-10.3) mg/dL Phosphorus (2.5-4.6) mg/dL Magnesium (1.7-2.8) mg/dL Total Bilirubin (0.2-1.0) mg/dL Direct Bilirubin (0.1-0.5) mg/dL AST (10-42) IU/L ALT (10-60) IU/L Alkaline Phosphatase (42-121) IU/L Total Protein (6.7-8.2) g/dL Albumin (3.2-5.5) g/dL Globulin (2.1-4.2) g/dL - Diagnostic Imaging Diagnostic Imaging Results: positive: Final report reviewed ABX Reporting Has patient been on IV antibiotics over the past 48 hours?: Yes Sepsis Event Note (H) - Evaluation Current Stage of Sepsis: Sepsis Possible source of Sepsis: positive: Skin/soft tissue - Sepsis Criteria Sepsis Criteria: Recorded Temperature greater than 38.3C or Less than 36C, Recorded Heart Rate greater than 90 bpm, Recorded Respiratory Rate greater than 20, Respiratory: Increasing oxygen requirements, WBC count greater than 12,000 or less than 4000 Assessment/Plan - Problem List (1) Sepsis Impression: Impression: Conclusion/Plan: Blood culture from 05/02/2021 grew Streptococcus, unspecified. Blood cultures from 05/03/2021 show Streptococcus C with sensitivities to Ampicillin. Still suspect 2/2 Right lower extremity cellulitis. CT scan from 05/03/2021 does not show any abscess, bone infection or hardware infection. Patient has a closed ulcer on the medial plantar aspect of the right foot that he reports has been infected in the past that required I&D. No signs of active infection and no ulceration. Today, his WBC has normalized to 7.0 and his temp is 37.3 degree Celsius. IV fluids discontinued today given his lactic acid has normalized and improvement in kidney function. Tylenol prn if fever returns. Stop Vancomycin and Flagyl. Given there is sensitivity to Ampillicin, we will start him on therapy today. Continue with daily blood cultures until cultures result negative. He will need PT at some point to assist in his return to full independence after discharge. We discussed whether he is able to take care of himself if he were to be discharged home in the next few days and he does not feel capable. He also states his is unable to care for him either and so we discussed potentially going to a SNF facility for rehab - he is not a fan of this idea but also understands that he will need help in his recovery. Qualifiers: Sepsis type: sepsis due to Streptococcus, unspecified Sepsis acute organ dysfunction status: unspecified Qualified Code(s): A41.9 - Sepsis, unspecified organism (2) Diabetes mellitus Impression: Patient does not have a document history of diabetes but has been told in the past he is borderline. While in the hospital, his blood glucose has been consistently elevated in the mid 200's. A1c came back at 7.1% and we have started him on PM Lantus and sliding scale insulin. Will continue to check blood glucose levels and monitor for hypoglycemia. (3) V-tach Conclusion/Plan: Patient has long-standing history of intermittent V-tach. Blood pressure elevated today at 167/79. Patient awake and alert. We will be reinstating his at-home cardiac medications today, which hopefully bring his blood pressure down. We will continue to monitor. No additional runs of V-tach while admitted. 2/2 septic state could be worsening the V-tach. Continue to treat infection. Troponin trending discontinued 2 days ago. Magnesium is 2.0 today. Phosphorus has decreased further to 1.7 today. Patient recently had an AICD placed on 04/12/21. Reason unknown. Records requested from [facility]. Dr Kidd (elementary librarian supervisor ornamental ironworking) at [facility] contacted by Dr Welch. He advised the patient be started on Amiodarone, which was started yesterday. Amiodarone gtt completed 2 days ago. Now on 200mg PO. 2D echo performed yesterday. No significant abnormalities noted. Patient in the ICU for continued closer monitoring (4) Acute kidney injury Conclusion/Plan: Likely pre-renal due to dehydration and/or septic state Kidney function continues to improve with a of Cr 0.9 and eGFR 83 today. IV fluids discontinued given improved renal function and normalized lactic acid. (5) Elevated troponin I level Conclusion/Plan: Possibly 2/2 sepsis and/or Vtach Troponin no longer being monitored as it normalized a few days ago. Patient continues to deny chest pain. 2D echo performed yesterday. No significant abnormalities noted. (6) Hyperlipidemia Conclusion/Plan: Continue atorvastatin 20mg po daily. (7) Coronary artery disease Conclusion/Plan: On baby aspirin and atorvastatin 20mg po daily We will resume his losartan and other home medications today. Not on a beta-deepa. Reason unknown (8) Chronic pain Conclusion/Plan: Continue Tylenol, oxycodone and dilaudid prn for pain
[2021-05-05] MEDS: VANCOMYCIN INJ 1 GM, VANCOMYCIN INJ 500 MG in SODIUM CHLORIDE 0.9% 500 ML IV SCH (09:46)
[2021-05-05] MEDS: cefTRIAXone 2 GM in SODIUM CHLORIDE 0.9% MINIBAG 100 ML IV SCH (11:56)
[2021-05-05] MEDS: ATORVASTATIN 40 MG TABLET PO SCH (21:28)
[2021-05-05] MEDS: INSULIN GLARGINE 300 UNIT/3 ML PEN SUBQ SCH (21:32)
[2021-05-06] MEDS: ACETAMINOPHEN 325 MG TABLET PO PRN (01:31)
[2021-05-06 05:14] LABS: BASOPHILS % (AUTO) 0.4 %; EOSINOPHILS # (AUTO) 0.1 10^3/uL (0.0-0.7); EOSINOPHILS % (AUTO) 0.7 %; HCT - HEMATOCRIT 27.4 % (42.0-52.0); HGB - HEMOGLOBIN 9.7 g/dL (14.0-18.0); LYMPHOCYTES # (AUTO) 1.6 10^3/uL (1.5-3.5); LYMPHOCYTES % (AUTO) 17.1 %; MEAN CORPUSCULAR HEMOGLOBIN 31.1 pg (27.0-31.0); MEAN CORPUSCULAR HGB CONC 35.4 g/dL (32.0-36.0); MEAN CORPUSCULAR VOLUME 87.8 fL (80.0-94.0); MEAN PLATELET VOLUME 10.2 fL (7.4-11.4); MONOCYTES % (AUTO) 10.4 %; NEUTROPHILS # (AUTO) 6.4 10^3/uL (1.5-6.6); NEUTROPHILS % (AUTO) 67.8 %; PLT - PLATELET COUNT 108 10^3/uL (130-450); RED BLOOD COUNT 3.12 10^6/uL (4.70-6.10); RED CELL DISTRIBUTION WIDTH 15.3 % (12.0-15.0); WHITE BLOOD COUNT 9.4 x10^3/uL (4.8-10.8)
[2021-05-06 05:16] LABS: CALCIUM 8.1 mg/dL (8.5-10.3); POTASSIUM 3.3 mmol/L (3.5-5.0)
[2021-05-06 05:40] LABS: MAGNESIUM 2.1 mg/dL (1.7-2.8); PHOSPHORUS 2.5 mg/dL (2.5-4.6)
[2021-05-06] MEDS: POTASSIUM CHLORIDE 20 MEQ TABLET PO SCH ×4 (06:39→21:28)
[2021-05-06] MEDS: MORPHINE 2 MG/ML CARPUJECT IVP PRN (06:39)
[2021-05-06] MEDS: SODIUM CHLORIDE FLUSH 0.9% 10 ML SYRINGE IVP PRN (06:39)
[2021-05-06] MEDS ORDERED: SODIUM CHLORIDE 0.9% 500 ML IV ONE (07:45)
[2021-05-06] MEDS: INSULIN ASPART 300 UNIT/3 ML PEN SUBQ SCH ×7 (08:16→21:53)
[2021-05-06] MEDS: NEUTRA-PHOS 250 MG TABLET PO SCH ×2 (08:35→12:00)
[2021-05-06] MEDS: AMIODARONE 200 MG TABLET PO SCH (08:37)
[2021-05-06] MEDS: ASPIRIN EC 81 MG TABLET PO SCH (08:37)
[2021-05-06] MEDS: DOCUSATE SODIUM 250 MG CAPSULE PO SCH (08:39)
[2021-05-06] MEDS: CHOLECALCIFEROL 25 MCG TABLET PO SCH (08:39)
[2021-05-06] MEDS: FUROSEMIDE 20 MG TABLET PO SCH (08:40)
[2021-05-06] MEDS: MORPHINE ER 15 MG TABLET PO SCH ×2 (08:40→21:29)
[2021-05-06] MEDS: LOSARTAN 50 MG TABLET PO SCH (08:40)
[2021-05-06] MEDS: polyethylene glycoL 3350 17 GM PACKET PO SCH (08:41)
[2021-05-06] MEDS: SENNA 8.6 MG TABLET PO SCH (08:42)
[2021-05-06] MEDS: SODIUM CHLORIDE FLUSH 0.9% 10 ML SYRINGE IVP SCH ×2 (08:43→16:56)
[2021-05-06] MEDS: ENOXAPARIN 40 MG/0.4 ML SYRINGE SUBQ SCH (08:46)
[2021-05-06] MEDS: cefTRIAXone 2 GM in SODIUM CHLORIDE 0.9% MINIBAG 100 ML IV SCH (09:00)
--- NOTE | 2021-05-06 09:01 | PROVIDER PROGRESS NOTE ---
Subjective - Prog Note Date Prog Note Date: 05/06/21 Prog Note Time: 08:28 - Subjective Pt reports feeling: Improved Subjective: Parvez reports feeling better today with a mild decrease in his right calf pain. This morning he had one low blood pressure reading of 94/77 at 7am however at 8am his blood pressure was back up to 145/70. His blood cultures from 05/03 show both beta hematologic Streptococcus C and Streptococcus dysgalac. We have switched him to Ceftriaxone for better antibiotic coverage. His blood sugars are still running slightly high (152 this morning) and we are adjusting his sliding scale insulin and lantus as needed. His renal function slightly decreased today and yesterday he had a high urine output. His potassium decreased slightly so we have started him on appropriate replacement. He will also be moving to the general inpatient floor and out of the ICU today as his status has improved over the last few days. PT evaluated him yesterday and ultimately he is not ready to go home just yet. He is still weak and has trouble ambulating on his own so he will stay in the hospital for a few more days. We also discussed with him how he would like to proceed with the muñoz catheter and he is not comfortable having it removed right now but he is also hesitant to keep it in and have a urologist in [place] remove it so we are letting him think about how he would like to proceed. Current Medications - Current Medications Current Medications: Active Medications Acetaminophen (Acetaminophen 325 Mg Tablet) 650 mg PO Q4HR PRN PRN Reason: Pain 1 to 4 Last Admin: 05/06/21 01:31 Dose: 650 mg Documented by: Amiodarone HCl (Amiodarone 200 Mg Tablet) 200 mg PO DAILY [facility] Last Admin: 05/05/21 08:00 Dose: 200 mg Documented by: Aspirin (Aspirin Ec 81 Mg Tablet) 81 mg PO DAILY [facility] Last Admin: 05/05/21 08:00 Dose: 81 mg Documented by: Atorvastatin Calcium (Atorvastatin 10 Mg Tablet) 20 mg PO QPM [facility] Cholecalciferol (Cholecalciferol 25 Mcg Tablet) 50 mcg PO DAILY [facility] Docusate Sodium (Docusate Sodium 250 Mg Capsule) 250 - 500 mg PO DAILY [facility] Enoxaparin Sodium (Enoxaparin 40 Mg/0.4 Ml Syringe) 40 mg SUBQ DAILY [facility] Last Admin: 05/05/21 08:01 Dose: Not Given Documented by: Furosemide (Furosemide 20 Mg Tablet) 20 mg PO DAILY [facility] Ceftriaxone Sodium 2 gm/ (Sodium Chloride) 100 mls @ 200 mls/hr IV DAILY [facility] Last Infusion: 05/05/21 12:26 Dose: Infused Documented by: Insulin Aspart (Insulin Aspart 300 Unit/3 Ml Pen) 3 - 11 unit SUBQ 0800,1200,1700,2100 [facility]; Protocol Last Admin: 05/06/21 08:16 Dose: Not Given Documented by: Insulin Aspart (Insulin Aspart 300 Unit/3 Ml Pen) 5 unit SUBQ TIDWM [facility]; Protocol Insulin Glargine (Insulin Glargine 300 Unit/3 Ml Pen) 10 unit SUBQ QPM [facility] Losartan Potassium (Losartan 50 Mg Tablet) 50 mg PO DAILY [facility] Morphine Sulfate (Morphine 2 Mg/Ml Carpuject) 2 mg IVP Q2HR PRN PRN Reason: PAIN Stop: 05/06/21 13:00 Last Admin: 05/06/21 06:39 Dose: 2 mg Documented by: Morphine Sulfate (Morphine Er 15 Mg Tablet) 15 mg PO BID [facility] Nystatin (Nystatin Powder 15 Gm) 1 applic TOP BID [facility] Last Admin: 05/05/21 21:34 Dose: 1 applic Documented by: Ondansetron HCl (Ondansetron 4 Mg/2 Ml Vial) 4 mg IVP Q6HR PRN PRN Reason: Nausea / Vomiting Oxycodone HCl (Oxycodone 5 Mg Tablet) 5 mg PO Q4HR PRN PRN Reason: Pain 5 to 7 Last Admin: 05/05/21 08:01 Dose: 5 mg Documented by: Polyethylene Glycol (Polyethylene Glycol 3350 17 Gm Packet) 17 gm PO DAILY [facility] Potassium Chloride (Potassium Chloride 20 Meq Tablet) 40 meq PO BID [facility] Stop: 05/07/21 09:01 Senna (Senna 8.6 Mg Tablet) 8.6 - 17.2 mg PO DAILY [facility] Sodium Chloride (Sodium Chloride Flush 0.9% 10 Ml Syringe) 10 ml IVP PRN PRN PRN Reason: NEEDED PER PROVIDER ORDERS Last Admin: 05/06/21 06:39 Dose: 10 ml Documented by: Sodium Chloride (Sodium Chloride Flush 0.9% 10 Ml Syringe) 10 ml IVP 0100,0900,1700 [facility] Last Admin: 05/05/21 21:32 Dose: 10 ml Documented by: Sodium Phosphate (Neutra-Phos 250 Mg Tablet) 250 mg PO Q2H [facility]; Protocol Stop: 05/06/21 10:01 Tamsulosin HCl (Tamsulosin 0.4 Mg Capsule) 0.4 mg PO QPM [facility] Morphine Sulfate [Ms Contin] 15 mg PO TID 03/30/14 Atorvastatin [Lipitor] 20 mg PO QPM 04/19/18 Losartan [Cozaar] 50 mg PO DAILY 04/19/18 Cholecalciferol (Vitamin D3) [Vitamin D3] 2,000 unit PO DAILY 10/18/18 Melatonin 3 mg PO QPM PRN 10/17/19 Hydrocodone/Acetaminophen [Hydrocodone-Acetamin 5-300 mg] 2 tab PO BID PRN 05/03/21 Tamsulosin [Flomax] 0.4 mg PO QPM 05/03/21 bisoproloL fumarate [Bisoprolol Fumarate] 5 mg PO QPM 05/03/21 Objective - Vital Signs/Intake & Output Reviewed Vital Signs: Yes Vital Signs: Vital Signs x48h Temp Pulse Resp BP Pulse Ox 05/06/21 08:00 37.0 C 87 21 145/70 H 94 05/06/21 07:00 36.6 C 73 16 94/77 95 05/06/21 06:00 69 14 138/67 H 94 05/06/21 05:00 67 14 138/63 H 96 05/06/21 04:00 68 20 113/52 L 92 05/06/21 03:00 69 20 134/55 H 91 L 05/06/21 02:00 71 16 97/61 93 05/06/21 01:00 81 19 130/56 L 93 Intake & Output: Intake & Output 05/03/21 05/04/21 05/05/21 05/06/21 23:59 23:59 23:59 23:59 Intake Total 5559.165 4570 2910 400 Output Total 1710 3270 2320 2215 Balance 3849.165 0400 302 -3877 - Objective General Appearance: positive: No acute distress Eyes Bilateral: positive: PERRL, EOMI ENT: positive: ENT inspection nml Neck: positive: Nml inspection Respiratory: positive: Chest non-tender, No respiratory distress Abdomen: positive: Non-tender, No organomegaly Skin: positive: Other (Hemodeserin deposits, stasis dermatitis, hyperpigementation with underlying erythema of right calf) Neurologic/Psychiatric: positive: Oriented x3 - Lab Results Fish Bones: 05/06/21 04:30 05/06/21 04:30 Other Labs: Lab Results x24hrs 05/06/21 05/06/21 05/06/21 Range/Units 07:29 04:30 04:30 WBC (4.8-10.8) x10^3/uL RBC (4.70-6.10) 10^6/uL Hgb (14.0-18.0) g/dL Hct (42.0-52.0) % MCV (80.0-94.0) fL MCH (27.0-31.0) pg MCHC (32.0-36.0) g/dL RDW (12.0-15.0) % Plt Count (130-450) 10^3/uL MPV (7.4-11.4) fL Neut # (Auto) (1.5-6.6) 10^3/uL Lymph # (Auto) (1.5-3.5) 10^3/uL Lucas # (Auto) (0.0-1.0) 10^3/uL Eos # (Auto) (0.0-0.7) 10^3/uL Baso # (Auto) (0.0-0.1) 10^3/uL Absolute Nucleated RBC x10^3/uL Nucleated RBC % /100WBC Sodium 132 L (135-145) mmol/L Potassium 3.3 L (3.5-5.0) mmol/L Chloride 99 L (101-111) mmol/L Carbon Dioxide 25 (21-32) mmol/L Anion Gap 8.0 (6-13) BUN 16 (6-20) mg/dL Creatinine 1.0 (0.6-1.2) mg/dL Estimated GFR (MDRD) 74 L (>89) Glucose 168 H (70-100) mg/dL POC Whole Bld Glucose 152 H (70 - 100) mg/dL Calcium 8.1 L (8.5-10.3) mg/dL Phosphorus 2.5 (2.5-4.6) mg/dL Magnesium 2.1 (1.7-2.8) mg/dL 1205/05/21 05/05/21 Range/Units 04:30 20:51 17:10 WBC 9.4 (4.8-10.8) x10^3/uL RBC 3.12 L (4.70-6.10) 10^6/uL Hgb 9.7 L (14.0-18.0) g/dL Hct 27.4 L (42.0-52.0) % MCV 87.8 (80.0-94.0) fL MCH 31.1 H (27.0-31.0) pg MCHC 35.4 (32.0-36.0) g/dL RDW 15.3 H (12.0-15.0) % Plt Count 108 L (130-450) 10^3/uL MPV 10.2 (7.4-11.4) fL Neut # (Auto) 6.4 (1.5-6.6) 10^3/uL Lymph # (Auto) 1.6 (1.5-3.5) 10^3/uL Lucas # (Auto) 1.0 (0.0-1.0) 10^3/uL Eos # (Auto) 0.1 (0.0-0.7) 10^3/uL Baso # (Auto) 0.0 (0.0-0.1) 10^3/uL Absolute Nucleated RBC 0.00 x10^3/uL Nucleated RBC % 0.0 /100WBC Sodium (135-145) mmol/L Potassium (3.5-5.0) mmol/L Chloride (101-111) mmol/L Carbon Dioxide (21-32) mmol/L Anion Gap (6-13) BUN (6-20) mg/dL Creatinine (0.6-1.2) mg/dL Estimated GFR (MDRD) (>89) Glucose (70-100) mg/dL POC Whole Bld Glucose 226 H 238 H (70 - 100) mg/dL Calcium (8.5-10.3) mg/dL Phosphorus (2.5-4.6) mg/dL Magnesium (1.7-2.8) mg/dL 05/05/21 05/05/21 05/05/21 Range/Units 15:06 15:06 11:31 WBC (4.8-10.8) x10^3/uL RBC (4.70-6.10) 10^6/uL Hgb (14.0-18.0) g/dL Hct (42.0-52.0) % MCV (80.0-94.0) fL MCH (27.0-31.0) pg MCHC (32.0-36.0) g/dL RDW (12.0-15.0) % Plt Count (130-450) 10^3/uL MPV (7.4-11.4) fL Neut # (Auto) (1.5-6.6) 10^3/uL Lymph # (Auto) (1.5-3.5) 10^3/uL Lucas # (Auto) (0.0-1.0) 10^3/uL Eos # (Auto) (0.0-0.7) 10^3/uL Baso # (Auto) (0.0-0.1) 10^3/uL Absolute Nucleated RBC x10^3/uL Nucleated RBC % /100WBC Sodium (135-145) mmol/L Potassium 3.7 (3.5-5.0) mmol/L Chloride (101-111) mmol/L Carbon Dioxide (21-32) mmol/L Anion Gap (6-13) BUN (6-20) mg/dL Creatinine (0.6-1.2) mg/dL Estimated GFR (MDRD) (>89) Glucose (70-100) mg/dL POC Whole Bld Glucose 221 H (70 - 100) mg/dL Calcium (8.5-10.3) mg/dL Phosphorus 1.7 L (2.5-4.6) mg/dL Magnesium (1.7-2.8) mg/dL ABX Reporting Has patient been on IV antibiotics over the past 48 hours?: Yes Sepsis Event Note (H) - Evaluation Current Stage of Sepsis: Sepsis Possible source of Sepsis: positive: Skin/soft tissue - Sepsis Criteria Sepsis Criteria: Recorded Temperature greater than 38.3C or Less than 36C, Recorded Heart Rate greater than 90 bpm, Recorded Respiratory Rate greater than 20, Respiratory: Increasing oxygen requirements, WBC count greater than 12,000 or less than 4000 Assessment/Plan - Problem List (1) Sepsis Impression: Conclusion/Plan: Blood culture from 05/02/2021 grew Streptococcus, unspecified. Blood cultures from 05/03/2021 show Streptococcus C with sensitivities to Ampicillin. Additional blood cultures show Streptococcus dysgalac so we have switched him from Ampicillin to Ceftriaxone. Still suspect 2/2 right lower extremity cellulitis. CT scan from 05/03/2021 does not show any abscess, bone infection or hardware infection. Patient has a closed ulcer on the medial plantar aspect of the right foot that he reports has been infected in the past that required I&D. No signs of active infection or ulceration. Today, his WBC has increased to 9.4 and his temp is degree Celsius. Still holding off on IV fluids especially considering his high urine output yesterday. Tylenol prn if fever returns. Continue with daily blood cultures until cultures result negative. He will need PT at some point to assist in his return to full independence after discharge. Continue working on strength in order to prepare for discharge home. Qualifiers: Sepsis type: sepsis due to Streptococcus, unspecified Sepsis acute organ dysfunction status: unspecified Qualified Code(s): A41.9 - Sepsis, unspecified organism (2) Diabetes mellitus Impression: Patient does not have a document history of diabetes but has been told in the past he is borderline. While in the hospital, his blood glucose has been consistently elevated in the mid 200's. A1c came back at 7.1% and we have started him on PM Lantus and sliding scale insulin. His blood glucose is still slightly elevated at 152 today and we will be adding 5 units of Humalog with nutrition. We will continue to adjust his Lantus and sliding scale insulin as needed. Will continue to check blood glucose levels and monitor for hypoglycemia. (3) V-tach Conclusion/Plan: Patient has long-standing history of intermittent V-tach. One low blood pressure reading at 7am this morning of 94/77, however, at 8am his blood pressure was back up to 145/70. We will continue to monitor. No additional runs of V-tach while admitted. 2/2 septic state could be worsening the V-tach. Continue to treat infection. Magnesium is 2.1 today. Phosphorus has normalized to 2.5. He now is slightly hypokalemic and we have started him on potassium replacement. Patient recently had an AICD placed on 04/12/21. Reason unknown. Records requested from Ashtyn Harrison. Dr Kidd (quality management nurse extrusion supervisor) at [facility] contacted by Dr Welch. He advised the patient be started on Amiodarone, which was started yesterday. Amiodarone gtt completed 2 days ago. Now on 200mg PO. No significant abnormalities noted on 2D echo. He has been moved out of the ICU and onto the general inpatient floor. (4) Acute kidney injury Conclusion/Plan: Likely pre-renal due to dehydration and/or septic state Kidney function continues to improve with a of Cr 1.0 and eGFR 74 today. IV fluids discontinued given improved renal function and normalized lactic acid. (5) Elevated troponin I level Conclusion/Plan: Possibly 2/2 sepsis and/or Vtach Troponin no longer being monitored as it normalized a few days ago. Patient continues to deny chest pain. No significant abnormalities noted on 2D echo. (6) Hyperlipidemia Conclusion/Plan: Continue atorvastatin 20mg po daily. (7) Coronary artery disease Conclusion/Plan: On baby aspirin and atorvastatin 20mg po daily We have resumed his losartan and other home medications. Since he had an episode of low blood pressure this morning, we have instructed nursing to not administer the losartan if systolic BP < 110. Not on a beta-deepa. Reason unknown (8) Chronic pain Conclusion/Plan: We have resumed his at home MS cotin XR bid for better management. We have stopped dilaudid but he may continue with Tylenol and oxycodone prn for breakthrough pain.
[2021-05-06] MEDS: NYSTATIN POWDER 15 GM TOP SCH ×2 (11:29→21:28)
[2021-05-06] MEDS: oxyCODONE 5 MG TABLET PO PRN ×3 (14:00→21:33)
[2021-05-06] MEDS ORDERED: INSULIN GLARGINE 300 UNIT/3 ML PEN SUBQ SCH (21:00)
[2021-05-06] MEDS ORDERED: ATORVASTATIN 10 MG TABLET PO SCH (21:00)
[2021-05-06] MEDS ORDERED: TAMSULOSIN 0.4 MG CAPSULE PO SCH (21:00)
[2021-05-07] MEDS: SODIUM CHLORIDE FLUSH 0.9% 10 ML SYRINGE IVP SCH ×2 (00:48→12:33)
[2021-05-07] MEDS: oxyCODONE 5 MG TABLET PO PRN (03:53)
[2021-05-07 04:44] LABS: CALCIUM, IONIZED 1.06 mmol/L (1.15-1.33); VBG PH 7.432 (7.31-7.41)
[2021-05-07 04:46] LABS: BASOPHILS # (AUTO) 0.1 10^3/uL (0.0-0.1); BASOPHILS % (AUTO) 0.5 %; EOSINOPHILS # (AUTO) 0.3 10^3/uL (0.0-0.7); EOSINOPHILS % (AUTO) 2.3 %; HCT - HEMATOCRIT 26.5 % (42.0-52.0); HGB - HEMOGLOBIN 9.5 g/dL (14.0-18.0); LYMPHOCYTES # (AUTO) 2.3 10^3/uL (1.5-3.5); LYMPHOCYTES % (AUTO) 20.2 %; MEAN CORPUSCULAR HEMOGLOBIN 31.6 pg (27.0-31.0); MEAN CORPUSCULAR HGB CONC 35.8 g/dL (32.0-36.0); MONOCYTES # (AUTO) 1.1 10^3/uL (0.0-1.0); MONOCYTES % (AUTO) 9.9 %; NEUTROPHILS # (AUTO) 6.7 10^3/uL (1.5-6.6); NEUTROPHILS % (AUTO) 60.5 %; NRBC ABSOLUTE COUNT (AUTO) 0.02 x10^3/uL; NUCLEATED RED BLOOD CELLS AUTO 0.2 /100WBC; PLT - PLATELET COUNT 132 10^3/uL (130-450); RED BLOOD COUNT 3.01 10^6/uL (4.70-6.10); RED CELL DISTRIBUTION WIDTH 15.7 % (12.0-15.0); WHITE BLOOD COUNT 11.1 x10^3/uL (4.8-10.8)
[2021-05-07 04:48] LABS: SLIDE REVIEW? Indicated
[2021-05-07 04:58] LABS: CALCIUM 7.9 mg/dL (8.5-10.3); CREATININE 0.9 mg/dL (0.6-1.2); MAGNESIUM 1.9 mg/dL (1.7-2.8); PHOSPHORUS 2.6 mg/dL (2.5-4.6); POTASSIUM 3.4 mmol/L (3.5-5.0)
[2021-05-07 05:09] LABS: PLATELET ESTIMATE, MANUAL NORMAL (130-450,000) (NORMAL); PLATELET MORPHOLOGY NORMAL APPEARANCE (NORMAL); RBC MORPHOLOGY (MULTIPLE) NORMAL APPEARANCE (NORMAL); WBC MORPHOLOGY (MULTIPLE) NORMAL APPEARANCE (NORMAL)
[2021-05-07] MEDS: INSULIN ASPART 300 UNIT/3 ML PEN SUBQ SCH ×4 (08:04→11:53)
--- NOTE | 2021-05-07 10:16 | Discharge Plan ---
Discharge Plan Problem Reviewed?: Yes Disposition: Home Health Service Condition: Fair Prescriptions: oxyCODONE [Roxicodone] 5 mg PO Q4HR PRN #30 tablet PRN Reason: Pain 5 to 7 Amox/Clav 875/125 [Augmentin 875/125 Tab] 1 tablet PO Q12H 10 Days #20 tablet Nystatin [Nystop] 1 applic TOP BID #1 bottle Amiodarone [Pacerone] 200 mg PO DAILY #30 tablet Diet: Diabetic Activity Restrictions: Activity as Tolerated Shower Restrictions: No Driving Restrictions: Yes (no driving while having leg pain) Assistance Devices: Walker Weight Bearing: Full Weight Instruction Topics: Tamsulosin capsules, Furosemide tablets, Hypokalemia Dc Health Concerns: You came to the emergency room because you were short of breath for about a week. But in addition to the shortness of breath you had increasing right leg pain in your calf and ankle. You already have a history of Charcot joint deformity. In the emergency room and found to have a fever to 39.4 Celsius. You had an elevated white cell count, and elevated lactic acid. Both of these are lab test that we measure how severe infection is and we felt that you met the criteria for something called sepsis. Your chest x-ray was unremarkable. Your urine was normal. In the end we feel that you had a right leg infection. Your right leg was tender to touch, hot, swollen. Culture from your blood grew out Streptococcus. As such we think that your leg has infection with Streptococcus and the infection was in your bloodstream when you came to us. While here we gave you antibiotics. You responded very nicely and your lactic acid went to normal and your white cell count went to normal. On the day of discharge your white cell count went back up a little bit. It was 11,000. Normal for you is between 7-9 thousand. We gave you an option of staying here or going home. You opted to want to go home and would come back if you needed to. We placed you on Augmentin 875 mg twice a day. We would like you to take a probiotic with that. Your other concern is that of pain. You take MS Contin 3 times a day. While y ou were in the hospital we gave you to twice a day. We also gave you oxycodone for breakthrough pain. You wanted to make sure that you got oxycodone when you went home and I have given you 30 pills but no more. A third concern was that of urinary retention. You could not urinate. You felt that you have been having that problem for days even before you came in to the hospital. You had a Lopes catheter. That was discontinued right before discharge. A final concern was that of your glucose. You state that you have borderline diabetes. But while here, you did not have a borderline status. You had out right diabetes and needed to be treated with insulin. We think that you could go home on medications for diabetes by pill. But the medication that we would like to give you, metformin, causes diarrhea. You are now go to be starting an antibiotic that may give you diarrhea. As such, very temporarily, we will be sending you home on a pil, amaryl, that you take once a day and does not cause diarrhea. But it can cause low blood glucose. If you take your pill that day, make sure that you do not skip meals. Do you have a little something to eat every day otherwise your sugar will get too low. Once you are no longer on the antibiotic, please have Dr. Arana switch you to Metformin for your diabetes. Plan of Treatment: 1. Complete antibiotic therapy with Augmentin 875 mg, twice a day, with food, for the next 10 days. 2. Make sure you take an [id number] probiotic with this. It can be any generic probiotic but take it twice a day while you are on Augmentin. 3. Although the leg hurts you, we do encourage you to get out of a chair and walk around your home several times a day. If you sit too much you might end up having pressure ulcers on your buttocks, or blood clots in your legs. 4. While here you had extra heartbeats with your heart rhythm. We checked an echocardiogram because you were showed of breath. We compared it to previous echocardiograms from May 2018 and November 2018. The heart pump was normal with an ejection fraction of 55 to 60%. A pacemaker is seen in the right upper heart chamber. And your echocardiogram appears to be stable if not slightly improved. You are already on bisoprolol. When we spoke to your supervisor carpenters about your extra heartbeat they recommended amiodarone temporarily. And you hav e been sent home on a new amiodarone tablet until you see your medical information specialist. 5. Please make sure you see your primary care provider in the next [address] Arana needs to take a look at you to make sure you are urinating normally, that You are okay with your new medications, and that your leg is improving. 6. Please see your supervisor carpenters in follow-up as well. 7.. Please start Amaryl 1 mg a day. This is for your diabetes. Take that in the morning before breakfast. Because this is a new medication, and can cause low glucose, make sure you eat small meals throughout the day. If you start to get sweaty, shaky, stop the Amaryl. Drink a glass of orange juice. And see Dr. Arana in follow-up to see how you can treat your diabetes. You will need to go to diabetic teaching classes to learn how to check your sugar, and keep your glucose under control with diet and medicine. 8. Prior to discharge, we did remove your Lopes. He drank approximately 600 mL of fluid and had produced only 100 cc of urine by the time of discharge. He really did not have any urge to urinate or go. We ask you to follow-up with a urologist in the outpatient setting. If you cannot urinate, and your bladder is more a more full, you can come back to the emergency room for an emergency drainage and Lopes to be put back in again. Care Goals: You would like to return to an independent status or your leg no longer bothers you and you can walk normally. Assessment: The patient is motivated to control his problems. He is slightly anxious about the new diagnosis of diabetes that is no longer borderline. And he wants to make sure that his pain management keeps him under control with regards to his pain. He is also very worried about his ability to urinate. Follow-Up Care: [facility] - Diabetes Ed No Smoking: If you smoke, Please STOP! Call for help. Follow-up with: Tylor Arana MD [Primary Care Provider] -
[2021-05-07] MEDS: ASPIRIN EC 81 MG TABLET PO SCH (12:11)
[2021-05-07] MEDS: cefTRIAXone 2 GM in SODIUM CHLORIDE 0.9% MINIBAG 100 ML IV SCH (12:11)
[2021-05-07] MEDS: AMIODARONE 200 MG TABLET PO SCH (12:11)
[2021-05-07] MEDS: CHOLECALCIFEROL 25 MCG TABLET PO SCH (12:12)
[2021-05-07] MEDS: POTASSIUM CHLORIDE 20 MEQ TABLET PO SCH (12:13)
[2021-05-07] MEDS: DOCUSATE SODIUM 250 MG CAPSULE PO SCH (12:13)
[2021-05-07] MEDS: LOSARTAN 50 MG TABLET PO SCH (12:13)
[2021-05-07] MEDS: FUROSEMIDE 20 MG TABLET PO SCH (12:13)
[2021-05-07] MEDS: ENOXAPARIN 40 MG/0.4 ML SYRINGE SUBQ SCH (12:14)
[2021-05-07] MEDS: polyethylene glycoL 3350 17 GM PACKET PO SCH (12:24)
[2021-05-07] MEDS: SENNA 8.6 MG TABLET PO SCH (12:33)
[2021-05-07] MEDS: MORPHINE ER 15 MG TABLET PO SCH (12:37)
[2021-05-07] MEDS: NYSTATIN POWDER 15 GM TOP SCH (13:43)
[2021-05-07] MEDS ORDERED: D5NS W/20 MEQ KCL 1,000 ML IV SCH (14:00)
[2021-05-07 14:59] VITALS: BP 131/62
--- NOTE | 2021-05-07 15:30 | DISCHARGE SUMMARY ---
Discharge Summary Admit Date: 05/02/21 Discharge Date: 05/07/21 Discharging Provider: Minal Armas MD Primary Care Provider: Tylor Arana MD Code Status: Attempt Resuscitation Condition at Discharge: Fair Discharge Disposition: Counts Include [facility] At [facility] Service - DIAGNOSES Discharge Diagnoses with Status of Each Condition: 1. Sepsis, resolved 2. Streptococcus bacteremia 3. Right lower extremity cellulitis 4. Right lower extremity stasis dermatitis 5. Type 2 diabetes mellitus, without complication, without long-term use of insulin 6. Nonsustained V. tach, status post AICD April 12, 2021 7. Acute kidney injury, resolved 8. Elevated troponin, demand ischemia 9. Hyperlipidemia 10. History of coronary artery disease, [place] artery 11. Chronic pain syndrome 12. Urinary retention - HPI History of Present Illness: Patient is a 70-year-old male with history of hyperlipidemia, coronary disease, DVT, chronic leg pain and recent AICD placement who presented to the ED with complaint of dyspnea. He reported that this has been going on for the past week and progressively worse. He denied chest pain or abdominal pain, nausea, vomiting. He has significant right leg pain. In the ED he was noted to have a fever with a temperature of 39.4 C. Lactic acid was 4.7 and a white blood cell count of 16.5. At the time of initial exam his history was very limited because the patient was somewhat confused. This was likely related to his fever. He was presented for admission for further treatment. Chest x-ray and urinalysis were unremarkable. - Past Medical History Cardiovascular: reports: High cholesterol, Coronary artery disease, Deep vein thrombosis, [place] Respiratory: reports: Pneumonia, Sleep apnea, CPAP use Neuro: reports: Headaches Endocrine/Autoimmune: reports: None GI: reports: Colon polyps, Hemorrhoids, Other : reports: None HEENT: reports: Chronic vision loss Psych: reports: None, Claustrophobia Musculoskeletal: reports: Osteoarthritis Derm: reports: Other MRSA Hx?: No - CONSULTS | PROCEDURES Procedures: 1. Chest x-ray. No acute cardiopulmonary process. 2. Lower extremity CT without discrete abscess collection. Diffuse subcutaneous changes of edema and skin thickening including a prominent region within the medial plantar aspect of the midfoot that are nonspecific and may reflect cellulitis. No CT evidence of osteomyelitis. Severe degeneration of the midfoot suggestive of Charcot arthropathy. 3. Echocardiogram. Compared to May 2018 and November 2018. Mild concentric left ventricular hypertrophy. Left ventricular systolic function normal with an ejection fraction of 55 to 60%. Trabeculation at the apex of the left ventricle. Dilated right atrium with pacemaker leads seen in the right atrium and right ventricle. Right ventricular systolic function normal. No hemodynamically significant cardiac valve disease noted. 4. Blood culture May 02 from left arm growing beta-hemolytic group strep C. Blood culture from right hand growing strep this Gallick. Repeat blood cultures May 03 are negative after 2 days. - HOSPITAL COURSE Hospital Course: The patient was placed on empiric antibiotic therapy for soft tissue cellulitis. This consisted of cefepime and vancomycin. He was also on Flagyl. Once he grew out strep in his bloodstream, he was deescalated to Rocephin. With the e mpiric antibiotics, white cell count started at 18,000. And he gradually went down to normal. With changing to Rocephin White cell count gradually came back up to 6.3 then 9.4 and on the day of discharge she is 11.1. There is no fever. The right leg is shrinking in size. It is still painful to walk on in the tib- fib area. Especially in the right foot. The right foot had a callus that was initially abraded but there is no drainage. The callus is located in the medial aspect of the arch of the Charcot joint. The right leg was shiny, tight, and finally started splitting and is oozing from the skin. But there are no open ulcers or skin tears.He will complete antibiotic therapy with Augmentin 875/125 p.o. twice daily for 10 more days. I have asked him to take probiotics in the outpatient setting while he is on Augmentin. The patient had an episode of acute urinary retention. Lopes catheter was placed. He is very anxious about the Lopes catheter in that he does not know who wants it to stay or be removed. He does not want to go to the [facility] to see the urologist. On the day of discharge he finally decided that he wanted the Lopes removed. He drank approximately 600 cc of fluid, produced 100 cc of urine in his bladder and was too anxious for with performance anxiety to urinate. He also did not have the urge to urinate. As such I sent him home with [facility], and he will need to see a urologist in the outpatient setting for probable benign prostatic hypertrophy. He also had elevated glucose. He states that he is "borderline" diabetes. During his stay his glucose was consistently 280-260 on the first day. We started him on Lantus and sliding scale and brought his glucose down. I initially thought about sending him home on Metformin but with the Augmentin I will be sending him on for soft tissue infection, I fear that he will get a side effect of severe diarrhea. As such I am sending him home on Amaryl 1 mg a day. He does not know how to check his sugars and I want him to be registered with diabetic education classes. I also want him to see his primary care provider in follow-up for treatment of this. I explained to the patient that this is very important in view of the fact that he has a soft tissue infection. If his glucose cannot get under control, he will not be able to heal his infection. Troponins were initially elevated but in trending he started 56, then went to 109, then to 64. We do not feel he had true NSTEMI but just enzyme leakage from frequent atopic arrhythmia and hypertension initially. Potassium was 3.4 on discharge and supplemented with p.o. potassium. He does have an elevated bili of 1.6 with AST 61 and ALT 41. This gentleman may have fatty liver disease. A1c was 7.1%. He has moderate anxiety. Any new piece of information results in perseveration, mumbling, talking to himself as he tries to process. He is constantly apologizing for being "such a burden" and we are reassured him as much as possible that his questions were appropriate. On the day of discharge he had hypokalemia that was treated with p.o. potassium. He has an AICD in place. We spoke to him about it because he was having episodes of arrhythmia that his combine operator recommended we placed on amiodarone. As such the amiodarone will be any other new medicine for him to start. Chronic pain is an issue for him because of his Charcot joints. He takes MS Contin 3 times a day. We did not reconcile his med list for 24 hours and closer to 48 hours he did not receive 3 times a day morphine. He received oxycodone as needed. I resumed MS Contin twice daily not 3 times daily and he did well. We used oxycodone for breakthrough pain. He can address his chronic pain needs with his primary care provider in the outpatient setting.Exam at discharge had a temperature of 36.9. Heart rate 84. Blood pressure 131/62. Respirations 20. 91 to 93% on room air. He is a morbidly obese gentleman at 6 foot 4 inches tall weighing 145.4 kg. Very anxious but very motivated to go home. He kept on repeatedly saying "I just wanted go home" when I offered him another night stay because of his anxiety. His anxiety is diffuse and related to the Lopes, will he be able to pee, with his leg over shrink to normal, I does he have to worry about this AICD. He was clean-shaven when he left and got a full shave the day before discharge. He was very pleased about that. Neck is supple. Lungs are clear to auscultation and percussion without crackles rhonchi wheezing he has diminished breath sounds in this very large barrel chest. He has a regular rate and rhythm with many ectopic beats. Abdomen is severely obese, protuberant, with ventral hernias that are easily reducible. He has changes of resolving Odalys in the groin and underneath the pannus. Skin over his legs especially the distal tib-fib area shows severe hyperpigmentation from hemosiderin deposition and chronic venous stasis dermatitis. Currently the left leg is com pletely closed, healed, and the right leg is swollen, slightly hot to touch, slightly red underneath the hemosiderin deposits. That shiny skin has cracked a bit and is oozing a little bit of fluid but there is no open ulcers or open skin tears or peeling of skin. Both feet are deformed with Charcot deformity. The right medial arch has a bony protuberance. Greater than 30 minutes was spent coordinating discharge in this dominic but anxious man. I did offer him another night stay because of his many medical problems and he opted to go home. - ALLERGIES Allergies/Adverse Reactions: Allergies Allergy/AdvReac Type Severity Reaction Status Date / Time hydromorphone HCl * AdvReac Intermediate Respiratory Verified 05/02/21 18:49 [From Dilaudid] - MEDICATIONS Home Medications: Ambulatory Orders Medication Instructions Recorded Confirmed Morphine Sulfate [Ms Contin] 15 mg PO TID 03/30/14 05/03/21 Atorvastatin [Lipitor] 20 mg PO QPM 04/19/18 05/03/21 Losartan [Cozaar] 50 mg PO DAILY 04/19/18 05/03/21 Cholecalciferol (Vitamin D3) 2,000 unit PO DAILY 10/18/18 05/03/21 [Vitamin D3] Melatonin 3 mg PO QPM PRN 10/17/19 05/03/21 Furosemide [Lasix] 20 mg PO DAILY #30 tablet 04/28/21 05/03/21 Hydrocodone/Acetaminophen 2 tab PO BID PRN 05/03/21 05/03/21 [Hydrocodone-Acetamin 5-300 mg] Tamsulosin [Flomax] 0.4 mg PO QPM 05/03/21 05/03/21 bisoproloL fumarate [Bisoprolol 5 mg PO QPM 05/03/21 05/03/21 Fumarate] Acetaminophen [Tylenol] 650 mg PO Q4HR PRN tablet 05/07/21 Amiodarone [Pacerone] 200 mg PO DAILY #30 tablet 05/07/21 Amox/Clav 875/125 [Augmentin 1 tablet PO Q12H 10 Days #20 tablet 05/07/21 875/125 Tab] Aspirin EC [Ecotrin] 81 mg PO DAILY tablet 05/07/21 Nystatin [Nystop] 1 applic TOP BID #1 bottle 05/07/21 oxyCODONE [Roxicodone] 5 mg PO Q4HR PRN #30 tablet 05/07/21 - LABS Result Diagrams: 05/07/21 04:16 05/07/21 04:16 - SEPSIS Current Stage of Sepsis: Sepsis Possible source of Sepsis: Skin/soft tissue Sepsis Criteria: Recorded Temperature greater than 38.3C or Less than 36C, Recorded Heart Rate greater than 90 bpm, Recorded Respiratory Rate greater than 20, Respiratory: Increasing oxygen requirements, WBC count greater than 12,000 or less than 4000
== END 2021-05-07 16:50 | disposition home health service (06) | DRG 872 ==
LOC: ED 18:45 → MS2 20:26 → ICU 22:08
PROVIDERS: ADMIT Internal Medicine; ATTEND Specialist
DX: A41.9 Sepsis, unspecified organism (principal); A40.8 Other streptococcal sepsis; E66.9 Obesity, unspecified; F17.200 Nicotine dependence, unspecified, uncomplicated; R60.0 Localized edema; Z20.822 Contact with and (suspected) exposure to COVID-19; L03.115 Cellulitis of right lower limb; N17.9 Acute kidney failure, unspecified; I47.2 Ventricular tachycardia; I87.2 Venous insufficiency (chronic) (peripheral); I25.10 Atherosclerotic heart disease of native coronary artery without angina pectoris; I25.2 Old myocardial infarction; G89.4 Chronic pain syndrome; E78.00 Pure hypercholesterolemia, unspecified; L84 Corns and callosities; N40.1 Benign prostatic hyperplasia with lower urinary tract symptoms; I10 Essential (primary) hypertension; E11.610 Type 2 diabetes mellitus with diabetic neuropathic arthropathy; F41.9 Anxiety disorder, unspecified; E87.6 Hypokalemia; E66.01 Morbid (severe) obesity due to excess calories; B37.9 Candidiasis, unspecified; E86.0 Dehydration; E11.65 Type 2 diabetes mellitus with hyperglycemia; R33.8 Other retention of urine; R77.8 Other specified abnormalities of plasma proteins; Z79.82 Long term (current) use of aspirin; Z79.890 Hormone replacement therapy; Z79.899 Other long term (current) drug therapy; Z86.718 Personal history of other venous thrombosis and embolism; Z95.810 Presence of automatic (implantable) cardiac defibrillator
CPT/HCPCS: 36415; 71045; 73701; 80048; 80053; 80076; 81001; 82310; 82330; 83036; 83605; 83690; 83735; 83880; 84100; 84132; 84484; 85025; 85651; 86140; 87040; 87150; 87181; 87631; 93005; 93306; 97116; 97161; 97530; A9270; J0282; J1650; J1815; J3370; Q9967; 0202U; 87086; 96365; 96368; 96375; 99283

== ENCOUNTER 2021-06-30 14:29 | Outpatient (CLI) | payer MEDICARE, OTHER ==
--- NOTE | 2021-06-30 15:54 | XRAY Report ---
PROCEDURE: Chest 2 View X-Ray INDICATIONS: S/P ICD IMPLANT TECHNIQUE: 2 view(s) of the chest. COMPARISON: None. FINDINGS: Surgical changes and devices: Left-sided pacer Lungs and pleura: No pleural effusions or pneumothorax. Lungs are clear. Mediastinum: Mediastinal contours are normal. Heart size is normal. Bones and chest wall: No suspicious bony abnormalities. Soft tissues appear unremarkable. IMPRESSION: No acute process. Reviewed by: Jose Lazo MD on 06/30/2021 3:53 PM PST Approved by: Jose Lazo MD on 06/30/2021 3:53 PM PST Station ID: [id number]
== END 2021-06-30 14:30 | disposition home or self-care (01) ==
LOC: DI 14:29
PROVIDERS: ATTEND Internal Medicine
DX: Z95.810 Presence of automatic (implantable) cardiac defibrillator (principal)

== ENCOUNTER 2021-07-27 09:46 | Outpatient (CLI) | payer MEDICARE, OTHER ==
[2021-07-27 10:27] LABS: CHOL/HDL RATIO 5.9 (<5.0); CHOLESTEROL 218 mg/dL; HDL CHOLESTEROL 37 mg/dL; TRIGLYCERIDES 755 mg/dL
[2021-07-27 11:06] LABS: LDL CHOLESTEROL,DIRECT 45 mg/dL; LDLD/HDL RATIO 1.2 (<3.6)
== END 2021-07-27 09:47 | disposition home or self-care (01) ==
LOC: LAB 09:46
PROVIDERS: ATTEND Internal Medicine Cardiovascular Disease
DX: Z51.81 Encounter for therapeutic drug level monitoring (principal); Z79.899 Other long term (current) drug therapy
CPT/HCPCS: 36415; 80061; 83721

== ENCOUNTER 2021-10-22 08:00 | Outpatient (CLI) | payer MEDICARE, OTHER ==
--- NOTE | 2021-10-22 14:56 | XRAY Report ---
PROCEDURE: Chest 2 View X-Ray INDICATIONS: DYSPNEA TECHNIQUE: 2 view(s) of the chest. COMPARISON: Chest x-ray 06/30/2021 FINDINGS: Surgical changes and devices: Pacemaker Lungs and pleura: Mild increased left basilar opacity with blunting of the left costophrenic angle. Mediastinum: Mediastinal contours are normal. Heart size is normal. Bones and chest wall: No suspicious bony abnormalities. Soft tissues appear unremarkable. IMPRESSION: Mild left pleural effusion. Areas of underlying pneumonia and/or atelectasis cannot be e xcluded. Reviewed by: Vita Harkins MD on 10/22/2021 2:55 PM PDT Approved by: Vita Harkins MD on 10/22/2021 2:55 PM PDT Station ID: [id number]
== END 2021-10-22 23:59 | disposition home or self-care (01) ==
LOC: DI.S 08:00
PROVIDERS: ATTEND Emergency Medicine
DX: J90 Pleural effusion, not elsewhere classified (principal)

== ENCOUNTER 2021-11-15 13:54 | Outpatient (CLI) | payer MEDICARE, OTHER ==
--- NOTE | 2021-11-15 15:10 | Ultrasound Report ---
PROCEDURE: Duplex Ext Veins Left INDICATIONS: SWELLING OF LEFT LOWER LEG TECHNIQUE: Real-time imaging, as well as color and pulse Doppler interrogation, were performed of the lower extr emity deep veins from the inguinal ligament to the popliteal fossa. COMPARISON: None. FINDINGS: Fully occlusive thrombus in the left common femoral vein, superficial femoral vein, deep fe moral vein, and popliteal vein, along with nonocclusive thrombus within the in the left posterior tib ial vein and peroneal vein. IMPRESSION: Extensive acute deep venous thrombosis in the left lower extremity. Reviewed by: Maximilian Lyons MD on 11/15/2021 3:09 PM PDT Approved by: Maximilian Lyons MD on 11/15/2021 3:09 PM PDT Station ID: [id number]
== END 2021-11-15 13:55 | disposition home or self-care (01) ==
LOC: DI 13:54
PROVIDERS: ATTEND Physician Assistant
DX: I82.412 Acute embolism and thrombosis of left femoral vein (principal); I82.432 Acute embolism and thrombosis of left popliteal vein; I82.442 Acute embolism and thrombosis of left tibial vein; I82.452 Acute embolism and thrombosis of left peroneal vein

== ENCOUNTER 2022-07-08 08:00 | Outpatient (CLI) | payer MEDICARE, OTHER ==
--- NOTE | 2022-07-08 12:18 | XRAY Report ---
PROCEDURE: Chest 2 View X-Ray INDICATIONS: COUGH TECHNIQUE: 2 views of the chest were acquired. COMPARISON: 10/14/2021, 06/30/2021 FINDINGS: Surgical changes and devices: An AICD can be seen. Lungs and pleura: No pleural effusions or pneumothorax. Lungs are clear. Mediastinum: The aorta is prominent and tortuous. The cardiac contours are within normal limits. Bones and chest wall: No suspicious bony abnormalities. Age-appropriate degenerative changes are se en. Soft tissues appear unremarkable. IMPRESSION: No focal infiltrates are seen. Reviewed by: Kane Castro MD on 07/08/2022 11:16 AM [facility] Approved by: Kane Castro MD on 07/08/2022 11:16 AM [facility] Station ID: [id number]
== END 2022-07-08 12:00 | disposition home or self-care (01) ==
LOC: DI.S 08:00
PROVIDERS: ATTEND Registered Nurse
DX: R05.1 Acute cough (principal)

== ENCOUNTER 2022-12-01 09:10 | Outpatient (CLI) | payer MEDICARE, OTHER ==
[2022-12-01 09:41] LABS: CHOL/HDL RATIO 5.7 (<5.0); CHOLESTEROL 194 mg/dL; HDL CHOLESTEROL 34 mg/dL; TRIGLYCERIDES 788 mg/dL
[2022-12-01 10:09] LABS: LDL CHOLESTEROL,DIRECT 40 mg/dL; LDLD/HDL RATIO 1.2 (<3.6)
== END 2022-12-01 09:11 | disposition home or self-care (01) ==
LOC: LAB 09:10
PROVIDERS: ATTEND Nurse Practitioner
DX: E78.2 Mixed hyperlipidemia (principal)
CPT/HCPCS: 36415; 80061; 83721

== ENCOUNTER 2023-04-20 08:40 | Outpatient (CLI) | payer MEDICARE, OTHER ==
--- NOTE | 2023-04-23 10:38 | Mammography Report ---
MALE BILATERAL DIGITAL DIAGNOSTIC MAMMOGRAM 3D/2D: 04/20/2023 CLINICAL: Palpable left breast lump. Baseline exam. No prior exams were available for comparison. No significant masses, calcifications, or other findings are seen in either breast. IMPRESSION: NEGATIVE There is no abnormality seen in the left breast to correspond with the palpable abnormality in the shaver b-areolar depth which the patient says has now resolved. There is no mammographic evidence of malignancy. Recommend clinical follow up. This exam was interpreted at Station ID: [id number]. NOTE: For mammograms, a report in lay terms will be sent to the patient. Approximately 15% of breast malignancies will not be visualized mammographically. In the management of a palpable breast mass, a negative mammogram must not discourage biopsy of a clinically suspicious lesion. Electronically Signed By: Puneet Steen M.D. acr/:04/20/2023 09:49:39 ACR BI-RADS Category 1: Negative 3341F PARENCHYMAL PATTERN: (F) - The breast(s) demonstrate(s) diffuse fatty replacement. BI-RADS CATEGORY: (1) - 1 Unspecified - other recall n/a LATERALITY: (B)
== END 2023-04-20 08:41 | disposition home or self-care (01) ==
LOC: DI 08:40
PROVIDERS: ATTEND Physician Assistant
DX: N64.4 Mastodynia (principal)

== ENCOUNTER 2023-08-03 10:05 | Outpatient (CLI) | payer OTHER ==
--- NOTE | 2023-08-03 11:00 | Sleep Patient Instructions ---
Sleep Center Visit Summary - Patient Visit Information Reason for Visit: Initial consultation - Patient Instructions Instructions Attached: Sleep Study Home Monitor Additional Instructions: You will be completing a sleep study, either an in-lab polysomnography (PSG) or home sleep study (HST). You will follow-up in the sleep care office after the sleep study is completed to hear the results and talk about therapy, if needed. You will be called by our office staff to schedule this appointment, but you may contact us with any questions. - Clinic Information Contact: [facility] [address] [place] [address] [email or web address] T: [phone]
--- NOTE | 2023-08-03 11:06 | SLEEP CARE CONSULTATION ---
Information from patient questionnaire entered by Molly Patel. I have reviewed and concur with the information entered by Mloly Patel. This document represents the service I personally performed and the decisions made by me, Blessing Bruce ARNP. History of Present Illness Service Date and Time: 08/03/2023 1005 Reason for Visit: New patient, Previously diagnosed sleep apnea, sleep apnea on CPAP therapy Accompanied by: Spouse (Alberta) Chief Complaint: reports: Insomnia, Observed pauses in breathing, Frequent awakenings at night, Other (UP DATE SUPPLIES) Date of Onset: YRS Usual bedtime: 9PM Time it takes to fall asleep: 5 mins Snores at night: Yes Observed to quit breathing while asleep: Yes Sleeps alone due to snoring: No Number of times waking at night: 1-2 Reasons for waking at night: reports: Choking, Gasping for air, Pain Toss, Turn, or Twitch while sleeping: No Recalls having dreams: Yes Feels refreshed in the morning: No Morning headache: No Sleepy or fatigued during the day: Yes Ever fallen asleep while driving: No Takes day naps: Yes Dreams during day naps: No Prior sleep studies: Yes Year and Where: 20 yrs ago Additional HPI information: SUSIE OLIVARES was previously diagnosed to have unknown, AHI unknown, obstructive sleep apnea-hypopnea syndrome and comes in today with spouse to establish care for CPAP therapy. - Parasomnia Symptoms Ever been unable to move upon waking from sleep: No Walks in sleep: No Talks in sleep: No Ever acted out dreams in sleep: No Ever felt weak in the knees when startled or emotional: No Bothered by creepy, crawly, restless sensations in legs: Yes Problems with memory or concentration: No CPAP Compliance Data - Data Reviewed with Patient Average duration of nightly device use: 8 hours 34 minutes Compliance rate %: 84.7 (310/365 days used) Current pressure setting (cmH2O): 9-12 Average residual AHI: 2 Central apnea: 0.4 Obstructive apnea: 0.7 Hypopnea: 0.9 Average large leak: 3 mins 33 secs On Oxygen: Yes (2 L) Oxygen usage: Nocturnal Compliance data discussion: He says his machine is making a loud noise for the last 6 months. Subjective Initial [place] Sleepiness Scale score: 16 (08/03/23) Past Medical History Past Medical History: reports: Diabetes, Other (2021 PACEMAKER/Defibrillator placed; leg ulcers (wound care); Pulmonary embolism 3-4 yrs ago; uses urinary catheters) Social History The patient's occupation is a RETIRED. Patient is Single and lives in [place]. Have you smoked in the past 12 months: No Cigarettes per day (20/pack): 20 Years of smokin Quit date: 04/2021 Smoking Pack Years: 20.0 Alcohol use: Yes Alcohol amount and frequency: INFREQUENTLY Caffeine use: Yes Caffeine amount and frequency: 2 CUPS MORNING Family History Family history of sleep disordered breathing: Yes Family Hx Sleep Apnea: Mother: Snoring, Sleep apnea - Treated Allergies and Home Medications Known drug allergies: Yes ( LISTED) Drug allergies reviewed: Yes Home medication list reviewed: Yes (as listed) Allergy and home medication list: Allergies finasteride Allergy (Verified 08/01/23 10:44) Rash hydromorphone HCl * [From Dilaudid] Adverse Reaction (Intermediate, Verified 08/01/23 10:44) Respiratory Oxygen went down Home Medications Medication Instructions Recorded Confirmed Last Taken Type Morphine Sulfate [Ms Contin] 15 mg PO TID 03/30/14 08/03/23 09/06/16 History Atorvastatin [Lipitor] 20 mg PO QPM 04/19/18 08/03/23 Unknown History Losartan [Cozaar] 50 mg PO DAILY 04/19/18 08/03/23 Unknown History Cholecalciferol (Vitamin D3) 2,000 unit PO DAILY 10/18/18 08/03/23 Unknown History [Vitamin D3] Melatonin 3 mg PO QPM PRN 10/17/19 08/03/23 Unknown History Furosemide [Lasix] 20 mg PO DAILY #30 tablet 04/28/21 08/03/23 Unknown Rx Tamsulosin [Flomax] 0.4 mg PO QPM 05/03/21 08/03/23 Unknown History bisoproloL fumarate [Bisoprolol 5 mg PO QPM 05/03/21 08/03/23 Unknown History Fumarate] Apixaban [Eliquis] 5 mg PO BID 12/07/21 08/03/23 Unknown History Hydrocodone/Acetaminophen 2 each PO BID 12/07/21 08/03/23 Unknown History [Hydrocodone-Acetamin 5-300 mg] Empagliflozin [Jardiance] See Rx Instructions .ROUTE .COMPLEX 08/03/23 08/03/23 Unknown History Insulin Glargine [Lantus Solostar] See Rx Instructions .ROUTE .COMPLEX 08/03/23 08/03/23 Unknown History Ketoconazole 2% Cream [Nizoral 2% See Rx Instructions .ROUTE .COMPLEX 08/03/23 08/03/23 Unknown History Cream] Mupirocin 2% Oint [Bactroban 2% See Rx Instructions .ROUTE .COMPLEX 08/03/23 08/03/23 Unknown History Oint] Nitroglycerin [Nitrostat] See Rx Instructions .ROUTE .COMPLEX 08/03/23 08/03/23 Unknown History [place]-3 Fatty Acids [[place]-3] See Rx Instructions .ROUTE .COMPLEX 08/03/23 08/03/23 Unknown History Semaglutide [Ozempic] See Rx Instructions .ROUTE .COMPLEX 08/03/23 08/03/23 Unknown History Tadalafil [Cialis] See Rx Instructions .ROUTE .COMPLEX 08/03/23 08/03/23 Unknown History traZODone [Desyrel] See Rx Instructions .ROUTE .COMPLEX 08/03/23 08/03/23 Unknown History Review of Systems Weight loss over past 5 years: 30 Cardiovascular: reports: leg or foot swelling Respiratory: reports: shortness of breath Gastrointestinal: reports: diarrhea, abdominal pain Neurological: reports: gait or balance problems Ear/Nose/Throat: reports: dry mouth/throat Endocrine: reports: excessive thirst Musculoskeletal: reports: joint pain, back pain, joint swelling, muscle pain or cramping, mobility problems Physical Exam Vital signs obtained and entered by: MOLLY Carl MA Blood Pressure: 134/68 (LEFT ARM) Cuff size: regular Heart Rate: 66 O2 Saturation: 96 Height: 6 ft 3 in Weight: 314 lb 12.8 oz Body Mass Index: 39.3 BMI Classification: Obese Neck circumference: 21.5 Heart: regular rate and rhythm Lungs: clear bilaterally Impression and Plan 1. Obstructive Sleep Apnea-Hypopnea Syndrome, unknown, with good treatment compliance and good apnea control. On CPAP therapy, the patient has better sleep quality and is more rested overall. He last had a sleep study 20 years ago and we do not have any records. He is wanting to change to getting supplies from [place] because his current DME [facility] is no longer carrying the nasal mask, Mirage, that he prefers. I recommend proceeding to polysomnography to confirm the diagnosis and to assess severity. I obtained agreement to proceed. The pathophysiology of obstructive sleep apnea-hypopnea syndrome was discussed with the patient and health risks of cardiovascular and cerebrovascular disease if not treated. Patient's apnea severity and rationale for treatment to reduce apnea, improve sleep quality and reduce cardiovascular and cerebrovascular events was reviewed. I also reviewed the benefit of consistent device use of CPAP for cardiac diseas e, diabetes. 2. Obesity, unspecified. Currently patients BMI is 39.3. Obesity increases the risk of apnea, CPAP pressure requirements and overall health risks especially cardiovascular and diabetes. Thus patient is advised to lose weight. * Continue auto CPAP pressure at 9-12 cmH2O * PSG to verify diagnosis and severity * Update supplies once has copy of sleep study * Notify me if snoring with mask or feeling that the pressure is too much or too little * Attempt to lose weight * Call this office if any problems using CPAP * Return for follow up after sleep study, or sooner if concerns arise Counseling Topics: Spare mask, Weight loss health impact Follow up with Sleep Care in: other (after sleep study) Plan: PSG/HST Visit Type: In Office Time Spent with Patient (minutes): 36 Provider Statement: I spent 100% of the Face to Face Visit with the patient with greater than 50% spent counseling the patient and coordination of care.
[2023-08-03 11:10] VITALS: BP 134/68; O2SAT 96
== END 2023-08-03 10:06 | disposition home or self-care (01) ==
LOC: SC 10:05
PROVIDERS: ATTEND Nurse Practitioner Family
DX: G47.33 Obstructive sleep apnea (adult) (pediatric) (principal); E66.9 Obesity, unspecified; Z68.39 Body mass index [BMI] 39.0-39.9, adult; Z87.891 Personal history of nicotine dependence
CPT/HCPCS: 99203; 99212

== ENCOUNTER 2023-09-04 08:00 | Outpatient (CLI) | payer MEDICARE, OTHER ==
--- NOTE | 2023-09-04 11:32 | XRAY Report ---
PROCEDURE: Chest 2V INDICATIONS: WHEEZE-RHONCHI TECHNIQUE: 2 views of the chest were acquired. COMPARISON: 07/08/2022. FINDINGS: Surgical changes and devices: Left chest wall pacemaker Lungs and pleura: No pleural effusions or pneumothorax. Mild bibasilar atelectasis is similar in [place] earance to prior. Lungs are otherwise clear. Mediastinum: Mediastinal contours appear normal. Heart size is normal. Bones and chest wall: No suspicious bony lesions. Overlying soft tissues appear unremarkable. IMPRESSION: No acute cardiopulmonary process. Reviewed by: Matthew Bruno MD on 09/04/2023 11:31 AM PDT Approved by: Matthew Bruno MD on 09/04/2023 11:31 AM PDT Station ID: [id number]
== END 2023-09-04 23:59 | disposition home or self-care (01) ==
LOC: DI.S 08:00
PROVIDERS: ATTEND Nurse Practitioner
DX: R09.89 Other specified symptoms and signs involving the circulatory and respiratory systems (principal); R06.2 Wheezing

== ENCOUNTER 2023-09-07 12:11 | Outpatient (CLI) | payer OTHER | END 2023-09-07 12:12 | disposition home or self-care (01) | LOC: SC 12:11 | PROVIDERS: ATTEND Nurse Practitioner Family | DX: G47.33 Obstructive sleep apnea (adult) (pediatric) (principal); R09.02 Hypoxemia | CPT/HCPCS: 95806 ==

== ENCOUNTER 2023-12-12 12:55 | Outpatient (CLI) | payer OTHER ==
--- NOTE | 2023-12-12 14:01 | Sleep Patient Instructions ---
Sleep Center Visit Summary - Patient Visit Information Reason for Visit: Sleep study follow-up - Patient Instructions Additional Instructions: You were here for follow up of verifying sleep study which showed severe obstructive sleep apnea. You will be continued on CPAP therapy with pressure at 9-12 cmH2O. [facility] I have added an order to update your PAP machine. Please call the office to schedule a compliance follow up once you get your new device. You should follow up with sleep care one month after getting new device. You may contact us sooner for any questions or concerns. - Clinic Information Contact: [facility] [address] [place] [address] [email or web address] T: [phone]
--- NOTE | 2023-12-12 14:10 | SLEEP CARE CONSULTATION ---
Information from patient questionnaire entered by Molly Patel. I have reviewed and concur with the information entered by Molly Patel. This document represents the service I personally performed and the decisions made by , Blessing Bruce ARNP. History of Present Illness Service Date and Time: 12/12/2023 1255 Accompanied by: Spouse Initial Cassel Sleepiness Scale score: 16 (08/03/23) Current Cassel Sleepiness Scale score: 11 Additional HPI information: SUSIE OLIVARES returns for follow up and results of the recently performed home sleep study. The sleep study done on 09/07/23 showed severe obstructive sleep apnea with an average AHI of 30.2 and scotty oxygen saturation of 82%. I explained the pathophysiology behind obstructive sleep apnea. We then spent quite a bit of time discussing different treatment options. For mild obstructive sleep apnea, surgery and oral appliance are alternatives to nasal CPAP therapy but in moderate or severe cases, nasal CPAP is the most effective and reliable treatment. I reviewed the impact of weight changes on sleep apnea and strongly recommended losing weight. The patient will continue with the nasal CPAP therapy set at 9-12 cmH20. Patient was cautioned about risks of drowsy driving until sleepiness symptoms resolve. Patient denies drowsy driving. Sleep Study - Results Type of Sleep Study: Home sleep study (COMPLETED 09/07/23) Prior sleep studies: Yes Year and Where: 20 yrs ago Polysomnography/Home Sleep Study results: Physician Impression: The quality of the study is good. The length of the study is adequate (> 240 minutes). Please also see the tabulated and graphic data. 1. Obstructive Sleep Apnea-Hypopnea (ICD-10 G47.33), severe, with an AHI of 30.2/hr and scotty SaO2 of 82%. During the study, the patient had 148 apneas (148 obstructive, 0 central, 0 mixed) and 59 hypopneas. The longest episode lasted 104.5 seconds. The respiratory events occurred slightly more frequently during supine sleep (supine AHI was 31.8 and non-supine, 24.25). 2. Hypoxemia (ICD-10 R09.02), mild, with the lowest oxygen saturation of 82 % and 255.9 minutes with SaO2 under 90%. Baseline oxygen saturation was low (Average oxygen saturation was 89%). Allergies and Home Medications Known drug allergies: Yes (as listed) Drug allergies reviewed: Yes Home medication list reviewed: Yes (no changes) Allergy and home medication list: Allergies finasteride Allergy (Verified 09/25/23 10:13) Rash lisinopril Allergy (Verified 09/25/23 10:13) hydromorphone HCl * [From Dilaudid] Adverse Reaction (Intermediate, Verified 09/25/23 10:13) Respiratory Oxygen went down Review of Systems Review of systems same as previous: Yes (NO CHANGE) Physical Exam Vital signs obtained and entered by: MOLLY Carl MA Blood Pressure: 115/56 (RIGHT ARM) Cuff size: regular Heart Rate: 80 O2 Saturation: 95 Height: 6 ft 3 in Weight: 310 lb Body Mass Index: 38.7 BMI Classification: Obese Impression and Plan 1. Obstructive Sleep Apnea-Hypopnea Syndrome, severe, with lowest oxygen satu ration of 82%. He returns after retest to confirm diagnosis and severity of his sleep apnea. He is to continue with CPAP therapy with pressure set at 9-12 cmH2O which has shown good efficacy of apnea control. He is in need of a new machine because his machine is very old. He also would like to [facility]. I will put together a order for a new machine and supplies and [facility]. He wants a specific mask, the ResMed MicroMirage nasal cushion mask. He needs an XL cushion and medium headgear. I will put order together and [facility]. The patients CPAP is over 5 years old and of reasonable use. Thus, the CPAP will be updated. A DWO prescription will be made. Compliance guidelines for new device and follow up discussed. Patient's apnea severity and rationale for treatment to reduce apnea, improve sleep quality and reduce cardiovascular and cerebrovascular events was reviewed. I also reviewed the benefit of consistent device use of CPAP for cardiac disease, diabetes. 2. Hypoxemia, mild, with a scotty oxygen saturation of 82% and 255.9 minutes spent under 90%. The baseline oxygen saturation was low normal with an average oxygen saturation of 89%. He says he uses nocturnal oxygen and needs an adaptor for his machine to bleed the oxygen through his CPAP. I will add the adaptor to his DME order. 3. Obesity, unspecified. Currently patients BMI is 38.7. Obesity increases the risk of apnea, CPAP pressure requirements and overall health risks especially cardiovascular and diabetes. Thus patient is advised to lose weight. * Continue auto CPAP pressure at 9-12 cmH2O * Update machine * [facility] * Update supplies * Notify me if snoring with mask or feeling that the pressure is too much or too little * Attempt to lose weight * Call this office if any problems using CPAP * Return for follow up one month after obtaining new device, or sooner if concerns arise ADDENDUM: We pulled his data and in last 90 days he has used his device nightly. His compliance is at 100%. His pressure is set at 9-12 cmH2O with an average residual AHI of 2.7. His average night is 8 hours and 9 minutes. Continue with device pressure at (cmH2O): 9-12 Counseling Topics: Weight loss health impact Prescriptions: Auto CPAP, Device supplies Visit Type: In Office Time Spent with Patient (minutes): 28 Provider Statement: I spent 100% of the Face to Face Visit with the patient with greater than 50% spent counseling the patient and coordination of care.
[2023-12-12 14:14] VITALS: BP 115/56; O2SAT 95
== END 2023-12-12 12:56 | disposition home or self-care (01) ==
LOC: SC 12:55
PROVIDERS: ATTEND Nurse Practitioner Family
DX: G47.33 Obstructive sleep apnea (adult) (pediatric) (principal); R09.02 Hypoxemia; E66.9 Obesity, unspecified; Z68.38 Body mass index [BMI] 38.0-38.9, adult
CPT/HCPCS: 99212; 99213

== ENCOUNTER 2024-01-09 13:34 | Emergency (ER) | payer MEDICARE, OTHER ==
--- NOTE | 2024-01-09 14:02 | ED Physician Documentation ---
History of Present Illness - Stated complaint Stated Complaint: LOSS OF VISION LT EYE - Chief complaint Chief Complaint: [place] PD PAST MEDICAL HISTORY - Past Medical History Cardiovascular: Congestive heart failure, High cholesterol, Coronary artery disease, Deep vein thrombosis, Pulmonary embolism, [place] Respiratory: Pneumonia, Sleep apnea, CPAP use Neuro: Headaches Endocrine/Autoimmune: Type 2 diabetes GI: Colon polyps, Hemorrhoids, Other : Retention HEENT: Chronic vision loss Psych: Anxiety, Claustrophobia Musculoskeletal: Osteoarthritis, Other Derm: Other - Past Surgical History Past Surgical History: Yes General: Colonoscopy, Other Ortho: Knee replacement Cardiovascular: AICD HEENT: Cataracts, Tonsil/Adenoidectomy - Present Medications Home Medications: Ambulatory Orders Medication Instructions Recorded Confirmed Morphine Sulfate [Ms Contin] 15 mg PO TID 03/30/14 12/12/23 Atorvastatin [Lipitor] 20 mg PO QPM 04/19/18 12/12/23 Losartan [Cozaar] 50 mg PO DAILY 04/19/18 12/12/23 Cholecalciferol (Vitamin D3) 2,000 unit PO DAILY 10/18/18 12/12/23 [Vitamin D3] Melatonin 3 mg PO QPM PRN 10/17/19 12/12/23 Furosemide [Lasix] 20 mg PO DAILY #30 tablet 04/28/21 12/12/23 Tamsulosin [Flomax] 0.4 mg PO QPM 05/03/21 12/12/23 bisoproloL fumarate [Bisoprolol 5 mg PO QPM 05/03/21 12/12/23 Fumarate] Apixaban [Eliquis] 5 mg PO BID 12/07/21 12/12/23 Hydrocodone/Acetaminophen 2 each PO BID 12/07/21 12/12/23 [Hydrocodone-Acetamin 5-300 mg] Empagliflozin [Jardiance] See Rx Instructions .ROUTE .COMPLEX 08/03/23 12/12/23 Insulin Glargine [Lantus Solostar] See Rx Instructions .ROUTE .COMPLEX 08/03/23 12/12/23 Ketoconazole 2% Cream [Nizoral 2% See Rx Instructions .ROUTE .COMPLEX 08/03/23 12/12/23 Cream] Mupirocin 2% Oint [Bactroban 2% See Rx Instructions .ROUTE .COMPLEX 08/03/23 12/12/23 Oint] Nitroglycerin [Nitrostat] See Rx Instructions .ROUTE .COMPLEX 08/03/23 12/12/23 [place]-3 Fatty Acids [[place]-3] See Rx Instructions .ROUTE .COMPLEX 08/03/23 12/12/23 Semaglutide [Ozempic] See Rx Instructions .ROUTE .COMPLEX 08/03/23 12/12/23 Tadalafil [Cialis] See Rx Instructions .ROUTE .COMPLEX 08/03/23 12/12/23 traZODone [Desyrel] See Rx Instructions .ROUTE .COMPLEX 08/03/23 12/12/23 - Allergies Allergies/Adverse Reactions: Allergies Allergy/AdvReac Type Severity Reaction Status Date / Time finasteride Allergy Rash Verified 01/09/24 13:43 lisinopril Allergy Anaphylaxis Verified 01/09/24 13:43 hydromorphone HCl * AdvReac Intermediate Respiratory Verified 01/09/24 13:43 [From Dilaudid] - Social History Does the pt smoke?: Yes Smoking Status: Current every day smoker Does the pt drink ETOH?: No Does the pt have substance abuse?: No - Immunizations Immunizations are current?: Yes - POLST Patient has POLST: No POLST Status: Full Code PD ED PE NORMAL - Vitals Vital signs reviewed: Yes - General General: Alert and oriented X 3 - HEENT HEENT: Atraumatic - Neck Neck: Supple, no meningeal sign - Cardiac Cardiac: RRR, No murmur, No gallop - Respiratory Respiratory: No respiratory distress, Clear bilaterally - Male Male : Deferred - Rectal Rectal: Deferred - Back Back: No CVA TTP - Neuro Neuro: Alert and oriented X 3 Eye Opening: Spontaneous Motor: Obeys Commands Verbal: Oriented GCS Score: 15 - Psych Psych: Normal mood Results - Vitals Vitals: Vital Signs - 24 hr 01/09/24 01/09/24 01/09/24 13:43 13:46 13:49 Temperature 36.7 C Heart Rate 65 56 L Respiratory 16 17 17 Rate Blood Pressure 98/53 L 89/54 L O2 Saturation 99 95 Oxygen O2 Source Room air - Labs Labs: Laboratory Tests 01/09/24 01/09/24 14:12 14:12 WBC 8.0 RBC 4.06 L Hgb 11.9 L Hct 36.0 L MCV 88.7 MCH 29.3 MCHC 33.1 RDW 16.0 H Plt Count 156 MPV 9.6 Neut # (Auto) 5.8 Lymph # (Auto) 1.4 L [place] # (Auto) 0.6 Eos # (Auto) 0.2 Baso # (Auto) 0.0 Absolute Nucleated RBC 0.00 Nucleated RBC % 0.0 Sodium 139 Potassium 4.4 Chloride 106 Carbon Dioxide 26 Anion Gap 7.0 BUN 36 H Creatinine 1.8 H Estimated GFR (MDRD) 37 L Glucose 110 H Calcium 9.6 Total Bilirubin 0.9 AST 38 ALT 23 Alkaline Phosphatase 28 L Total Protein 6.3 L Albumin 4.0 Globulin 2.3 Albumin/Globulin Ratio 1.7 - Rads (name of study) CT head Relevant Findings:: Final report received, EMP independent interpretation of test PD Medical Decision Making - ED course Complexity details: reviewed old records, reviewed results ED course: Patient is a 73-year-old male presenting to the emergency department with loss of vision for 4 minutes yesterday. Patient notes pain symptoms came on suddenly while he was sitting at home. He closed his eyes and symptoms resolved after about 4 minutes. He denies any flashing lights or floaters associate with his symptoms. He did report some mild left eye pain as well. He notes symptoms have since resolved but he called his nurse this morning and they instructed him to come to the ER. Patient has past medical history of cataracts to his left eye. Vital stable on arrival. Physical exam shows visual acuity intact left worse than right. Patient does wear glasses at baseline. No focal ne urodeficits on examination on arrival. Patient's blood pressures were soft but otherwise no acute findings. CT scan of the head obtained given patient's vision loss concerns for possible ischemia however shows no acute changes however patient does have chronic ischemic changes consistent with previous stroke in the past that he does have a history of. Basic labs obtained here in the emergency department show slightly elevated creatinine at 1.8 however baseline creatinine was obtained multiple years ago no recent creatinine level to compare to low suspicion of SPENSER no significant electrolyte abnormalities. Discussed case with brake repair mechanic Dr. Devi who is patient's brake repair mechanic and has seen in the outpatient setting. He is agreeable with workup here in emergency department. No acute findings on fluorescein stain and a bedside ultrasound was performed that showed no acute findings. Patient was updated on reassuring findings he will follow-up in Dr. Devi's office at 1:15 on Sunday and [place]. Patient is agreeable with this plan. He would return to the emergency department with any new or worsening symptoms Departure - Departure Disposition: 01 Home, Self Care Clinical Impression: Blurry vision, left eye Condition: Good Comments: Follow-up with opthamology in outpatient setting. Forms: PCP List
[2024-01-09] MEDS: PROPARACAINE 0.5% OPHTH DROPS 15 ML LEFTEYE STA (14:19)
[2024-01-09 14:20] LABS: BASOPHILS % (AUTO) 0.4 %; EOSINOPHILS # (AUTO) 0.2 10^3/uL (0.0-0.7); EOSINOPHILS % (AUTO) 2.9 %; HGB - HEMOGLOBIN 11.9 g/dL (14.0-18.0); LYMPHOCYTES # (AUTO) 1.4 10^3/uL (1.5-3.5); LYMPHOCYTES % (AUTO) 17.1 %; MEAN CORPUSCULAR HEMOGLOBIN 29.3 pg (27.0-31.0); MEAN CORPUSCULAR HGB CONC 33.1 g/dL (32.0-36.0); MEAN CORPUSCULAR VOLUME 88.7 fL (80.0-94.0); MEAN PLATELET VOLUME 9.6 fL (7.4-11.4); MONOCYTES # (AUTO) 0.6 10^3/uL (0.0-1.0); MONOCYTES % (AUTO) 6.9 %; NEUTROPHILS # (AUTO) 5.8 10^3/uL (1.5-6.6); NEUTROPHILS % (AUTO) 72.5 %; PLT - PLATELET COUNT 156 10^3/uL (130-450); RED BLOOD COUNT 4.06 10^6/uL (4.70-6.10)
[2024-01-09 14:57] LABS: ALBUMIN/GLOBULIN RATIO 1.7 (1.0-2.2); BILIRUBIN,TOTAL 0.9 mg/dL (0.2-1.0); CALCIUM 9.6 mg/dL (8.5-10.3); CREATININE 1.8 mg/dL (0.6-1.3); POTASSIUM 4.4 mmol/L (3.5-4.5); TOTAL PROTEIN 6.3 g/dL (6.4-8.9)
--- NOTE | 2024-01-09 15:51 | CT Report ---
PROCEDURE: Head WO INDICATIONS: loss of vision right eye, eval for ischemia TECHNIQUE: Noncontrast 4.5 mm thick angled axial sections acquired from the foramen magnum to the vertex. For r adiation dose reduction, the following was used: automated exposure control, adjustment of mA and/or kV according to patient size. COMPARISON: 01/26/2017. FINDINGS: Image quality: Excellent. CSF spaces: Basal cisterns are patent. No extra-axial fluid collections. Ventricles are normal in size and shape. Brain: No midline shift. No intracranial masses or hemorrhage. Hoang-white matter interface is norm al. Skull and face: Calvarium and visualized facial bones are intact, without suspicious lesions. Sinuses: Visualized sinuses and mastoids are clear. IMPRESSION: No acute intracranial pathology. Reviewed by: Reji Broussard MD on 01/09/2024 3:50 PM PDT Approved by: Reji Broussard MD on 01/09/2024 3:50 PM PDT Station ID: [id number]
[2024-01-09 16:33] VITALS: BP 102/55; O2SAT 96
== END 2024-01-09 16:40 | disposition home or self-care (01) ==
LOC: ED 13:34
DX: H53.8 Other visual disturbances (principal); I50.9 Heart failure, unspecified; E78.00 Pure hypercholesterolemia, unspecified; I25.10 Atherosclerotic heart disease of native coronary artery without angina pectoris; I25.2 Old myocardial infarction; Z86.718 Personal history of other venous thrombosis and embolism; Z86.711 Personal history of pulmonary embolism; E11.9 Type 2 diabetes mellitus without complications; Z86.010 Personal history of colon polyps; Z79.4 Long term (current) use of insulin; Z79.01 Long term (current) use of anticoagulants; Z79.899 Other long term (current) drug therapy
CPT/HCPCS: 36415; 70450; 80053; 85025; 99284; J3490

== ENCOUNTER 2024-01-29 08:00 | Outpatient (CLI) | payer MEDICARE, OTHER ==
--- NOTE | 2024-01-30 13:44 | XRAY Report ---
PROCEDURE: Chest 2V INDICATIONS: CERVICAL LYMPHADENOPATHY, RIGHT TECHNIQUE: 2 views of the chest were obtained. COMPARISON: None. FINDINGS: Surgical changes and devices: Left single lead defibrillator Lungs and pleura: No pleural effusions or pneumothorax. Lungs are clear. Mediastinum: Mediastinal contours appear normal. Heart size is normal. Bones and chest wall: No suspicious bony lesions. Overlying soft tissues appear unremarkable. IMPRESSION: No acute cardio pulmonary findings Reviewed by: Spencer Kendall MD on 01/30/2024 12:43 PM AKTUTU Approved by: Spencer Kendall MD on 01/30/2024 12:43 PM AKDT Station ID: [id number]
== END 2024-01-29 23:59 | disposition home or self-care (01) ==
LOC: DI.S 08:00
PROVIDERS: ATTEND Emergency Medicine
DX: R59.0 Localized enlarged lymph nodes (principal)

== ENCOUNTER 2024-01-30 11:22 | Outpatient (CLI) | payer MEDICARE, OTHER ==
[2024-01-30 11:37] LABS: BASOPHILS % (AUTO) 0.5 %; EOSINOPHILS # (AUTO) 0.2 10^3/uL (0.0-0.7); HCT - HEMATOCRIT 37.5 % (42.0-52.0); HGB - HEMOGLOBIN 12.6 g/dL (14.0-18.0); LYMPHOCYTES # (AUTO) 1.4 10^3/uL (1.5-3.5); LYMPHOCYTES % (AUTO) 17.6 %; MEAN CORPUSCULAR HEMOGLOBIN 29.7 pg (27.0-31.0); MEAN CORPUSCULAR HGB CONC 33.6 g/dL (32.0-36.0); MEAN CORPUSCULAR VOLUME 88.4 fL (80.0-94.0); MEAN PLATELET VOLUME 9.1 fL (7.4-11.4); MONOCYTES # (AUTO) 0.6 10^3/uL (0.0-1.0); MONOCYTES % (AUTO) 7.9 %; NEUTROPHILS # (AUTO) 5.6 10^3/uL (1.5-6.6); NEUTROPHILS % (AUTO) 70.6 %; PLT - PLATELET COUNT 165 10^3/uL (130-450); RED BLOOD COUNT 4.24 10^6/uL (4.70-6.10); RED CELL DISTRIBUTION WIDTH 15.9 % (12.0-15.0)
[2024-01-30 12:03] LABS: ALBUMIN 4.2 g/dL (3.2-5.5); ALBUMIN/GLOBULIN RATIO 1.7 (1.0-2.2); BILIRUBIN,TOTAL 0.8 mg/dL (0.2-1.0); CALCIUM 9.6 mg/dL (8.5-10.3); CREATININE 1.6 mg/dL (0.6-1.3); POTASSIUM 4.2 mmol/L (3.5-4.5); TOTAL PROTEIN 6.7 g/dL (6.4-8.9)
== END 2024-01-30 11:23 | disposition home or self-care (01) ==
LOC: LAB 11:22
PROVIDERS: ATTEND Emergency Medicine
DX: R59.0 Localized enlarged lymph nodes (principal)
CPT/HCPCS: 36415; 80053; 85025